=== PATIENT | male | born 1985 | race Caucasian/White ===

== ENCOUNTER 2016-12-09 17:14 | Inpatient (IN) | payer BC, OTHER ==
[~2016-12-09] VITALS: Ht 182.9 cm; Wt 81.6 kg
[2016-12-10 02:45] VITALS: BP 116/65
[2016-12-10] MEDS ORDERED: HYDROXYZINE PAMOATE 25 MG CAPSULE PO PRN (02:45)
[2016-12-10] MEDS ORDERED: LORAZEPAM 1 MG TABLET PO PRN (02:45)
[2016-12-10] MEDS ORDERED: MAGNESIUM HYDROXIDE 30 ML LIQUID UDC PO PRN (02:45)
[2016-12-10] MEDS ORDERED: BUPRENORPHINE HCL 2 MG TAB.SUBL SL PRN (02:45)
[2016-12-10] MEDS ORDERED: ONDANSETRON ODT 4 MG TAB.RAPDIS SL PRN (02:45)
[2016-12-10] MEDS ORDERED: CLONIDINE HCL 0.1 MG TABLET PO PRN (02:45)
[2016-12-10] MEDS ORDERED: MIRALAX 17 GM POWD.PACK PO PRN (02:45)
[2016-12-10] MEDS ORDERED: ONDANSETRON 4 MG/2 ML VIAL IM PRN (02:45)
[2016-12-10] MEDS ORDERED: MAG HYDROX/AL HYDROX/SIMETH 30 ML LIQUID UDC PO PRN (02:45)
[2016-12-10] MEDS ORDERED: LOPERAMIDE HCL 2 MG CAPSULE PO PRN ×2 (02:45)
[2016-12-10] MEDS ORDERED: METHOCARBAMOL 750 MG TABLET PO PRN (02:45)
[2016-12-10] MEDS ORDERED: IBUPROFEN 400 MG TABLET PO PRN (02:45)
[2016-12-10] MEDS ORDERED: DICYCLOMINE HCL 20 MG TABLET PO PRN (02:45)
--- NOTE | 2016-12-10 02:45 | NUR ---
INTAKE ASSESSMENT VS BP-116/65 T- 98.2 P-83 R-18 PA- 0/10. SpO2 AT 95 % IN RA. PATIENT ABLE TO ANSWERS QUESTIONS. SPEECH IS CLEAR AND GAIT IS STEADY. PATIENT STATES HES TIRED. DENIES ANY PAIN. HE STATES HES NOT ALLERGIC TO ANY FOOD OR MEDICATIONS. HE HAS SEIZURE HISTORY, LAST ONE WAS 2015 D/T BENZO W/D. HES HERE FOR THESE SUBSTANCES: XANAX , HEROIN IV AND COCAINE IV. WILL CONTINUE ADMISSION ON 3RD FLOOR.
[2016-12-10] MEDS ORDERED: LORAZEPAM 2 MG/1 ML VIAL IM PRN (03:00)
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
[2016-12-10] MEDS ORDERED: ESCI10TA55 PO (03:56)
[2016-12-10] MEDS ORDERED: METH-406 PO (03:56)
[2016-12-10] MEDS ORDERED: MULT-1169 PO (03:56)
[2016-12-10] MEDS ORDERED: BUSP10TA3 PO (03:56)
[2016-12-10] MEDS ORDERED: CLON0.1T PO (03:56)
[2016-12-10] MEDS ORDERED: GABA600T2 PO (03:56)
--- NOTE | 2016-12-10 07:15 | NUR ---
END OF SHIFT NOTE PATIENT IS A 31 YEAR OLD MALE, NEWLY ADMITTED FOR BENZO/HEROIN AND COCAINE DEPENDENCE. PATIENT DID NOT SLEEP. FLUID INTAKE OF 680 ML. VOIDED X 1. NO BM. LAST COWS 3 AND CIWA 2. ON FALL/SEIZURE PRECAUTION. SAFETY MEASURES IN PLACE. CALL LIGHT IN REACH. WILL CONTINUE TO MONITOR.
--- NOTE | 2016-12-10 07:22 | NUR ---
START OF SHIFT NOTE Patient is laying in bed asleep. Respirations are even and unlabored. patient just feel asleep, did not sleep last night. Last COWS 3 CIWA 2 per night nurse. No PRNs given last night. All safety measures in place. WIll continue to monitor patient.
[2016-12-10 08:18] LABS: *AMPHETAMINE, URINE NEGATIVE (NEGATIVE); *BARBITURATE, URINE NEGATIVE (NEGATIVE); *CANNABINOID, URINE POSITIVE (NEGATIVE); *COCCAINE, URINE POSITIVE (NEGATIVE); *OPIATE, URINE POSITIVE (NEGATIVE); *PHENCYCLIDINE SCREEN,URINE NEGATIVE (NEGATIVE)
[2016-12-10 08:49] VITALS: BP 90/58
[2016-12-10] MEDS ORDERED: TUBERCULIN,PURIF.PROT.DERIV. 5 TU/0.1 ML TEST ID ONE (09:00)
[2016-12-10] MEDS: MULTIVITAMINS,THERAPEUTIC TABLET PO SCH (09:18)
[2016-12-10] MEDS ORDERED: GABAPENTIN 300 MG CAPSULE PO SCH (11:15)
[2016-12-10] MEDS: busPIRone 10 MG TABLET PO SCH ×2 (11:29→17:07)
[2016-12-10] MEDS: ESCITALOPRAM OXALATE 10 MG TABLET PO SCH (11:29)
[2016-12-10] MEDS: LORAZEPAM 1 MG TABLET PO SCH ×3 (12:20→21:03)
[2016-12-10 12:30] VITALS: BP 105/67
[2016-12-10] MEDS: GABAPENTIN 300 MG CAPSULE PO SCH ×2 (15:18→21:03)
[2016-12-10 17:20] VITALS: BP 123/75
--- NOTE | 2016-12-10 18:40 | NUR ---
END OF SHIFT NOTE Patient is a 31 year old male admitted last night for Xanax, heroin, and cocaine. He is alert and orientated X4. Vital signs remained within normal limits throughout the day. Last COWS 6 CIWA 5. Patient has a history of seizures from withdrawal. He refused blood drawls. Patient slept most of the day today. No PRNS given. Patient was seen by Dr. Nicole, 4 day Subutex taper is scheduled to begin tomorrow. All needs have been met. All safety measures in place. Will continue to monitor patient until endorsed to oncoming night nurse.
--- NOTE | 2016-12-10 19:55 | NUR ---
START OF SHIFT Received report from day shift nurse. Pt is in his room watching TV. He is a 31 yo male admitted to [facility] on 12/10 for BZD and Opiate dependence. He is A&O x4 and ambulatory. NKA, full code status, and on a regular diet. He has a PMH of seizure, appendectomy, broken jaw, broken right large toe, bowel obstruction w/surgery, anxiety, and depression. On admission he reported using xanax 10mg per day for two weeks, heroin 1 gram per day for two weeks, and cocaine IV 0.5 grams per day for two weeks. 5 Day Ativan taper started today. 4 day Subutex taper scheduled to start tomorrow based on withdrawal symptoms. Pt reports anxiety. He is noted with flushed face and larger than normal size pupils. Fall and seizure precautions in place. Bed is down with call light in reach.
[2016-12-10 20:00] VITALS: BP 137/80
[2016-12-10] MEDS: diphenhydrAMINE 50 MG CAPSULE PO PRN (21:10)
[2016-12-10] MEDS: ACETAMINOPHEN 325 MG TABLET PO PRN (21:10)
--- NOTE | 2016-12-10 21:11 | NUR ---
PRN Tylenol and Benadryl Pt c/o headache and inability to sleep. PRN Tylenol and Benadryl administered.
--- NOTE | 2016-12-10 22:11 | NUR ---
PRN Tylenol and Benadryl reassessment PRN Tylenol and Benadryl effective. Pt is lying in bed resting with eyes closed. Respirations even and unlabored. Safety measures in place.
[2016-12-11] VITALS: BP 111/71
--- NOTE | 2016-12-11 | NUR ---
0000 COWS and CIWA deferred COWS and CIWA ordered Q4HWA. Pt is lying in bed resting with eyes closed. Vital signs obtained. Safety measures in place.
[2016-12-11 04:00] VITALS: BP 118/72
--- NOTE | 2016-12-11 04:00 | NUR ---
0400 COWS and CIWA deferred COWS and CIWA ordered Q4HWA. Pt is lying in bed resting with eyes closed. Vital signs obtained. Safety measures in place.
--- NOTE | 2016-12-11 07:23 | NUR ---
END OF SHIFT Report provided to day shift nurse. Pt is lying in bed resting. He is a 31 yo male admitted to [facility] on 12/10 for BZD and Opiate dependence. He is A&O x4 and ambulatory. NKA, full code status, and on a regular diet. He has a PMH of seizure, appendectomy, broken jaw, broken right large toe, bowel obstruction w/surgery, anxiety, and depression. On admission he reported using xanax 10mg per day for two weeks, heroin 1 gram per day for two weeks, and cocaine IV 0.5 grams per day for two weeks. 5 Day Ativan taper started 12/10. 4 day Subutex taper scheduled to start today pending withdrawal symptoms. PRN Tylenol and Benadryl administered. Last COWS 6 and CIWA 5 before night medications. He drank 840mL and slept for 8 hours. Fall and seizure precautions in place. Bed is down with call light in reach.
--- NOTE | 2016-12-11 07:33 | NUR ---
START OF SHIFT NOTE Patient is alert and orientated X4 laying in bed resting. Respirations are even and unlabored. Patient slep 8 hours last night per night nurse. Last CIWA 5 COWS 6. He was given Tylenol and Benadryl last night per night nurse with effectiveness. Patient is on a 5 day Ativan taper and starts a 4 day subutex taper today. All safety measures in place. Will continue to monitor patient.
[2016-12-11 08:10] VITALS: BP 113/68
[2016-12-11] MEDS: GABAPENTIN 300 MG CAPSULE PO SCH ×3 (08:37→20:23)
[2016-12-11] MEDS: ESCITALOPRAM OXALATE 10 MG TABLET PO SCH (08:37)
[2016-12-11] MEDS: busPIRone 10 MG TABLET PO SCH ×2 (08:37→16:21)
[2016-12-11] MEDS: LORAZEPAM 1 MG TABLET PO SCH ×3 (08:37→20:23)
[2016-12-11] MEDS: MULTIVITAMINS,THERAPEUTIC TABLET PO SCH (08:37)
[2016-12-11] MEDS ORDERED: 4 DAY TAPER BUPRENORPHINE -SERENITY PROTOCOL SL PRN (09:00)
[2016-12-11] MEDS: BUPRENORPHINE HCL 2 MG TAB.SUBL SL SCH ×3 (09:17→20:24)
[2016-12-11 12:57] VITALS: BP 139/84
[2016-12-11 17:51] VITALS: BP 102/62
--- NOTE | 2016-12-11 18:47 | NUR ---
END OF SHIFT NOTE Patient is a 31 year old male admitted on 12/10/16 for Heroin , Xanax, and cocaine. Patient is a full code regular diet with NKA. Patient is a on a 4 day Subutex taper started 12/11/16 and 5 day Ativan taper started 12/10/16 both tolerating well. No prns given today. Last COWS 7 CIWA5 vitals remained within normal limits throughout the day. Patient participated in group and activities today. He has been compliant with MDs orders except refused blood drawl and is aware. All safety measures are in place per hospital policy. All needs have been met. Will continue to monitor patient until endorsed to night nurse.
--- NOTE | 2016-12-11 19:50 | NUR ---
START OF SHIFT Received report from day shift nurse. Pt attended a group meeting and returned to his room after. He is a 31 yo male admitted to [facility] on 12/10 for BZD and Opiate dependence. He is A&O x4 and ambulatory. NKA, full code status, and on a regular diet. He has a PMH of seizure, appendectomy, broken jaw, broken right large toe, bowel obstruction w/surgery, anxiety, and depression. On admission he reported using xanax 10mg per day for two weeks, heroin 1 gram per day for two weeks, and cocaine IV 0.5 grams per day for two weeks. 5 Day Ativan taper started 12/10 and 4 day Subutex taper started today. Pt reports anxiety, body aches, and chills. He is noted with facial flushing. Tapers due tonight. Fall and seizure precautions in place. Bed is down with call light in reach.
[2016-12-11 20:00] VITALS: BP 150/89
[2016-12-11] MEDS: diphenhydrAMINE 50 MG CAPSULE PO PRN (23:14)
--- NOTE | 2016-12-11 23:15 | NUR ---
PRN Benadryl Pt reports inability to fall asleep. PRN Benadryl administered.
[2016-12-12] VITALS: BP 126/86
--- NOTE | 2016-12-12 00:15 | NUR ---
PRN Benadryl reassessment PRN Benadryl effective. Pt is lying in bed resting with eyes closed. Respirations even and unlabored. Safety measures in place.
[2016-12-12 04:00] VITALS: BP 120/75
--- NOTE | 2016-12-12 04:00 | NUR ---
0400 COWS and CIWA deferred COWS and CIWA ordered Q4HWA. Pt is lying in bed resting with eyes closed. Vital signs obtained. Safety measures in place.
--- NOTE | 2016-12-12 07:11 | NUR ---
END OF SHIFT Report provided to day shift nurse. Pt is lying in bed resting. He is a 31 yo male admitted to [facility] on 12/10 for BZD and Opiate dependence. He is A&O x4 and ambulatory. NKA, full code status, and on a regular diet. He has a PMH of seizure, appendectomy, broken jaw, broken right large toe, bowel obstruction w/surgery, anxiety, and depression. On admission he reported using xanax 10mg per day for two weeks, heroin 1 gram per day for two weeks, and cocaine IV 0.5 grams per day for two weeks. 5 Day Ativan taper started 12/10 and 4 day Subutex taper started 12/11. PRN Benadryl administered. Last COWS 5 and CIWA 3. He drank 3574mL and slept for 7 hours. Fall and seizure precautions in place. Bed is down with call light in reach.
--- NOTE | 2016-12-12 07:32 | NUR ---
START OF SHIFT: RECEIVED PT A/O X 4. HE PRESENTS WITH ANXIOUS MOOD AND CONGRUENT AFFECT. HE REPORTS SOME MILD ANXIETY,NIGHT SWEATS AND BODY ACHES. HE ATIVAN/SUBUTEX TAPER IN PROGRESS. WILL MEDICATE ORDERED. REEMA 3 COWS 5. ENCOURAGED INCREASED FLUIDS TO ASSIST IN FACILITATING DETOX PROCESS. ENCOURAGED GROUP ATTENDANCE TO IMPROVE COPING SKILLS. WILL CONTINUE TO MONITOR AND OFFER SUPPORT. Addendum: 12/12/16 at 0903 by JAI JAUREGUI RN correction cows 8
[2016-12-12 08:00] VITALS: BP 138/91
[2016-12-12] MEDS: GABAPENTIN 300 MG CAPSULE PO SCH ×3 (08:51→21:07)
[2016-12-12] MEDS: busPIRone 10 MG TABLET PO SCH ×2 (08:51→16:47)
[2016-12-12] MEDS: MULTIVITAMINS,THERAPEUTIC TABLET PO SCH (08:52)
[2016-12-12] MEDS: LORAZEPAM 1 MG TABLET PO SCH ×4 (08:52→21:07)
[2016-12-12] MEDS: ESCITALOPRAM OXALATE 10 MG TABLET PO SCH (08:52)
[2016-12-12] MEDS ORDERED: BUPRENORPHINE HCL 2 MG TAB.SUBL SL SCH (09:00)
[2016-12-12] MEDS ORDERED: HYDROXYZINE PAMOATE 25 MG CAPSULE PO PRN (10:15)
[2016-12-12 12:00] VITALS: BP 132/82
--- NOTE | 2016-12-12 13:14 | NUR ---
Therapist prompted client about group times. Client stated he would attend all groups today.
[2016-12-12] MEDS: BUPRENORPHINE HCL 2 MG TAB.SUBL SL SCH ×2 (15:08→21:08)
[2016-12-12 16:00] VITALS: BP 118/84
--- NOTE | 2016-12-12 18:43 | NUR ---
END OF SHIFT: PT CONTINUES ON ATIVAN/SUBUTEX TAPER. LAST CIWA 2 COWS 5. HE STATES HE REPORTED RESTLESSNESS,ANXIETY,CHILLS AND SWEATS TODAY. HE STATES DETOX MEDS ARE EFFECTIVE. NO PRNS GIVEN ON THIS SHIFT. HE ATTENDED ONE OF THE TWO GROUPS AND RESTED IN HIS ROOM PART OF SHIFT. HE WAS COMPLIANT WITH INCREASED FLUIDS. WILL PASS SHIFT REPORT TO ONCOMING NIGHT NURSE.
[2016-12-12 20:10] VITALS: BP 127/78
--- NOTE | 2016-12-12 20:15 | NUR ---
Start of shift report: Rec'd patient resting in room. A/A Ox4. Afebrile and vital signs are stable. Patient is on Subutrex 4 days/Ativan 5 days taper. Patient report mild anxiety. Patient 's COWS score is 5/CIWA is 2. Patient encouraged to increase fluids intake to assist in facilitating Detox process. Encouraged group attendance to improved coping skills. No other concerns at this time. Safety precaution in progress. Bed is in the lowest position, side rails are up and call light within reach.
[2016-12-12] MEDS: diphenhydrAMINE 50 MG CAPSULE PO PRN (21:22)
--- NOTE | 2016-12-12 21:22 | NUR ---
PRN Medication: Patient requested Benadryl for sleep. Benadryl given per request. Will continue to monitor closely.
--- NOTE | 2016-12-12 22:22 | NUR ---
Benadryl Reassessment: Sleeping soundly in bed. No signs of distress. Will continue to monitor closely.
--- NOTE | 2016-12-13 01:37 | NUR ---
0035: 0000 Vital signs refused. CIWA & COWS deferred. Resting quietly in bed. Resp even and unlabored. RR 16. Will continue to monitor closely.
--- NOTE | 2016-12-13 06:44 | NUR ---
EOS report: No interval changes during the night. Ativan and Subutex taper in progress and patient tolerating well. Vital signs remained stable. Rec'd 1 prn medication during the night. Patient slept 6 hrs. No other concerns at this time. All needs were met. Safety and fall precaution maintained. Will endorse to oncoming shiftn to follow up care.
--- NOTE | 2016-12-13 07:10 | NUR ---
Start of shift note SBAR report rcv'd. Pt was admitted for benzo and opiate dependence and cocaine abuse. Pt has a PMHx of anxiety, depression, and withdrawal induced seizures. Pt is on a 4 day subutex and 5 day ativan taper. Pt reports NKA, is a full code and on a regular diet. Pt is currently resting in bed, pt is on fall and seizure precautions. Bed is locked in a low position, call light within reach, side rails up x 2. Will continue to monitor pt, all needs addressed at this time.
[2016-12-13 08:00] VITALS: BP 119/73
[2016-12-13] MEDS: MULTIVITAMINS,THERAPEUTIC TABLET PO SCH (09:43)
[2016-12-13] MEDS: ESCITALOPRAM OXALATE 10 MG TABLET PO SCH (09:43)
[2016-12-13] MEDS: GABAPENTIN 300 MG CAPSULE PO SCH ×3 (09:44→20:20)
[2016-12-13] MEDS: busPIRone 10 MG TABLET PO SCH ×2 (09:44→17:28)
[2016-12-13] MEDS: BUPRENORPHINE HCL 2 MG TAB.SUBL SL SCH ×3 (09:44→20:20)
[2016-12-13] MEDS: LORAZEPAM 1 MG TABLET PO SCH ×3 (09:44→20:20)
[2016-12-13 12:00] VITALS: BP 119/83
[2016-12-13 16:00] VITALS: BP 131/85
--- NOTE | 2016-12-13 18:54 | NUR ---
End of shift note Pt was admitted for benzo and opiate dependence and cocaine abuse. Pt has a PMHx of anxiety, depression, and withdrawal induced seizures. Pt is on a 4 day subutex and 5 day ativan taper and tolerating well without any ASE. Pt reports NKA, is a full code and on a regular diet. Pt did not require any PRN medication during the shift. Pt has a recent COWS of 4 and CIWA of 3 at 1600. Pt is attending groups and activities and participating in plan of care. Pt ate 75% of breakfast, 25% of lunch, 100% of dinner, drank 2992ml of fluids and had 4 voids. Pt has no complaints at this time. Will endorse SBAR to oncoming shift. All needs addressed at this time.
--- NOTE | 2016-12-13 19:55 | NUR ---
Start of shift report: Rec'd patient resting in room. A/A Ox4. Afebrile and vital signs are stable. Patient is on Subutrex 4 days/Ativan 5 days taper. Patient report mild anxiety. Patient 's COWS score is 4/CIWA is 3. Reviewed current plan of care. Patient voiced understanding. Patient requested no vital signs @ midnight and 0400. Patient encouraged to increase fluids intake to assist in facilitating Detox process. Encouraged group attendance to improved coping skills. No other concerns at this time. Safety precaution in progress. Bed is in the lowest position, side rails are up and call light within reach.
[2016-12-13 20:10] VITALS: BP 137/83
[2016-12-13] MEDS: diphenhydrAMINE 50 MG CAPSULE PO PRN (22:13)
--- NOTE | 2016-12-13 22:14 | NUR ---
PRN Medication: Medicated with Benadryl per patient request. Will continue to monitor closely.
--- NOTE | 2016-12-13 23:14 | NUR ---
Benadryl reassessment: Patient resting quietly in bed. No signs of ditress. Will continue to monitor closely.
--- NOTE | 2016-12-14 06:43 | NUR ---
EOS report: No interval changes during the night. Ativan and Subutex taper in progress and patient tolerating well. Vital signs remained stable. Rec'd 1 prn medication during the night. Patient slept a total of 5 hrs. No other concerns at this time. All needs were met. Safety and fall precaution maintained. Bed kept in the lowest position, side rails are up, and call light within reach. Will endorse to oncoming shift to follow up care.
--- NOTE | 2016-12-14 07:45 | NUR ---
BEGINNING OF SHIFT Patient endorsement report received from childcare director nurse, all pertinent information discussed. Patient with admitting Dx: BZO/opiate dependence. Patient also with substance use of: cocaine. Patient currently with ongoing 4 day Ativan taper and 4 day Subutex taper as ordered, as per childcare director. Patient with last cow score of: 4, and last ciwa score of: 3. Patient Received PRN: Benadryl. slept for 5 hours. Fall and seizure precautions observed and in place. safety measures in place. will continue to monitor closely. Patient received in room, alert and oriented x4, educated regarding plan of care for the day and medication regimen with good verbal understanding. Will continue to monitor.
[2016-12-14 08:27] VITALS: BP 118/63
[2016-12-14] MEDS: ESCITALOPRAM OXALATE 10 MG TABLET PO SCH (08:30)
[2016-12-14] MEDS: MULTIVITAMINS,THERAPEUTIC TABLET PO SCH (08:31)
[2016-12-14] MEDS: GABAPENTIN 300 MG CAPSULE PO SCH ×3 (08:31→21:00)
[2016-12-14] MEDS: LORAZEPAM 1 MG TABLET PO SCH ×2 (08:31→21:00)
[2016-12-14] MEDS: busPIRone 10 MG TABLET PO SCH ×2 (08:31→16:00)
[2016-12-14] MEDS ORDERED: BUPRENORPHINE HCL 2 MG TAB.SUBL SL SCH (09:00)
--- NOTE | 2016-12-14 13:04 | NUR ---
explained risk and benefits x 3 to patient regarding refusal of lab draw
[2016-12-14 13:46] VITALS: BP 112/69
[2016-12-14] MEDS: ACETAMINOPHEN 325 MG TABLET PO PRN ×2 (15:59→22:56)
[2016-12-14 17:50] VITALS: BP 137/86
[2016-12-14] MEDS ORDERED: DIPH50CA37 PO (18:01)
[2016-12-14] MEDS ORDERED: ESCI10TA PO (18:01)
[2016-12-14] MEDS ORDERED: HYDR-3895 PO (18:01)
[2016-12-14] MEDS ORDERED: GABA-534 PO (18:01)
[2016-12-14] MEDS ORDERED: METH-406 PO (18:01)
[2016-12-14] MEDS ORDERED: IBUP-1953 PO (18:01)
[2016-12-14] MEDS ORDERED: DICY20TA28 PO (18:01)
--- NOTE | 2016-12-14 19:15 | NUR ---
START OF SHIFT Endorsement from AM nurse received. Patient alert and oriented x4 resting in bed. Patient continues with 5 day Ativan taper and 4 day Subutex taper as ordered for Benzo and opiate detox. Patient last COWS 4 CIWA 3. patient reported joint aches, moist eyes, tremors that can be felt but not seen, and anxiety. Patient denies SI or HI, has history of anxiety and depression. Denies current depression. reports continued anxiety. vital signs stable. Tolerating diet and fluids. no noted nausea or vomiting. Denies current pain. Patient is on a full code and on a regular diet. Safety measures in place. Will continue to monitor.
--- NOTE | 2016-12-14 19:26 | NUR ---
END OF SHIFT Patient alert and oriented x4, vital signs were stable during shift. Patient compliant with therapeutic plan of care. Patient continues with ongoing with ongoing 5 day Ativan taper and 4 day Subutex taper as ordered, well tolerated, no ASE noted. 0900 assessment patient presented with: mild bone and joint aches, moist eyes, tremors that can be felt but not seen, mild anxiety, and barely sweating with cow score of: 4 and ciwa score of: 3; 1300 assessment patient presented with: mild bone and joint aches, moist eyes, tremors that can be felt but not seen, mild anxiety, and barely sweating with cow score of: 4 and ciwa score of: 3. 1700 assessment patient presented with: mild bone and joint aches, moist eyes, tremors that can be felt but not seen, mild anxiety, and barely sweating with cow score of: 4 and ciwa score of: 3 During shift patient received PRN: Tylenol , medication was effective. Patient denies any SI/HI. Encouraged patient to attend group therapies/sessions to learn new coping skills to prevent relapse/ Vital signs were stable during shift. Safety measures in place. Will continue to monitor.
[2016-12-14 20:00] VITALS: BP 139/86
--- NOTE | 2016-12-14 21:16 | NUR ---
PRN MEDICATION Patient with complaints of constipation. Reports no BM x 2 days. Abdomen soft. Bowel sounds active in all quadrants. Milk of Magnesia 30 ML PO administered at 2115. Will continue to monitor.
--- NOTE | 2016-12-14 22:20 | NUR ---
reassessment of PRN Reassessment of patient one hour after Milk of magnesia given. No relief/BM as of late. Patient Bowel sounds active, no noted abdominal pain. Will continue to monitor.
[2016-12-14] MEDS: diphenhydrAMINE 50 MG CAPSULE PO PRN (22:56)
--- NOTE | 2016-12-14 23:00 | NUR ---
PRN MEDICATION Benadryl 50 mg PO given at 2300 for c/o insomnia Effect pending. Tylenol 650 mg PO given at 2300 for C/O tooth pain of a 4 out of 10 upper right side. no edema or abnormality noted. . Effect pending
[2016-12-15] VITALS: BP 121/57
--- NOTE | 2016-12-15 | NUR ---
COWS/CIWA DEFERRED/ VITAL SIGNS REFUSED COWS AND CIWA DEFERRED DUE TO SLEEP. PATIENT REFUSED VITAL SIGNS, REQUESTING TO SLEEP. RESTING COMFORTABLY IN BED. RESPIRATIONS 16 BREATHING UNLABORED AND EVEN.
--- NOTE | 2016-12-15 | NUR ---
REASSESSMENT OF PATIENT PATIENT RESTING COMFORTABLY ONE HOUR AFTER TAKING BENADRYL 50 MG PO FOR INSOMNIA. PATIENT WITH NO FURTHER C/O TOOTH PAIN ONE HOUR AFTER ADMINISTRATION OF TYLENOL 650 MG PO FOR TOOTH PAIN. WILL CONTINUE TO MONITOR.
--- NOTE | 2016-12-15 04:00 | NUR ---
COWS/CIWA DEFERRED VITAL SIGNS REFUSED COWS AND CIWA DEFERRED DUE TO SLEEP. PATIENT REFUSED VITAL SIGNS, RESTING IN BED STATED "I JUST WANT TO SLEEP". RESPIRATIONS 16 BREATHING EVEN AND UNLABORED
--- NOTE | 2016-12-15 07:03 | NUR ---
END OF SHIFT Patient is a 31 year old male admitted on 12-10-16 for opiate and benzodiazepine detox. He was placed on a 4 day subutex and 5 day Ativan taper. He is tolerating tapers without complications noted. Patient with history of seizures related to benzo withdrawal, with last known seizure in 2015. Patient placed on fall and seizure precaution. He has no known allergies, is a full code and on a regular diet. Patients VS at 1999 BP 139/86, P 88, R 16, SPO2 96% on RA, T 97.7. Patient WITH COWS of 2, CIWA of 2. Patient given PRN Milk of Magnesia at 2116 for constipation. Patient did not have BM on PM shift. Patient with no abdominal pain, Abdomen soft and non tender, active Bowel sounds noted in all quadrants. Patient reported last BM x 2-3 days ago. Patient received PRN Benadryl 50 mg PO at 2300 for insomnia as well as Tylenol 650mg PO for C/O tooth pain. Effectiveness noted. Patient was asleep one hour later and refused VS at both 0000 and 0400. COWS and CIWA deferred for sleeping. Patient slept a total of 6 hours Intake 1090 ml. Output: void X 3. No BM on PM shift. Patient currently resting in bed, 2 side rails up, call light within reach, safety measures in place, with endorsement to AM shift.
--- NOTE | 2016-12-15 07:50 | NUR ---
BEGINNING OF SHIFT Patient endorsement report received from shift lab technician nurse, all pertinent information discussed. Patient with admitting Dx: BZO/opiate dependence. Patient also with substance use of: cocaine. Patient currently with ongoing 4 day Ativan taper and 4 day Subutex taper as ordered, as per shift lab technician. Patient with last cow score of: 2, and last ciwa score of: 2. Patient Received PRN: Benadryl, Milk of Magensium, and tylenol, medications were effective as per shift lab technician. slept for 6 hours. Fall and seizure precautions observed and in place. safety measures in place. will continue to monitor closely. Patient received in room, alert and oriented x4, educated regarding plan of care for the day and medication regimen with good verbal understanding. Will continue to monitor.
[2016-12-15 08:13] VITALS: BP 121/77
[2016-12-15] MEDS: GABAPENTIN 300 MG CAPSULE PO SCH ×3 (08:47→21:09)
[2016-12-15] MEDS: MULTIVITAMINS,THERAPEUTIC TABLET PO SCH (08:47)
[2016-12-15] MEDS: busPIRone 10 MG TABLET PO SCH ×2 (08:47→16:09)
[2016-12-15] MEDS: ESCITALOPRAM OXALATE 10 MG TABLET PO SCH (08:48)
[2016-12-15] MEDS ORDERED: CLONIDINE HCL 0.1 MG TABLET PO ONE (12:00)
[2016-12-15] MEDS ORDERED: MIRALAX 17 GM POWD.PACK PO ONE (12:00)
[2016-12-15] MEDS ORDERED: MAGNESIUM CITRATE 296 ML BOTTLE PO PRN (12:00)
[2016-12-15 12:18] VITALS: BP 132/79
[2016-12-15] MEDS: DOCUSATE SODIUM 250 MG CAPSULE PO SCH (12:19)
[2016-12-15] MEDS: CLONIDINE HCL 0.1 MG TABLET PO SCH ×2 (16:09→21:09)
[2016-12-15 16:52] LABS: *AMPHETAMINE, URINE NEGATIVE (NEGATIVE); *BARBITURATE, URINE NEGATIVE (NEGATIVE); *CANNABINOID, URINE NEGATIVE (NEGATIVE); *COCCAINE, URINE NEGATIVE (NEGATIVE); *OPIATE, URINE NEGATIVE (NEGATIVE); *PHENCYCLIDINE SCREEN,URINE NEGATIVE (NEGATIVE)
[2016-12-15 17:11] VITALS: BP 122/76
--- NOTE | 2016-12-15 18:55 | NUR ---
END OF SHIFT Patient alert and oriented x4, vital signs were stable during shift. Patient compliant with therapeutic plan of care. Patient completed 5 day Ativan taper and 4 day Subutex taper, well tolerated, no ASE noted. Patient is scheduled to be discharge tomorrow morning, noted self motivated towards sobriety. 0900 assessment patient presented with: mild bone and joint aches, and mild anxiety with cow score of: 2 and ciwa score of: 1; 1300 assessment patient presented with: mild bone and joint aches, and mild anxiety with cow score of: 2, and ciwa score of: 1; 1700 assessment patient presented with: mild anxiety with cow score of: 1 and ciwa score of: 1. During shift patient received no PRN medications. Patient was seen by Dr. Nicole, patient reports has not had a bowel movement, MD aware with new orders for Miralax and DSS m medications were administered as ordered, patient reported medications were effective, patient had one bowel movement. Patient denies any SI/HI. Encouraged patient to attend group therapies/sessions to learn new coping skills to prevent relapse/ Vital signs were stable during shift. Safety measures in place. Will continue to monitor.
--- NOTE | 2016-12-15 19:15 | NUR ---
START OF SHIFT Endorsement from AM nurse received. Patient alert and oriented x4 ambulating ad keeley on unit.. Patient completed 5 day Ativan taper and 4 day Subutex taper. Patient last COWS 1 CIWA 1. Patient denies SI or HI, has history of anxiety and depression. Denies current depression. reports continued mild anxiety. vital signs stable. Tolerating diet and fluids. no noted nausea or vomiting. Denies current pain. Patient is on a full code and on a regular diet. Safety measures in place. Will continue to monitor.
[2016-12-15 20:00] VITALS: BP 121/79
[2016-12-15] MEDS: diphenhydrAMINE 50 MG CAPSULE PO PRN (22:03)
--- NOTE | 2016-12-15 22:03 | NUR ---
PRN medication Benadryl 50 mg PO given at 2203 for c/o insomnia. Effect pending.
--- NOTE | 2016-12-15 23:05 | NUR ---
REASSESSMENT OF PATIENT PATIENT REASSESSED ONE HOUR AFTER BENADRYL 50 MG PO PRN ADMINISTERED FOR INSOMNIA. PATIENT RESTING COMFORTABLY IN BED WITH EYES CLOSED. RESPIRATIONS 16. BREATHING EVEN AND UNLABORED.
--- NOTE | 2016-12-16 | NUR ---
COWS/CIWA DEFERRED/ VITAL SIGNS REFUSED COWS AND CIWA DEFERRED DUE TO SLEEP. PATIENT REFUSED VITAL SIGNS, REQUESTING TO SLEEP. RESTING COMFORTABLY IN BED. RESPIRATIONS 16.
--- NOTE | 2016-12-16 04:00 | NUR ---
COWS/CIWA DEFERRED/ VITAL SIGNS REFUSED PATIENT REFUSED VITAL SIGNS, REQUESTING TO SLEEP. RESTING COMFORTABLY IN BED. BREATHING EVEN AND UNLABORED WITH RESPIRATIONS 16. COWS AND CIWA DEFERRED DUE TO SLEEP.
--- NOTE | 2016-12-16 06:49 | NUR ---
END OF SHIFT Patient is a 31 year old male admitted on 12-10-16 for opiate and benzodiazepine detox. He was placed on a 4 day subutex and 5 day Ativan taper. He has completed both tapers without complications noted. Patient with history of seizures related to benzodiazepine withdrawal, with last known seizure in 2015. Patient on both fall and seizure precaution. He has no known allergies, is a full code and on a regular diet. Patients VS at 1999 BP 121/79, P 84, R 18, SPO2 98% on RA, T 97.0 Patient WITH COWS of 1, CIWA of 1. Patient received PRN Benadryl 50 mg PO at 2203 for insomnia. Effectiveness noted. Patient was asleep one hour later and refused VS at both 0000 and 0400. COWS and CIWA deferred for sleeping. Patient slept a total of 6 hours Intake: 1055 ml. Output: void X 3 .BM x 1.. Patient currently resting in bed, 2 side rails up, call light within reach, safety measures in place, with endorsement to AM shift.
[2016-12-16 08:00] VITALS: BP 100/67
--- NOTE | 2016-12-16 08:05 | NUR ---
START OF SHIFT: RECEIVED PT A/O X 4. HE STATES HE SLEPT WELL AND IS FEELING BETTER. HE STATES SOME MILD ANXIETY TODAY HE DISCHARGES TO SOBER LIVING.DETOX TAPERS COMPLETED. VSS. DISCHARGE PLANNING IN PROGRESS. WILL CONTINUE TO MONITOR AND PROVIDE SUPPORT.
[2016-12-16] MEDS: MULTIVITAMINS,THERAPEUTIC TABLET PO SCH (08:34)
[2016-12-16 08:35] VITALS: BP 110/67
[2016-12-16] MEDS: DOCUSATE SODIUM 250 MG CAPSULE PO SCH (08:35)
[2016-12-16] MEDS: CLONIDINE HCL 0.1 MG TABLET PO SCH (08:35)
[2016-12-16] MEDS: ESCITALOPRAM OXALATE 10 MG TABLET PO SCH (08:35)
[2016-12-16] MEDS: busPIRone 10 MG TABLET PO SCH (08:35)
[2016-12-16] MEDS: GABAPENTIN 300 MG CAPSULE PO SCH (08:35)
--- NOTE | 2016-12-16 09:30 | NUR ---
DISCHARGE: PT IS A/O X4. HE DENIES S/I AND H/I. HE STATES HE IS MOTIVATED TO STAY CLEAN AND FEELS ENTHUSIASTIC. BELONGINGS RETURNED. EDUCATED PT ON DISCHARGE INSTRUCTIONS AND MEDICATIONS. VENDING ATTENDANT ESCORTED PT TO [facility] WHERE HE WAS TRANSPORTED BY [facility] TO [facility].
== END 2016-12-16 09:18 | disposition home or self-care (01) | DRG 895 ==
LOC: SRC 12-10 02:16
PROVIDERS: ADMIT Internal Medicine; ATTEND Internal Medicine
PROC: HZ2ZZZZ Detoxification Services for Substance Abuse Treatment (ICD-10-PCS; principal; 2016-12-10)
PROC: HZ31ZZZ Individual Counseling for Substance Abuse Treatment, Behavioral (ICD-10-PCS; 2016-12-12)
PROC: HZ41ZZZ Group Counseling for Substance Abuse Treatment, Behavioral (ICD-10-PCS; 2016-12-12)
DX: F11.23 Opioid dependence with withdrawal (principal); F33.1 Major depressive disorder, recurrent, moderate; F14.20 Cocaine dependence, uncomplicated; F12.10 Cannabis abuse, uncomplicated; Z87.81 Personal history of (healed) traumatic fracture; Z59.0 Homelessness; Z90.49 Acquired absence of other specified parts of digestive tract; F41.9 Anxiety disorder, unspecified; K59.03 Drug induced constipation; F17.210 Nicotine dependence, cigarettes, uncomplicated
CPT/HCPCS: 70030-TC; 73130; 80307; 80346; 80349; 80353; 80361; Q0163

== ENCOUNTER 2017-02-07 11:03 | Inpatient (IN) | payer BC, OTHER ==
[~2017-02-07] VITALS: Ht 182.9 cm; Wt 82.1 kg
[~2017-02-07 11:03] MED LIST: BUSP10TA3 PO; CLON0.1T PO; DICY20TA28 PO; DIPH50CA37 PO; ESCI10TA PO; ESCI10TA55 PO; GABA-534 PO; HYDR-3895 PO; IBUP-1953 PO; METH-406 PO
[2017-02-07 12:45] VITALS: BP 130/78
[2017-02-07] MEDS ORDERED: GABA600T2 PO (13:06)
[2017-02-07] MEDS ORDERED: ESCI10TA PO (13:07)
[2017-02-07] MEDS ORDERED: BUPR-51 PO (13:08)
[2017-02-07] MEDS ORDERED: BUPRENORPHINE HCL 2 MG TAB.SUBL SL PRN (13:15)
[2017-02-07] MEDS ORDERED: LOPERAMIDE HCL 2 MG CAPSULE PO PRN ×2 (13:15)
[2017-02-07] MEDS ORDERED: MAGNESIUM HYDROXIDE 30 ML LIQUID UDC PO PRN (13:15)
[2017-02-07] MEDS ORDERED: MAG HYDROX/AL HYDROX/SIMETH 30 ML LIQUID UDC PO PRN (13:15)
[2017-02-07] MEDS ORDERED: ONDANSETRON ODT 4 MG TAB.RAPDIS SL PRN (13:15)
[2017-02-07] MEDS ORDERED: ONDANSETRON 4 MG/2 ML VIAL IM PRN (13:15)
--- NOTE | 2017-02-07 15:07 | NUR ---
PREADMISSION NOTE 31 year old male, admitted to [facility] for heroin substance use detox. RN assessed pt in Intake. Pt reports using heroin for 11 years. Has been using 1.5 to 2 gm IV x 2 weeks. Last use today at 0200. History of inpatient detox at [facility] 12/10/16. Pt then was in sober living beginning 01/16/17. Stayed sober 45 days, and then began using heroin 2 weeks ago. Also is a daily smoker. Home medications of gabapentin, Lexapro and Wellbutrin brought from home and Pt states he took a dose today at 1100. History of anxiety and depression, appendectomy, jaw surgery, open reduction and internal fixation of large toe fracture. Vital signs at 1245 are BP 130/78, pulse 75, temperature 98.1, RR 16, oxygen saturation 97 percent, pain 0/10. Height 6 feet, 0 inches. NKA. Pt to be admitted to room 308. Home medications given to RN. Addendum: 02/07/17 at 1509 by MEI SANDOVAL RN Pt assessed in Intake at 1245.
--- NOTE | 2017-02-07 15:09 | NUR ---
ADMISSION NOTE 31 year old male, admitted to [facility] to detoxify from heroin substance use. Arrived in intake approximately 1230pm. RN met Pt in intake approximately 1245. Pt is primary source of information. Pt has been using heroin for 11 years. Has been using 1.5 to 2 gm IV for last 2 weeks. Last use today at 0200. History of previous inpatient detox at [facility] 12/10/16. Pt then was in sober living. Stayed sober 45 days, and then began using heroin 2 weeks ago. Prior history of benzo substance abuse for Xanax with last admission to [facility], however denies use of Xanax prior to this admission. Pt is a daily smoker. Home medications of Gabapentin, Lexapro and Wellbutrin. Pt brought medications from home. Pt states he took a dose of each home medication today at 1100. NKA. History of anxiety and depression, appendectomy, jaw surgery, open reduction and internal fixation of large toe. History of one seizure due to withdrawal from benzo in 2005. Denies any family history of medical/psychiatric/substance abuse for parents or siblings, with exception of mother having had depression. Vital signs at 1245 are BP 130/78, pulse 75, temperature 98.1, RR 16, oxygen saturation 97 percent, pain 0/10. Height 6 feet, 0 inches. Substance use history: 1. Heroin. First used 11 years ago. Currently uses daily, 1.5-2 grams IV. Last use today at 0200. Has been using at this rate x 2 weeks. Last admission to detox 12/10/16. Admitted to sober living 01/16/17. Admitted to room 308 at 1300. Skin check done and skin is intact. COWS score 2. Pt states he no longer has fun using heroin, only uses it so he is not sick. He feels this is his last chance to have a normal, drug free life. He would like to be able to buy a house and not spend all his money on drugs. He lives with his girl friend and identifies his mother and his girl friend as his support system. He states after this admission he will either go again to sober living or home. He identifies that this time he will need more support when he goes home. Pt oriented to unit. Fall precautions in place. Bed in low position and locked, side rails up x 2, call ng within reach. Education material for Hep C, smoking cessation, substance abuse and medication side effects given to and P. Pt signed for receipt for educational material. Pt provided UDS. Receipt of home medications signed for by Pt and RN.
[2017-02-07 15:23] LABS: *AMPHETAMINE, URINE NEGATIVE (NEGATIVE); *BARBITURATE, URINE NEGATIVE (NEGATIVE); *CANNABINOID, URINE NEGATIVE (NEGATIVE); *COCCAINE, URINE NEGATIVE (NEGATIVE); *OPIATE, URINE POSITIVE (NEGATIVE); *PHENCYCLIDINE SCREEN,URINE NEGATIVE (NEGATIVE)
[2017-02-07 17:00] VITALS: BP 98/54
[2017-02-07] MEDS ORDERED: PATIENT MAY USE OWN MED- MD OK PO SCH (17:00)
[2017-02-07] MEDS: HYDROXYZINE PAMOATE 25 MG CAPSULE PO PRN (17:45)
[2017-02-07] MEDS: DICYCLOMINE HCL 20 MG TABLET PO PRN (17:45)
[2017-02-07] MEDS: METHOCARBAMOL 750 MG TABLET PO PRN (17:45)
[2017-02-07] MEDS: IBUPROFEN 600 MG TABLET PO PRN (17:45)
--- NOTE | 2017-02-07 17:45 | NUR ---
PRN MEDICATION ADMINISTRATION Pt reporting stomach cramps, anxiety, body aches. Given Bentyl, Vistaril, Motrin, Robaxin PRN. Will reassess.
[2017-02-07] MEDS: GABAPENTIN 600 MG PO SCH (18:02)
--- NOTE | 2017-02-07 18:45 | NUR ---
PRN MEDICATION REASSESSMENT Pt reports decrease in pain and stomach cramps. Anxiety remains moderate.
--- NOTE | 2017-02-07 18:53 | NUR ---
END OF SHIFT NOTE 31 year old male, admitted to [facility] for heroin substance use detox. RN assessed pt in Intake. Pt reports using heroin for 11 years. Has been using 1.5 to 2 gm IV x 2 weeks. Last use today at 0200. History of inpatient detox at [facility] 12/10/16. Pt then was in sober living beginning 01/16/17. Stayed sober 45 days, and then began using heroin 2 weeks ago. Also is a daily smoker. Home medications of gabapentin, Lexapro and Wellbutrin brought from home and Pt states he took a dose today at 1100. History of anxiety and depression, appendectomy, jaw surgery, open reduction and internal fixation of large toe fracture. COWS 8 at 1730, PRN Subutex not given as COWS <12. At 1745 given Bentyl, Vistaril, Motrin, Robaxin for stomach cramps, body aches, anxiety. 1845, pt reports improvement in stomach cramps and body pain, but anxiety remains moderate. Report given to night RN. Bed in low position and locked, side rails up x 2, call ng within reach.
--- NOTE | 2017-02-07 19:15 | NUR ---
Start of Shift Note: Patient is a 31 y/o male admitted today 02/07/17 for Opiate dependence. Patient reported using Heroin intravenously 1.5 to 2 grams daily for 2 weeks. Patient has PMHx of Anxiety & Depression, surgical history of Appendectomy, Jaw surgery & big toe Sx. Patient has history of seizure in 2005 d/t benzo withdrawal. Patient is on a regular diet with no known food and drug allergies. Full Code status. Skin noted to be intact. Patient is to be started on a Subutex taper tomorrow. PRN medications available for signs and symptoms of withdrawal. Last COWS is 8. Patient was given PRN Bentyl, Vistaril, Motrin & Robaxin during day shift and were effective. Patient is alert & oriented x4. No shortness of breath noted. Respiration even & unlabored. Abdomen soft & non-distended. No nausea noted. Patient presented with complains of sweating, chills, 6/10 generalized body aches, runny nose, stomach cramps, anxiety & restless legs. Patients pupils were dilated. Hand tremors felt but not seen. Safety measures in place. Bed locked in lowest position. Both side rails up. Call light within pts reach. Will continue to monitor patient.
--- NOTE | 2017-02-07 19:45 | NUR ---
Pt refused blood draw. Explained to patient risk and benefits x3 but still refused. Pt stated he had a blood draw last month and does not want to have his blood drawn this time. Per pt, he is a hard stick. Asked pt if we can do blood draw tomorrow. Per pt, he will see tomorrow if he feels much better. Charge nurse made aware.
[2017-02-07 20:00] VITALS: BP 142/86
[2017-02-07] MEDS: CLONIDINE HCL 0.1 MG TABLET PO PRN (20:10)
[2017-02-07] MEDS: ACETAMINOPHEN 325 MG TABLET PO PRN (20:10)
--- NOTE | 2017-02-07 20:10 | NUR ---
PRN Administration Patient presented with s/sx of sweating, chills, 6/10 generalized body aches, runny nose, stomach cramps, restless legs, anxiety, dilated pupils & tremors felt. COWS 12 noted at this time. PRN Clonidine, Tylenol & Subutex administered as ordered. Safety measures in place. Will continue to monitor patient.
--- NOTE | 2017-02-07 21:10 | NUR ---
PRN Reassessment PRN medication effective. Patient denies sweating, chills, body aches & stomach cramps at this time. Pt still noted with a stuffy nose and anxiety. COWS 4 at this time. Will continue to monitor patient.
[2017-02-07] MEDS: diphenhydrAMINE 50 MG CAPSULE PO PRN (23:28)
[2017-02-08] VITALS: BP 128/76
[2017-02-08 04:00] VITALS: BP 100/55
--- NOTE | 2017-02-08 07:11 | NUR ---
End of Shift Note: Pt is a 31 y/o male admitted yesterday for Opiate dependence. Patient has PMHx of Anxiety & Depression, surgical history of Appendectomy, Jaw surgery & big toe Sx. Patient has history of seizure in 2006 d/t benzo withdrawal. Patient is on a regular diet with no known food and drug allergies. Full Code status. Skin noted to be intact. Patient is to be started on a Subutex taper today. Last COWS is 4 @ 0000. Patient was given PRN Subutex, Clonidine and Tylenol during my shift and were effective. Patient reported that medications were effective in controlling his s/sx of withdrawal. Pt refused blood drawn and was explained to him the risk and benefits but still refused. Per pt, he will see today if he feels much better. Encourage pt to increase fluid intake. Patient remains stable and vitals remains WNL. Pt slept for a total of 5 hours. Pt consumed 1100ml of fluids. Voided 3x with no bowel movements. All needs attended & met. Safety measures in place. Will endorse pt to AM nurse.
[2017-02-08 08:00] VITALS: BP 95/65
--- NOTE | 2017-02-08 08:00 | NUR ---
START OF SHIFT NOTE 31 year old male, admitted to [facility] for heroin substance use detox. History of inpatient detox at [facility] 12/10/16. History of anxiety and depression, appendectomy, jaw surgery, open reduction and internal fixation of large toe fracture. Received report from night RN. COWS 12, give Subutex, next COWS 5. Slept 5 hrs. PRN Clonidine and Tylenol given. On 0800 patient rounds, patient sleeping but awakened to verbal, oriented. Bed in low position and locked, side rails x 2, call ng within reach. Will continue to monitor.
[2017-02-08] MEDS ORDERED: TUBERCULIN,PURIF.PROT.DERIV. 5 TU/0.1 ML TEST ID ONE (09:00)
[2017-02-08] MEDS: GABAPENTIN 600 MG PO SCH ×4 (09:31→20:39)
[2017-02-08] MEDS: BUPRENORPHINE HCL 2 MG TAB.SUBL SL SCH ×3 (09:31→20:39)
[2017-02-08] MEDS: ESCITALOPRAM OXALATE 10 MG TABLET PO SCH (11:15)
[2017-02-08] MEDS: buPROPion XL 150 MG TAB.SR.24H PO SCH (11:15)
[2017-02-08] MEDS: busPIRone 10 MG TABLET PO SCH ×2 (11:15→17:01)
[2017-02-08] MEDS ORDERED: LORAZEPAM 1 MG TABLET PO PRN (11:30)
[2017-02-08] MEDS ORDERED: LORAZEPAM 2 MG/1 ML VIAL IM PRN (11:30)
[2017-02-08] MEDS ORDERED: LORAZEPAM 1 MG TABLET PO ONE ×2 (12:00→21:00)
[2017-02-08 12:30] VITALS: BP 122/74
--- NOTE | 2017-02-08 15:06 | NUR ---
Client was prompted to attend daily group sessions, and client stated that he would not be attending at this time due to not feeling well.
[2017-02-08 17:00] VITALS: BP 119/71
[2017-02-08] MEDS: LORAZEPAM 1 MG TABLET PO PRN ×2 (17:39→20:39)
--- NOTE | 2017-02-08 17:39 | NUR ---
PRN ATIVAN CIWA 9, given Ativan 1 mg po per order. Will Reassess.
[2017-02-08 17:48] LABS: BASOPHILS % (AUTO) 0.5 % (0.0-2.0); EOSINOPHILS # (AUTO) 0.2 K/uL (0.0-0.7); EOSINOPHILS % (AUTO) 2.4 % (0.0-7.0); HEMATOCRIT 48.2 % (40-50); HEMOGLOBIN 16.1 G/DL (14.0-18.0); LYMPHOCYTES # (AUTO) 3.1 K/UL (0.8-4.8); LYMPHOCYTES % (AUTO) 34.1 % (20.5-51.5); MEAN CORPUSCULAR HEMOGLOBIN 30.2 UUG (27.0-31.0); MEAN CORPUSCULAR HGB CONC 33 g/dL (32.0-37.0); MEAN CORPUSCULAR VOLUME 90.4 FL (82.0-92.0); MONOCYTES # (AUTO) 0.6 K/UL (0.1-1.30); MONOCYTES % (AUTO) 6.4 % (0.0-11.0); NEUTROPHILS # (AUTO) 5.2 K/UL (1.8-8.9); NEUTROPHILS % (AUTO) 56.6 % (38.5-71.5); PLATELET COUNT (AUTO) 233 K/UL (150-450); RED BLOOD CELL COUNT(AUTO) 5.33 MIL/UL (4.7-6.1); WHITE BLOOD COUNT (AUTO) 9.1 K/UL (4.0-11.2)
[2017-02-08 17:50] LABS: ALANINE AMINOTRANSFERASE 21 U/L (16-63); ALKALINE PHOSPHATASE 59 U/L (50-136); ASPARTATE AMINOTRANSFERASE 18 U/L (15-37); BILIRUBIN,TOTAL 0.4 mg/dL (0.2-1.0); CARBON DIOXIDE 31 mmol/L (21-32); CHLORIDE 103 mmol/L (98-107); CREATININE 1.1 mg/dL (0.6-1.3); GLUCOSE 131 mg/dL (74-106); MAGNESIUM 1.7 mg/dL (1.8-2.4); TOTAL PROTEIN, SERUM 7.1 g/dL (6.4-8.2); UREA NITROGEN, BLOOD 9 mg/dL (7-18)
[2017-02-08 17:51] LABS: ETHANOL < 3 MG/DL (0-0)
--- NOTE | 2017-02-08 18:39 | NUR ---
PRN ATIVAN REASSESSMENT CIWA decreased to 7 after Ativan 1 mg po one hour prior.
--- NOTE | 2017-02-08 18:54 | NUR ---
END OF SHIFT NOTE 31 year old male, admitted to [facility] for heroin substance use detox. History of inpatient detox at [facility] 12/10/16. History of anxiety and depression, appendectomy, jaw surgery, open reduction and internal fixation of large toe fracture. Received report from night RN. COWS 12, give Subutex, next COWS 5. Slept 5 hrs. PRN Clonidine and Tylenol given. One time Ativan dose given per MD order at 1200. CIWAs q 4 hour ordered. CIWA 4 at 1200. CIWA 9 at 1700. Given Ativan 1 mg PRN at 1739. Tolerating Subutex taper with COWS 5 at 0800; 4 at 1200; and 6 at 1600. Oral intake of 2238 ml, eating 25 percent of breakfast and then 100 to 75 percent of lunch and dinner. At 1800, Mg 1.7, Dr. Nicole notified. Report given to night RN. Bed in low position and locked, side rails x 2, call ng within reach.
--- NOTE | 2017-02-08 19:15 | NUR ---
Start of Shift Note: Patient is a 31 y/o male admitted today 02/07/17 for Opiate & Benzo dependence. Patient has PMHx of Anxiety & Depression, surgical history of Appendectomy, Jaw surgery & big toe Sx. Patient has history of seizure in 2005 d/t benzo withdrawal. Patient reported using Heroin intravenously 1.5 to 2 grams daily for 2 weeks. Patient just reported to MD that he drinks 5-6 glasses of beer daily for 2 weeks. Patient has started on a Subutex taper and tolerating well. PRN Ativan is available for s/sx ETOH of withdrawal. Patient is on a regular diet with no known food and drug allergies. Full Code status. Skin noted to be intact. Last COWS is 6 & CIWA 7. Patient was given PRN Ativan 1mg during day shift and was effective. Patient is alert & oriented x4. No shortness of breath noted. Respiration even & unlabored. Abdomen soft & non-distended. No nausea noted. Patient presented with complains of sweating, chills, 4/10 generalized body aches, mild headache, stuffy nose, stomach cramps, anxiety & restless legs. Patients pupils are dilated. Bilateral hand tremors noted. Patient denies any hallucinations. Safety measures in place. Bed locked in lowest position. Both side rails up. Call light within pts reach. Will continue to monitor patient.
[2017-02-08 20:00] VITALS: BP 132/75
[2017-02-08] MEDS: IBUPROFEN 600 MG TABLET PO PRN (20:39)
[2017-02-08] MEDS: HYDROXYZINE PAMOATE 25 MG CAPSULE PO PRN (20:39)
--- NOTE | 2017-02-08 20:39 | NUR ---
PRN Administration Patient presented with s/s of moderate anxiety, mild agitation, sweating, 4/10 headache and noted with bilateral hand tremors. PRN Ativan, Motrin & Vistaril administered as ordered. Will monitor for effectiveness of medication.
[2017-02-08] MEDS ORDERED: MAGNESIUM OXIDE 400 MG TABLET PO ONE (21:00)
--- NOTE | 2017-02-08 21:00 | NUR ---
Pt was seen by Dr. Nicole with new orders noted. Administered a one time order for Ativan 2mg PO for s/s of withdrawal and for a CIWA 14 noted at this time. Pt also given a Mag-Ox 800 mg PO for a Mg level of 1.7. Orders noted and carried out. Will monitor for effectiveness of medication. Addendum: 02/09/17 at 0101 by PEYTON AMIN RN notified that pt already received a PRN Ativan 1mg for s/s of withdrawal @ 2038. Pt noted with new orders.
[2017-02-08] MEDS ORDERED: LORAZEPAM 1 MG TABLET ONE (21:36)
[2017-02-08] MEDS ORDERED: MAGNESIUM OXIDE 400 MG TABLET ONE (21:37)
[2017-02-09] VITALS: BP 131/84
[2017-02-09] MEDS: diphenhydrAMINE 50 MG CAPSULE PO PRN (00:27)
[2017-02-09] MEDS: CLONIDINE HCL 0.1 MG TABLET PO PRN (00:33)
--- NOTE | 2017-02-09 00:33 | NUR ---
PRN Clonidine and Benadryl Patient could not sleep d/t complaints of anxiety and slight sweating. PRN Clonidine & Benadryl administered as ordered. Will continue to monitor patient.
--- NOTE | 2017-02-09 01:33 | NUR ---
PRN Reassessment Patient asleep in bed and appears comfortable. No s/s of distress noted. Respiration even & unlabored. Safety measures in place. Will continue to monitor patient.
[2017-02-09 04:00] VITALS: BP 119/74
--- NOTE | 2017-02-09 07:09 | NUR ---
End of Shift Note: Pt is a 31 y/o male admitted yesterday for Opiate dependence. Patient has PMHx of Anxiety & Depression, surgical history of Appendectomy, Jaw surgery & big toe Sx. Patient has history of seizure in 2005 d/t benzo withdrawal. Patient is on a regular diet with no known food and drug allergies. Full Code status. Skin noted to be intact. Patient is on a Subutex taper and tolerating well. Pt is to be started on a Ativan taper today at 0900 for ETOH withdrawals. Last COWS is 8 CIWA 6 @ 0000. Patient received PRN Ativan 1mg, Motrin, Vistaril, Clonidine & Benadryl. Patient also received a one time dose of Ativan 2mg and Mag Ox 800mg during my shift and were effective. Patient reported that medications were effective in controlling his s/sx of withdrawal. Patient remains stable and vitals remains WNL. Pt slept for a total of 5 hours. Pt consumed 3000 ml of fluids. Voided 3x with no bowel movements. All needs attended & met. Safety measures in place. Will endorse pt to AM nurse.
[2017-02-09 08:01] VITALS: BP 115/61
--- NOTE | 2017-02-09 08:01 | NUR ---
START OF SHIFT: RECEIVED PT A/O X 4. HE PRESENTS WITH BLUNTED AFFECT AND DEPRESSED MOOD.HE REPORTS SWEATS,CHILLS, BODY ACHES, ANXIETY,STUFFY NOSE AND RESTLESSNESS. COWS 10 CIWA 4. HE STARTED ATIVAN TAPER TODAY AND REMAINS ON SUBUTEX TAPER. HE STATES HE SLEPT RESTLESS AND FEELS FATIGUED.ENCOURAGED INCREASED FLUIDS AND REST. WILL CONTINUE TO MONITOR AND OFFER SUPPORT.
[2017-02-09] MEDS ORDERED: BUPRENORPHINE HCL 2 MG TAB.SUBL SL SCH (09:00)
[2017-02-09] MEDS: ESCITALOPRAM OXALATE 10 MG TABLET PO SCH (09:20)
[2017-02-09] MEDS: GABAPENTIN 600 MG PO SCH ×4 (09:21→20:03)
[2017-02-09] MEDS: buPROPion XL 150 MG TAB.SR.24H PO SCH (09:22)
[2017-02-09] MEDS: busPIRone 10 MG TABLET PO SCH ×2 (09:22→16:49)
[2017-02-09] MEDS: LORAZEPAM 1 MG TABLET PO SCH ×3 (09:23→20:03)
[2017-02-09 12:00] VITALS: BP_SYST 123; BP_SYST 130; BP_DIAS 76; BP_DIAS 79
--- NOTE | 2017-02-09 12:23 | NUR ---
Therapist prompted client to attend group today and meet other people. Client agreed to attend
[2017-02-09] MEDS: BUPRENORPHINE HCL 2 MG TAB.SUBL SL SCH ×2 (13:57→20:03)
[2017-02-09] MEDS: BACLOFEN 10 MG TABLET PO SCH ×2 (13:57→20:02)
[2017-02-09 16:00] VITALS: BP 124/89
--- NOTE | 2017-02-09 18:42 | NUR ---
END OF SHIFT: ATIVAN SUBUTEX TAPER IN PROGRESS TO MANAGE S/S OF W/D. LAST COWS 8 CIWA 5. HE ISOLATED IN HIS ROOM MOST OF SHIFT BUT DID ATTEND GROUPS. HE IS WITHDRAWN AND GUARDED. HE DENIES S/I AND H/I. OFFERED SUPPORT. HE IS COMPLIANT WITH INCREASED FLUIDS. NO PRNS GIVEN THIS SHIFT PT STATES THE DETOX MEDS ARE EFFECTIVE. WILL PASS SHIFT REPORT TO ONCOMING NIGHT NURSE.
--- NOTE | 2017-02-09 19:15 | NUR ---
Start of Shift Note: Patient is a 31 y/o male admitted today 02/07/17 for Opiate & Benzo dependence. Patient has PMHx of Anxiety & Depression, surgical history of Appendectomy, Jaw surgery & big toe Sx. Patient has history of seizure in 2005 d/t benzo withdrawal. Patient reported using Heroin intravenously 1.5 to 2 grams daily for 2 weeks. Patient just reported to MD that he drinks 5-6 glasses of beer daily for 2 weeks. Patient is on a Subutex and Ativan taper and tolerating well. Last COWS is 8 & CIWA 5. Pt did not receive any PRN medication during day shift. Patient is on a regular diet with no known food and drug allergies. Full Code status. Skin noted to be intact. Patient is alert & oriented x4. No shortness of breath noted. Respiration even & unlabored. Abdomen soft & non-distended. No nausea noted. Patient presented with complains of sweating, chills, 5/10 generalized body aches, mild headache, stuffy nose, severe stomach cramps, anxiety & restless legs. Bilateral hand tremors noted. Patient denies any hallucinations. Safety measures in place. Bed locked in lowest position. Both side rails up. Call light within pts reach. Will continue to monitor patient.
[2017-02-09] MEDS: IBUPROFEN 600 MG TABLET PO PRN (19:23)
[2017-02-09] MEDS: DICYCLOMINE HCL 20 MG TABLET PO PRN (19:24)
--- NOTE | 2017-02-09 19:24 | NUR ---
PRN Bentyl & Motrin Patient observed crying and moaning in bed d/t severe abdominal cramping. Patient is very restless in bed. PRN Bentyl and Motrin PO administered as ordered. Will monitor after an hour for effectiveness of medication.
[2017-02-09 20:00] VITALS: BP 111/74
[2017-02-09] MEDS: CLONIDINE HCL 0.1 MG TABLET PO SCH (20:03)
--- NOTE | 2017-02-09 20:24 | NUR ---
PRN Reassessment Patient still complaining of abdominal pain. Patient appears restless and observed with frequent shifting and moving in bed. Pt stated "It did not help at all and i'm still in pain". Subutex given along with scheduled medication at 2003pm. Will continue to monitor patient.
[2017-02-09] MEDS: MIRALAX 17 GM POWD.PACK PO PRN (21:07)
[2017-02-09] MEDS ORDERED: PROMETHAZINE HCL 25 MG/1 ML VIAL IM ONE (22:00)
[2017-02-09] MEDS ORDERED: BUPRENORPHINE HCL 2 MG TAB.SUBL SL ONE (22:00)
[2017-02-09] MEDS ORDERED: DICYCLOMINE HCL 20 MG/2 ML AMPUL IM ONE (22:00)
--- NOTE | 2017-02-09 22:00 | NUR ---
Pt still complaining of 8.5/10 abdominal pain. MD notified. Pt was seen by MD with new orders noted. KUB done as ordered. Awaiting for result.
--- NOTE | 2017-02-09 22:10 | NUR ---
IV insertion Inserted 22 gauge periperal IV line on his left hand with good blood return. Insertion succesful after one attempt. Flushes easily with no complaints of discomfort. Tegaderm applied. Will start 0.9 % NS at 125 cc/hr as ordered. Addendum: 02/10/17 at 0116 by PEYTON AMIN RN Patient is placed on NPO as ordered. Pt was notified and verbalized understanding.
[2017-02-09] MEDS: IV NS 1000 ML 1,000 ML IV PRN (22:19)
[2017-02-09] MEDS ORDERED: PROMETHAZINE HCL 25 MG/1 ML VIAL ONE (23:11)
[2017-02-09] MEDS: ACETAMINOPHEN 325 MG TABLET PO PRN (23:19)
--- NOTE | 2017-02-09 23:19 | NUR ---
One time dose of Phenergan 25mg IM & Subutex 2mg SL administered at this time for complaints of 8/10 abdominal pain. Patient still noted to be restless in bed and noted with facial grimacing d/t pain. Safety measures in place. Will continue to monitor patient.
[2017-02-09] MEDS ORDERED: PANTOPRAZOLE SODIUM 40 MG VIAL IV ONE (23:30)
--- NOTE | 2017-02-09 23:33 | NUR ---
MD aware of pt's condition and ordered Protonix 40mg IV for abdominal pain. Orders noted and carried out. Will continue to monitor patient.
[2017-02-09] MEDS ORDERED: PANTOPRAZOLE SODIUM 40 MG VIAL ONE (23:43)
[2017-02-10] VITALS: BP 119/79
[2017-02-10] MEDS ORDERED: LORAZEPAM 2 MG/1 ML VIAL IV ONE (00:30)
[2017-02-10] MEDS ORDERED: DICYCLOMINE HCL 20 MG TABLET PO ONE (00:30)
--- NOTE | 2017-02-10 00:33 | NUR ---
Pt still complaining of 8/10 abdominal pain. Patient is getting agitated and anxious d/t the pain. Patient stated "I would walk out and leave and go to the emergency room to get Morphine if the pain would not go away". MD was notified and ordered a one time dose of Ativan 2mg IV and Bentyl 20mg PO. Administered medication as ordered. Pt receiving continuous IV fluids @ 125cc/hr. Will continue to monitor patient.
[2017-02-10] MEDS ORDERED: DICYCLOMINE HCL 20 MG TABLET ONE (00:39)
[2017-02-10] MEDS ORDERED: LORAZEPAM 2 MG/1 ML VIAL ONE (00:40)
[2017-02-10] MEDS: diphenhydrAMINE 50 MG CAPSULE PO PRN ×2 (01:27→21:07)
--- NOTE | 2017-02-10 01:27 | NUR ---
Pt presented with complaints of restlessness, anxiety, sweating, chills, 5/10 stomach cramps, generalized body aches & stuffy nose. COWS 9 noted. MD placed new order for a one time Subutex 2mg. Administered Subutex 2mg SL as ordered. Will continue to monitor patient.
[2017-02-10] MEDS ORDERED: BUPRENORPHINE HCL 2 MG TAB.SUBL SL ONE ×2 (01:30→01:36)
--- NOTE | 2017-02-10 02:30 | NUR ---
Pt verbalized slight relief from stomach cramps. Patient still anxious and noted with agitation. Patient noted with episode of confusion. Patient is alert to name, place and orientation. Pt unable to recall date. Reorient patient as needed. Addendum: 02/10/17 at 0553 by PEYTON AMIN RN ERROR: Disgregard the word orientation.
--- NOTE | 2017-02-10 03:00 | NUR ---
Pt accidentally pulled out IV line on left hand. Pressure dressing applied to site. Attempted to reinsert IV but was unsuccessful. Pt refused for IV to be reinserted d/t multiple attempts. Will attempt to reinsert in AM. Will endorse to AM shift nurse.
[2017-02-10 04:00] VITALS: BP 128/74
[2017-02-10] MEDS: PANTOPRAZOLE SODIUM 40 MG TABLET.DR PO SCH (07:12)
--- NOTE | 2017-02-10 07:19 | NUR ---
End of Shift Note: Patient continues on his Subutex and Ativan taper and tolerating well. New orders were placed last night d/t pt's complaints of severe abdominal pain. A KUB procedure was done @ 2200 last night. Pt was placed on NPO and IV fluids were initiated. Pt had a 22gauge peripheral IV on left hand but was pulled out accidentally by patient. Patient received one time orders of Bentyl 20mg PO, Ativan 2mg IV, Protonix 40mg IV, Phenergan 25mg IM & Subutex 2mg 2x during my shift. Pt's vitals remains WNL. Last COWS 8 CIWA 10 @ 0400. KUB result still pending and lab works still need to be drawn d/t pt's refusal for a lab draw. Pt still asleep at this time with no s/s of distress. Patient appears comfortable with no facial grimacing noted. Pt was able to sleep for a total of 2 hours. Pt had 3 voids with no bowel movement noted. All needs attended & met. Safety measures in place. Will endorse pt to day shift nurse.
--- NOTE | 2017-02-10 07:30 | NUR ---
Start of Shift Report from the night nurse: Pt is a 31 y/o male here for Opiates dependence r/t Heroin 1.5-2 grams daily and Etoh r/t 6 beers daily; 4 day Ativan and 5 day Subutex ordered. Pt is a full code, NKA, regular diet, fall and seizure precautions ordered. HHx: relapsed, seizures r/t benzo w/ds, appendectomy, anxiety, depression and bowel obstruction. V/S stalbe and skin is intact. PRN Protonix, Bentyl, Ativan and Phenergan given last night. Pt pulled out IV access and refused labs last night. Pt is asleep in bed. Will cont. to monitor the pt. Addendum: 02/10/17 at 1845 by FLORENTIN MAGDALENO RN [facility] Attila BENAVIDEZ
[2017-02-10 08:00] VITALS: BP 95/57
--- NOTE | 2017-02-10 10:30 | NUR ---
Labs Refused, PRN Medication Administration Pt is in room asleep at 0730am and pharmacovigilance specialist attempted to draw the blood once and the pt refused to wake up for it. Conveyor Man attempted to draw blood again at 1030am for it again and the pt refused it again and was very agitated angry. I notified Dr. Nicole. Pt c/o of no BM for 2 days, stomach cramps 4/10 discomfort and a STERN; PRN Miralax, Bentyl 20mg and Tylenol 650mg given as ordered. Will reassess in 1H.
[2017-02-10] MEDS: DICYCLOMINE HCL 20 MG TABLET PO PRN (10:51)
[2017-02-10] MEDS: MIRALAX 17 GM POWD.PACK PO PRN (10:51)
[2017-02-10] MEDS: ESCITALOPRAM OXALATE 10 MG TABLET PO SCH (10:51)
[2017-02-10] MEDS: buPROPion XL 150 MG TAB.SR.24H PO SCH (10:51)
[2017-02-10] MEDS: ACETAMINOPHEN 325 MG TABLET PO PRN ×2 (10:51→16:44)
[2017-02-10] MEDS: busPIRone 10 MG TABLET PO SCH ×2 (10:52→16:43)
[2017-02-10] MEDS: BACLOFEN 10 MG TABLET PO SCH (10:52)
[2017-02-10] MEDS: BUPRENORPHINE HCL 2 MG TAB.SUBL SL SCH ×3 (10:52→20:57)
[2017-02-10] MEDS: GABAPENTIN 600 MG PO SCH ×4 (10:53→21:05)
[2017-02-10] MEDS: LORAZEPAM 1 MG TABLET PO SCH ×3 (10:54→20:56)
[2017-02-10] MEDS: CLONIDINE HCL 0.1 MG TABLET PO SCH ×2 (11:01→20:56)
[2017-02-10 11:06] LABS: HEPATITIS B SURFACE AG Negative (Negative)
[2017-02-10 12:00] VITALS: BP 100/57
--- NOTE | 2017-02-10 12:00 | NUR ---
Reassessment Pt is in room asleep; no non-verbal s/sx of STERN, or ab cramps noted; Bentyl and Tylenol are effective. Will cont. to monitor the pt.
--- NOTE | 2017-02-10 14:00 | NUR ---
Medication Non-Administration Pt is asleep in room since 12:45pm and missed gabapentin due at 1300pm. Will cont. to monitor the pt.
--- NOTE | 2017-02-10 14:45 | NUR ---
PRN Medication Administration Pt c/o STERN; PRN Tylenol 650mg given as ordered. Will reassess in 1H.
--- NOTE | 2017-02-10 15:45 | NUR ---
Reassessment Pt is in room eating dinner and denies STERN; Tylenol is effective. Will cont. to monitor the pt.
[2017-02-10 16:00] VITALS: BP 117/78
[2017-02-10] MEDS: DICYCLOMINE HCL 20 MG TABLET PO SCH ×2 (16:43→20:57)
[2017-02-10] MEDS: BACLOFEN 20 MG TABLET PO SCH ×2 (16:43→20:56)
--- NOTE | 2017-02-10 18:25 | NUR ---
Reassessment Pt denies STERN and states the stomach cramps are still present; PRN Tylenol is effective but the Bentyl is ineffective. Will cont. to monitor the pt. Addendum: 02/10/17 at 1829 by FLORENTIN MAGDALENO RN Duplicate and Wrong Time for reassessment
--- NOTE | 2017-02-10 19:14 | NUR ---
End of Shift Report from the night nurse: Pt is a 31 y/o male here for Opiates dependence r/t Heroin 1.5-2 grams daily and Etoh r/t 6 beers daily; 4 day Ativan and 5 day Subutex ordered. Pt is a full code, NKA, regular diet, fall and seizure precautions ordered. HHx: relapsed, seizures r/t benzo w/d's, appendectomy, anxiety, depression and bowel obstruction. V/S stable and skin is intact. Missed dose of gabapentin since he slept through it. pt refused to have blood drawn and IV accesses restarted and Dr. Nicole aware. PRN Miralax, Bentyl, Tylenol. Last COWS 7 CIWA 7
--- NOTE | 2017-02-10 19:14 | NUR ---
START OF SHIFT NOTE: Patient is a 31 year old male admitted to [facility] on 02/09/2017 for Alcohol and Opioid dependency. Patient continue 4 day Ativan and 5 day Subutex Taper. Patient tolerated well without ASE. Patient remains compliant with treatment plan, medications, and diet regime. Patient reports NKA, is on Regular Diet, is on Full Code, is on Fall and Seizures precautions. Patient reports PMH: Anxiety, Depression, History of Heroin and Xanax Abuse, History of Bowel Obstruction, History of seizure" r/benzodiazepines withdrawal in 2005". Patient report past surgical history: Appendectomy, Jaw surgery, Big Toe Fracture "with fixation with screw". Upon endorsement, patient is in his room alert and oriented x4 with stable gait, speech is soft and clear. COWS 6, CIWA 5. Patient presented anxious agitated, nervousness, stomach cramps, restlessness, and sweating. VSWNL. Respirations is even and unlabored. Patient denies SOB and chest pain. Lung Sounds clear bilaterally. Abdomen is soft, non-tender. Skin is warm and dry. Patient has healed closed scabs on chest. Encouraged fluids intake as tolerated. Encouraged to attend groups activities. All needs met. Safety measures on place: Call light within reach, bed is locked, and lowest position, padded rails up bilaterally. Patient endorsed by outgoing day shift nurse. Report received. Will continue to monitor closely.
[2017-02-10 20:00] VITALS: BP 117/78
--- NOTE | 2017-02-10 21:07 | NUR ---
PRN BENADRYL 50 MG 1 CAP PO ADMINISTRATION Patient c/o insomnia. PRN Benadryl 50 mg 1 capsule PO administrated with full glass of water as ordered. Patient tolerated well. All needs met. Safety measures on place. Call light within reach, bed in lowest position and locked, padded rails up bilaterally rails up bilaterally. Will continue to monitor closely.
--- NOTE | 2017-02-10 22:07 | NUR ---
RE-ASSESSMENT Patient is sleeping. Respirations even and unlabored. RR 16. PRN Benadryl 50 mg 1 cap PO administrated @2106 for insomnia was effective. All needs met. Safety measures on place. Call light within reach, bed in lowest position and locked, padded rails up bilaterally rails up bilaterally. Will continue to monitor closely.
[2017-02-11] VITALS: BP 125/80
--- NOTE | 2017-02-11 04:00 | NUR ---
VS REFUSED AND COWS/CIWA DEFERRED Patient refused to be woken up for 0400 VS. COWS/CIWA deferred d/t patient sleeping to assess while patient is awake. Safety measures on place by hospital policy: Call light within reach; Bed in lowest position and locked; side rails up x2. Will continue to monitor.
[2017-02-11] MEDS: PANTOPRAZOLE SODIUM 40 MG TABLET.DR PO SCH (06:05)
--- NOTE | 2017-02-11 07:06 | NUR ---
END OF SHIFT NOTE: Patient is a 31 year old male admitted to [facility] on 02/09/2017 for Alcohol and Opioid dependency. Patient continue 4 day Ativan and 5 day Subutex Taper. Patient tolerated well without ASE. Patient remains compliant with treatment plan, medications, and diet regime. Patient reports NKA, is on Regular Diet, is on Full Code, is on Fall and Seizures precautions. Patient reports PMH: Anxiety, Depression, History of Heroin and Xanax Abuse, History of Bowel Obstruction, History of seizure" r/benzodiazepines withdrawal in 2005". Past Surgical History: Appendectomy, Jaw surgery, Big Toe Fracture "with fixation with screw". Last COWS 6, CIWA 4 @0000. COWS/CIWA taken when patient's alert during the night. Last VS @0000: T: 97.9; BP: 125/80; HR:83; RR:17; RA O2 SAT: 96%. Pain level: "0/10". Patient denies SI/HI. Respirations unlabored and even. Abdomen is soft and non-tender. Skin is intact, warm and dry to touch. PRN Benadryl 50 mg 1 tab PO administrated for insomnia @2107 was effective. Patient slept 8 hours, intake 1,728 ml, voided x3. Encouraged fluids as tolerated. Encouraged to attend groups activities. All needs met. Safety measures on place. Call light within reach, bed in lowest position and locked, padded rails up bilaterally. Patient endorsed to day shift nurse.
--- NOTE | 2017-02-11 07:30 | NUR ---
Start of Shift Report from the night nurse with update: Pt is a 31 y/o male here for Opiates dependence r/t Heroin 1.5-2 grams daily and Etoh r/t 6 beers daily; 4 day Ativan and 5 day Subutex ordered. Pt is a full code, NKA, regular diet, fall and seizure precautions ordered. HHx: relapsed, seizures r/t benzo w/d's, appendectomy, anxiety, depression and bowel obstruction. V/S stable and skin is intact. No PRN's given last night. Pt is in room asleep. Last COWS 6 CIWA 4 Will cont. to monitor the pt.
[2017-02-11 08:00] VITALS: BP 105/62
--- NOTE | 2017-02-11 08:00 | NUR ---
MD Communication Pt refused Lab blood draw; notified Dr. Nicole, ZELDA and DON. Will cont. to monitor the pt.
[2017-02-11] MEDS ORDERED: BUPRENORPHINE HCL 2 MG TAB.SUBL SL SCH (09:00)
[2017-02-11] MEDS ORDERED: LORAZEPAM 1 MG TABLET PO SCH (09:00)
[2017-02-11] MEDS: BUPRENORPHINE HCL 2 MG TAB.SUBL SL SCH ×2 (09:23→20:16)
[2017-02-11] MEDS: BACLOFEN 20 MG TABLET PO SCH ×3 (09:24→20:18)
[2017-02-11] MEDS: busPIRone 10 MG TABLET PO SCH ×2 (09:24→15:26)
[2017-02-11] MEDS: DICYCLOMINE HCL 20 MG TABLET PO SCH ×3 (09:24→20:15)
[2017-02-11] MEDS: ESCITALOPRAM OXALATE 10 MG TABLET PO SCH (09:24)
[2017-02-11] MEDS: DOCUSATE SODIUM 250 MG CAPSULE PO SCH (09:24)
[2017-02-11] MEDS: CLONIDINE HCL 0.1 MG TABLET PO SCH ×3 (09:24→20:17)
[2017-02-11] MEDS: buPROPion XL 150 MG TAB.SR.24H PO SCH (09:25)
[2017-02-11] MEDS: GABAPENTIN 600 MG PO SCH ×4 (09:25→20:18)
[2017-02-11 12:00] VITALS: BP 102/69
[2017-02-11] MEDS: MIRALAX 17 GM POWD.PACK PO PRN (13:36)
[2017-02-11] MEDS: CLONIDINE HCL 0.1 MG TABLET PO PRN (13:38)
--- NOTE | 2017-02-11 13:40 | NUR ---
PRN Medication Administration Pt is in room and c/o no BM for more than 4 days and c/o a stye on the left posterior eye lid; PRN Miralax and encouraged high fiber diet and to increase fluid intake to 3-4 bottles daily. I notified Dr. Nicole re: the left eye and constipation and I was directed to apply a warm compress to the left eye no new orders at this time. Will cont. to monitor the pt. Addendum: 02/11/17 at 1559 by FLORENTIN MAGDALENO RN Pt is anxious in his room with hand tremors observed, V/S stable, PRN Clonidine given as ordered.
--- NOTE | 2017-02-11 13:42 | NUR ---
Start of Shift Report from the night nurse with update: Pt is a 31 y/o male here for Opiates dependence r/t Heroin 1.5-2 grams daily and Etoh r/t 6 beers daily; 4 day Ativan and 5 day Subutex ordered. Pt is a full code, NKA, regular diet, fall and seizure precautions ordered. HHx: relapsed, seizures r/t benzo w/d's, appendectomy, anxiety, depression and bowel obstruction. V/S stable and skin is intact. No PRN's given last night. Pt is in room asleep. Last COWS 6 CIWA 4 Will cont. to monitor the pt. Addendum: 02/11/17 at 1355 by FLORENTIN MAGDALENO RN Error
--- NOTE | 2017-02-11 14:38 | NUR ---
therapist prompted client to attend group today. Client agreed to attend today's group.
--- NOTE | 2017-02-11 14:45 | NUR ---
Reassessment Pt is getting ready to go smoke before group therapy and is less anxious; Clonidine is effective and no BM at this time. Will cont. to monitor the pt.
[2017-02-11] MEDS: LORAZEPAM 1 MG TABLET PO SCH ×2 (15:25→20:15)
[2017-02-11 16:00] VITALS: BP 114/68
[2017-02-11] MEDS: IBUPROFEN 600 MG TABLET PO PRN (18:43)
--- NOTE | 2017-02-11 18:43 | NUR ---
PRN Medication Administration Pt c/o ab pain 12/06; PRN Motrin 600mg given as ordered. Will endorse to night nurse to reassess the condition in 1 Hour.
--- NOTE | 2017-02-11 19:18 | NUR ---
START OF SHIFT NOTE: Patient is a 31 year old male admitted to [facility] on 02/09/2017 for Alcohol and Opioid dependency. Patient continue 4 day Ativan and 5 day Subutex Taper. Patient tolerated well without ASE. Patient remains compliant with treatment plan, medications, and diet regime. Patient reports NKA, Regular Diet, is on Full Code, is on Fall and Seizures precautions. Patient reports PMH: Anxiety, Depression, History of Heroin and Xanax Abuse, History of Bowel Obstruction, History of seizure" r/benzodiazepines withdrawal in 2005". Patient report past surgical history: Appendectomy, Jaw surgery, Big Toe Fracture "with fixation with screw". Upon endorsement, patient is in his room alert and oriented x4 with stable gait, speech is soft and clear. COWS 6, CIWA 5. Patient presented anxious agitated, nervousness, stomach cramps, restlessness, and sweating. VSWNL. Respirations is even and unlabored. Patient denies SOB and chest pain. Lung Sounds clear bilaterally. Skin is intact, warm and moist. Abdomen is NOT soft, tender, painful in all quadrants by palpation. Bowel Sounds presenting only in LLQ. Patient c/o constipation. Patient reports last BM on "02/06/2017. Abdominal pain level "9/10". Charge nurse aware for patient condition. Encouraged fluids intake as tolerated. Encouraged to attend groups activities. All needs met. Safety measures on place: Call light within reach, bed is locked, and lowest position, padded rails up bilaterally. Patient endorsed by outgoing day shift nurse. Report received. Will continue to monitor closely.
--- NOTE | 2017-02-11 19:18 | NUR ---
End of Shift Report from the night nurse: Pt is a 31 y/o male here for Opiates dependence r/t Heroin 1.5-2 grams daily and Etoh r/t 6 beers daily; 4 day Ativan and 5 day Subutex ordered. Pt is a full code, NKA, regular diet, fall and seizure precautions ordered. HHx: relapsed, seizures r/t benzo w/d's, appendectomy, anxiety, depression and bowel obstruction. V/S stable. Skin is intact except left eye has cyst with swelling and discomfort so notified Dr. Nicole with directions to apply a warm compress and NNO's noted. Pt refused to have blood drawn again, Dr. Nicole aware I spoke with his mother today and notified her of his non-compliance with blood draw. PRN Miralax, Clonidine and Motrin for ab pain. Last COWS 5 CIWA 3
--- NOTE | 2017-02-11 19:43 | NUR ---
RE-ASSESSMENT Patient lying down on his left side and c/o constipation and abdominal pain "8/10". Patient VS WNL. Patient Motrin was non-effective. PRN Milk of Magnesium discussed with patient. Patient was educated for action, side effects, and adverse reactions for ordered PRN Milk of Magnesium. Patient returned back his knowledge by verbalized understanding. Encouraged fluids intake as tolerated. All needs met. Safety measures on place: Call light within reach, bed is locked, and lowest position, padded rails up bilaterally. Patient endorsed by outgoing day shift nurse. Report received. Will continue to monitor closely.
--- NOTE | 2017-02-11 19:48 | NUR ---
PRN MILK OF MAGNESIUM 30 ML PO ADMINISTRATED ORDERED WITH FULL GLASS OF WATER. CHARGE NURSE AWARE.
[2017-02-11 20:00] VITALS: BP 102/63
--- NOTE | 2017-02-11 20:22 | NUR ---
PRN ZOFRAN ODT 4 MG 1 TAB.RAPDIS SL ADMINISTRATION Patient c/o nausea. PRN Zofran Odt 4mg 1 tab. RAPDIS SL for nausea administrated as ordered. All needs met. Safety measures on place: Call light within reach, bed is locked, and lowest position, padded rails up bilaterally. Will continue to monitor closely.
[2017-02-11] MEDS ORDERED: MIRALAX 17 GM POWD.PACK PO ONE (20:45)
[2017-02-11] MEDS ORDERED: PROMETHAZINE HCL 25 MG/1 ML VIAL IM ONE (20:45)
[2017-02-11] MEDS ORDERED: HYDROXYZINE PAMOATE 25 MG CAPSULE PO ONE (20:45)
[2017-02-11] MEDS ORDERED: DICYCLOMINE HCL 20 MG TABLET PO ONE (20:45)
--- NOTE | 2017-02-11 20:48 | NUR ---
RE-ASSESSMENT No Boel Movement. Patient c/o abdominal pain:"01/06". PRN Milk of Magnesium was non-effective. All needs met. Safety measures on place: Call light within reach, bed is locked, and lowest position, padded rails up bilaterally. Will continue to monitor closely. Addendum: 02/12/17 at 0411 by SHANIA NAVAS RN Bowel Movement
--- NOTE | 2017-02-11 20:51 | NUR ---
PRN MAALOX SUSPENSION 30 ML PO ADMINISTRATION Patient c/o heartburn and abdominal pain. PRN Maalox Suspension 30 ml PO for heartburn administrated as ordered Patient tolerated well. All needs met. Safety measures on place: Call light within reach, bed is locked, and lowest position, padded rails up bilaterally. Will continue to monitor closely.
--- NOTE | 2017-02-11 21:22 | NUR ---
RN notes one-time medications Pt c/o abdominal pain=9/10, with sweats observed. Vital signs stable. Abdomen c/o pain upon palpation and with hypo bowel sounds. Dr. Nicole notified and he ordered one-time order of the following: Bentyl 20 mg PO, Miralax 17 gm powder, Phenergan 25 mg IM and Vistaril 50 mg PO. Administered by primary nurse.
--- NOTE | 2017-02-11 21:22 | NUR ---
RE-ASSESSMENT Patient denies nausea and vomiting at this time. PRN Zofran Odt 4mg 1 tab. RAPDIS SL for nausea was effective. All needs met. Safety measures on place: Call light within reach, bed is locked, and lowest position, padded rails up bilaterally. Will continue to monitor closely
--- NOTE | 2017-02-11 21:30 | NUR ---
RN note Labs ordered Labs were ordered by Dr. Nicole: BMP, CBC, Lactic Acid, Liver Function Test and Magnesium. Lactic Acid is 2.[address] Nicole. IV Bolus ordered. Addendum: 02/12/17 at 0103 by LORNA GRAVES RN IV Bolus of NS 1000 ml administered.
[2017-02-11 21:31] LABS: BASOPHILS % (AUTO) 0.5 % (0.0-2.0); EOSINOPHILS # (AUTO) 0.3 K/uL (0.0-0.7); EOSINOPHILS % (AUTO) 3.4 % (0.0-7.0); HEMATOCRIT 45.1 % (40-50); HEMOGLOBIN 15.4 G/DL (14.0-18.0); LYMPHOCYTES # (AUTO) 2.5 K/UL (0.8-4.8); MEAN CORPUSCULAR HEMOGLOBIN 30.4 UUG (27.0-31.0); MEAN CORPUSCULAR HGB CONC 34 g/dL (32.0-37.0); MEAN CORPUSCULAR VOLUME 88.8 FL (82.0-92.0); MONOCYTES # (AUTO) 0.7 K/UL (0.1-1.30); MONOCYTES % (AUTO) 8.4 % (0.0-11.0); NEUTROPHILS # (AUTO) 5.3 K/UL (1.8-8.9); NEUTROPHILS % (AUTO) 58.7 % (38.5-71.5); PLATELET COUNT (AUTO) 203 K/UL (150-450); RED BLOOD CELL COUNT(AUTO) 5.08 MIL/UL (4.7-6.1); WHITE BLOOD COUNT (AUTO) 8.8 K/UL (4.0-11.2)
--- NOTE | 2017-02-11 21:35 | NUR ---
RN note KUB KUB ordered and done. Result relayed to Dr. Nicole.
[2017-02-11 21:48] LABS: POTASSIUM 4.2 mmol/L (3.5-5.1)
--- NOTE | 2017-02-11 21:51 | NUR ---
RE-ASSESSMENT Patient reports "No heartburn". PRN Maalox Suspension was effective. All needs met. Safety measures on place: Call light within reach, bed is locked, and lowest position, padded rails up bilaterally. Will continue to monitor closely.
[2017-02-11 21:54] LABS: BILIRUBIN,DIRECT 0.1 mg/dL (0.0-0.2); BILIRUBIN,TOTAL 0.3 mg/dL (0.2-1.0); TOTAL PROTEIN, SERUM 6.8 g/dL (6.4-8.2)
[2017-02-11] MEDS ORDERED: IV NS 1000 ML 1,000 ML IV ONE (22:15)
--- NOTE | 2017-02-11 22:22 | NUR ---
RE-ASSESSMENT Patient c/o abdominal pain:"01/06". One-time ordered Bentyl 20 mg PO, Miralax 17 gm powder, Phenergan 25 mg IM and Vistaril 50 mg PO administrated @2121 was non-effective.
[2017-02-11] MEDS ORDERED: DIATR MEGLU/DIATRIZOATE SODIUM 30 ML SOLUTION ONE (23:10)
--- NOTE | 2017-02-11 23:10 | NUR ---
RN note CT Scan Dr. Nicole ordered CT Scan of the Abdomen and Pelvis with both oral and IV contrast. Consent signed and new account opened for [facility]. Patient given Gastrograffin. IV inserted on the right upper arm #20, patent and intact.
--- NOTE | 2017-02-11 23:15 | NUR ---
IV START IV started by ER Nurse with 20 G on upper right arm. IV site intact, patent, no swollen. Patient tolerated well. All needs met. Safety measures on place: Call light within reach, bed is locked, and lowest position, padded rails up bilaterally. Will continue to monitor closely.
[2017-02-12] VITALS: BP 117/72
[2017-02-12] MEDS: IV NS 1000 ML 1,000 ML IV PRN ×2 (00:23→07:43)
--- NOTE | 2017-02-12 01:06 | NUR ---
RN note Lactic Acid Lactic Acid=2.3. Result relayed to Dr. Nicole, with no new orders. Pt brought to Radiology at this time for CT Scan of the abdomen and pelvis with oral and IV contrast. Consent signed.
--- NOTE | 2017-02-12 01:38 | NUR ---
RN note CT Scan Patient brought to Radiology via wheelchair for CT of the abdomen and pelvis with oral and IV contrast.
[2017-02-12] MEDS ORDERED: KETOROLAC TROMETHAMINE 30 MG INJ IM ONE (02:00)
--- NOTE | 2017-02-12 02:00 | NUR ---
MARQUITA TORADOL INJ 30 MG 1 ML ADMINISTRATED FOR ABDOMINAL PAIN "02/05". Addendum: 02/12/17 at 0353 by SHANIA NAVAS RN PRN TORADOL 30 MG/1 ML IM ADMINISTRATION
--- NOTE | 2017-02-12 02:15 | NUR ---
RN note back from CT Scan Pt back to the unit from Radiology for CT Scan of Abdomen and Pelvis with oral and IV contrast. Pt is stable. No SOB noted.
--- NOTE | 2017-02-12 03:00 | NUR ---
RE-ASSESSMENT Patient is sleeping. Respirations even and unlabored. RR:16. PRN Toradol was effective. All needs met. Safety measures on place. Call light within reach, bed in lowest position and locked, padded rails up bilaterally rails up bilaterally. Will continue to monitor closely.
[2017-02-12 04:00] VITALS: BP 88/56
--- NOTE | 2017-02-12 04:00 | NUR ---
COWS/CIWA DEFERRED COWS/CIWA deferred d/t patient sleeping to assess while patient is awake. Safety measures on place: Call light within reach; Bed in lowest position and locked; padded side rails up x2. Will continue to monitor.
[2017-02-12] MEDS: PANTOPRAZOLE SODIUM 40 MG TABLET.DR PO SCH (06:43)
--- NOTE | 2017-02-12 07:12 | NUR ---
END OF SHIFT NOTE: Patient is a 31 year old male admitted to [facility] on 02/09/2017 for Alcohol and Opioid dependency. Patient continue 4 day Ativan and 5 day Subutex Taper. Patient tolerated well without ASE. Patient remains compliant with treatment plan, medications, and diet regime. Patient reports NKA, is on Regular Diet, is on Full Code, is on Fall and Seizures precautions. Last COWS 9, CIWA 8 @0000. COWS/CIWA taken when patient's alert during the night. Last VS @0400: T: 97.6; BP: 88/56; HR:68; RR:12; RA O2 SAT: 94%. Pain level: "0/10". Patient denies SI/HI. Respirations unlabored and even. Abdomen is painful, bloated and tender by palpation.. No Bowel Sounds noted by auscultation. X-Ray and CT Scan done for r/o bowel obstruction. Results received with large stool retained in the colon. Doctor MD Bonnie aware. Ordered enema for 0800 and surgical consult for this morning. Skin is intact, warm and moist to touch. PRN Milk of Magnesium 30 ml PO administrated for constipation @1947 was non-effective. PRN Maalox Suspension administrated for heartburn @ 2050 was effective. PRN Zofran Odt 4mg 1 tab. RAPDIS SL administrated for nausea @2121 was effective. One-time ordered Bentyl 20 mg PO, Miralax 17 gm powder, Phenergan 25 mg IM and Vistaril 50 mg PO administrated @2121 was non-effective. PRN Toradol Inj. 30 mg 1 ml IM administrated for abdominal pain "10" @0200 was effective. Patient slept 8 hours, intake 1,810 ml, voided x2. Encouraged fluids as tolerated. Encouraged to attend groups activities. All needs met. Safety measures on place. Call light within reach, bed in lowest position and locked, padded rails up bilaterally. Patient endorsed to day shift nurse. Report given.
[2017-02-12 07:42] LABS: BILIRUBIN,DIRECT 0.1 mg/dL (0.0-0.2); BILIRUBIN,TOTAL 0.3 mg/dL (0.2-1.0); CREATININE 0.9 mg/dL (0.6-1.3); MAGNESIUM 2.2 mg/dL (1.8-2.4); PHOSPHOROUS 4.9 mg/dL (2.5-4.9); POTASSIUM 4.5 mmol/L (3.5-5.1); TOTAL PROTEIN, SERUM 5.8 g/dL (6.4-8.2)
--- NOTE | 2017-02-12 07:45 | NUR ---
START OF SHIFT Rcvd endorsement from ongoing nurse, client is in bed, he is a/o x 3, he presents with depressed mood, flat affect, Client with small stye on left lower eyelid, no drainage, noted, sclera clear, he reports no discomfort, and does not want any treatment for it, he stated, It will go away in a few days. Encourage client not to touch or rub eyes to prevent cross contamination and to wash hands frequently, he verbalized understanding. Client reports chills, anxiety and stomach cramps. Client with severe constipation, KUB impression. CT abdomen and pelvis with contrast: Findings, there is no bowel obstruction. Client is NPO except for medications. Client is not compliant with NPO order, he was eating candies, which were removed from his room. Verbal education regarding adherence to NPO, risk and benefits discuss with client, reinforcement needed. Charge nurse notified. Lactic acid 2.3, per charge nurse NS 1000ml IV bolus administered, blood drwan this am, will continue to monitor for lactic acid levels. Peripheral line on R arm, 20G, NS 0.9 % running at prescribed rate, client tolerating well. PRN Motrin 600mg PO, Toradol 30mg IM, Zofran 4mg SL for nausea, MOM 30mL for constipation, Maalox 30mL PO for hearburn, One time dose Bentyl 20 mg PO abdominal cramps, Miralax 17 gm powder PO for constipation, Phenergan 25 mg IM for nausea and Vistaril 50 mg PO for anxiety. Client is a 31 y/o male, admitted to [facility] for withdrawal from Alcohol and heroin. Client is on last of 5 day Ativan, and 6 day Subutex taper, tolerating well. Last CIWA 8/COWS 9 @2400. He denies any hx of of withdrawal-induced seizures, he is on universal precautions. He reports of allergy to cat dander, he is full code.. Side rails x 2 up/padded. Call light within reach.
[2017-02-12 07:59] LABS: BASOPHILS % (AUTO) 0.3 % (0.0-2.0); EOSINOPHILS # (AUTO) 0.2 K/uL (0.0-0.7); EOSINOPHILS % (AUTO) 3.6 % (0.0-7.0); HEMATOCRIT 41.5 % (36.7-47.1); HEMOGLOBIN 14.4 g/dL (12.5-16.3); LYMPHOCYTES # (AUTO) 2.5 K/uL (20.0-40.0); LYMPHOCYTES % (AUTO) 36.4 % (20.5-51.5); MEAN CORPUSCULAR HEMOGLOBIN 30.8 uug (23.8-33.4); MEAN CORPUSCULAR HGB CONC 35 g/dL (32.5-36.3); MEAN CORPUSCULAR VOLUME 89.2 fL (73.0-96.2); MONOCYTES # (AUTO) 0.7 K/uL (2.0-10.0); MONOCYTES % (AUTO) 9.6 % (0.0-11.0); NEUTROPHILS # (AUTO) 3.5 K/uL (1.8-8.9); NEUTROPHILS % (AUTO) 50.1 % (38.5-71.5); PLATELET COUNT (AUTO) 174 K/uL (152-348); RED BLOOD CELL COUNT(AUTO) 4.66 MIL/uL (4.06-5.63); WHITE BLOOD COUNT (AUTO) 6.9 K/uL (3.6-10.2)
[2017-02-12 08:00] VITALS: BP 105/55
[2017-02-12] MEDS ORDERED: FLEET ENEMA 133 ML BOTTLE RC ONE (08:00)
[2017-02-12] MEDS: ESCITALOPRAM OXALATE 10 MG TABLET PO SCH (08:51)
[2017-02-12] MEDS: BACLOFEN 20 MG TABLET PO SCH ×3 (08:52→20:45)
[2017-02-12] MEDS: DOCUSATE SODIUM 250 MG CAPSULE PO SCH (08:52)
[2017-02-12] MEDS: buPROPion XL 150 MG TAB.SR.24H PO SCH (08:53)
[2017-02-12] MEDS: CLONIDINE HCL 0.1 MG TABLET PO SCH ×3 (08:53→20:51)
[2017-02-12] MEDS: DICYCLOMINE HCL 20 MG TABLET PO SCH ×3 (08:54→20:45)
[2017-02-12] MEDS: busPIRone 10 MG TABLET PO SCH ×2 (08:54→16:54)
[2017-02-12] MEDS ORDERED: BUPRENORPHINE HCL 2 MG TAB.SUBL SL SCH (09:00)
[2017-02-12] MEDS ORDERED: LORAZEPAM 1 MG TABLET PO SCH (09:00)
--- NOTE | 2017-02-12 09:00 | NUR ---
Nursing noted Client is on NPO, due to severe constipation. Client is non-adherent to medical care plan, he continue to go into the kitchen and grab candy bars, primary nurse removed from his room. Charge nurse and MD notified.
[2017-02-12] MEDS: GABAPENTIN 600 MG PO SCH ×4 (09:05→20:45)
--- NOTE | 2017-02-12 09:46 | NUR ---
One time Fleets enema 133mL RC, client tolerated well. Call light within reach. Will continue to monitor.
--- NOTE | 2017-02-12 10:00 | NUR ---
Nursing noted Client in non-adherent to NPO order, he has in his room several chocolate candy bars and other candies, Primary nurse encourage him to comply with NPO order and educate on the risk and benefits of complying with plan of care. Reinforcement needed, client lacks motivation.
--- NOTE | 2017-02-12 10:40 | NUR ---
Nursing noted Client is on 1:1 sitter d/t non-adherence to NPO order. Client made aware and verbalized understanding.
--- NOTE | 2017-02-12 10:46 | NUR ---
Reassessment One time Fleets enema 133mL RC, client reports a small, hard stool. Call light within reach. Will continue to monitor.
[2017-02-12 12:00] VITALS: BP 110/71
[2017-02-12] MEDS ORDERED: BISACODYL 10 MG SUPP.RECT RC ONE (12:00)
[2017-02-12] MEDS ORDERED: MAGNESIUM CITRATE 296 ML BOTTLE PO ONE (12:00)
--- NOTE | 2017-02-12 12:51 | NUR ---
One time Dulcolax 10mg RC, One time Citrate of Magnesium 296mL PO for constipation, client tolerated well. Sitter at bedside. Call light within reach.
[2017-02-12] MEDS ORDERED: DOCU250C14 PO (13:47)
[2017-02-12] MEDS ORDERED: DIPH50CA37 PO (13:47)
[2017-02-12] MEDS ORDERED: DICY20TA28 PO (13:47)
[2017-02-12] MEDS ORDERED: CLON0.1T14 PO (13:47)
[2017-02-12] MEDS ORDERED: HYDR-3895 PO (13:47)
[2017-02-12] MEDS ORDERED: PANT40TA2 PO (13:47)
[2017-02-12] MEDS ORDERED: BACL20TA PO (13:47)
[2017-02-12] MEDS ORDERED: ESCI10TA PO (13:47)
[2017-02-12] MEDS ORDERED: GABA600T2 PO (13:47)
[2017-02-12] MEDS ORDERED: IBUP-1955 PO (13:47)
--- NOTE | 2017-02-12 13:51 | NUR ---
Reassessment One time Dulcolax 10mg RC, One time Citrate of Magnesium 296mL PO client reports no BM yet.
[2017-02-12] MEDS ORDERED: PSYL3.4P6 PO (13:56)
[2017-02-12] MEDS ORDERED: MINERAL OIL FLEET ENEMA 133 ML BOTTLE RC PRN (14:30)
[2017-02-12] MEDS: PSYLLIUM SEED PACKET PO SCH (15:01)
--- NOTE | 2017-02-12 15:01 | NUR ---
Metamucil 1 pkt PO administered pre DrShaggy's order. for constipation, client's abdomen soft, non-distended, quadrants x 4 hypoactive. 1:1 sitter at bedside. Call light within reach.
--- NOTE | 2017-02-12 16:01 | NUR ---
Reassessment Metamucil 1 pkt PO effective, MB X-large BM soft/brown.
--- NOTE | 2017-02-12 16:05 | NUR ---
MD Notification Dr. Nicole discontinued 1:1 sitter for non-adherence to NPO diet. Client is on regular diet, NPO order discontinued. Charge nurse notified.
[2017-02-12 16:55] VITALS: BP 105/69
--- NOTE | 2017-02-12 19:30 | NUR ---
START OF SHIFT Pt is a 31 y/o male admitted on 02/07/17 for ETOH and opiate dependence. Pt was dependent on 1.5-2 grams of heroin IV daily and 5-6 glasses of beer daily for the past two weeks at this rate. Pt is full code, NKA, regular diet, and seizure/fall precautions. Pt has seizure hx from benzo w/d in 2005. Pt reports PMH of anxiety, depression, and bowel obstruction. Pt was on a 6 day Subutex and 5 day Ativan taper, tolerated well. Pt is scheduled to be discharged tomorrow. Upon assessment pt is sleeping. Upon awakening, pt presents with anxiety and aches 3/10 in bilateral legs r/t withdrawal. Pt had hx of constipation today with bowel obstruction ruled out from CT scan of abdomen/pelvis as of 02/12/17. Pt was administered fleet enema, dulcolax, citrate of magnesium and metamucil with stool x 2 during day shift. Pt denies any abdominal pain upon assessment. Abdomen soft, nontender. Denies N/V/D. Respirations 16, even and unlabored. Denies chest pain or SOB. Medications due. Safety measures in place. Call light within reach. Will continue to monitor.
--- NOTE | 2017-02-12 19:35 | NUR ---
END OF SHIFT Endorsed client to incoming nurse, client is a 31 y/o male, admitted to [facility] for withdrawal from Alcohol and heroin. Client completed 5 day Ativan, and 6 day Subutex taper, tolerated well. Last CIWA 3 /COWS 3 @ 1600. Warm compress to left lower eyelid stye three times a day for 10 minutes. One time Fleets enema 133mL RC. One time Dulcolax 10mg RC, One time Citrate of Magnesium 296mL PO for constipation. Metamucil 1 pkt PO administered for constipation, noted effective, stool X-large soft/brown. Peripheral IV removed per Dr. De Leon order. He denies any hx of of withdrawal-induced seizures, he is on universal precautions. He reports NKA, is regular diet, he is full code.. Side rails x 2 up/padded. Call light within reach.
[2017-02-12 20:00] VITALS: BP 109/56
[2017-02-12] MEDS: METHOCARBAMOL 750 MG TABLET PO PRN (20:45)
--- NOTE | 2017-02-12 20:45 | NUR ---
PRN ROBAXIN ADMINISTRATION Pt reports pain/aches in bilateral legs 07/06. Safety measures in place. Call light within reach.
--- NOTE | 2017-02-12 21:00 | NUR ---
SCHEDULED CLONIDINE HELD BP 109/56, orders to hold if BP < 100/[address] Call light within reach. Will continue to monitor.
--- NOTE | 2017-02-12 21:45 | NUR ---
MARQUITA HIGGINS REASSESSMENT Pt reports 0/10 aches in legs. Safety measures in place. Call light within reach. Will continue to monitor.
[2017-02-12] MEDS: ACETAMINOPHEN 325 MG TABLET PO PRN (23:13)
--- NOTE | 2017-02-12 23:13 | NUR ---
PRN TYLENOL ADMINISTRATION Pt reports feeling febrile with mild body aches (not r/t withdrawal per pt) 4/10 on pain scale. Temperature 98.1. Safety measures in place. Call light within reach. Will continue to monitor.
--- NOTE | 2017-02-13 | NUR ---
PRN TYLENOL REASSESSMENT, PRN BENADRYL ADMINISTRATION, VITALS REFUSED Pt reports pain 0/10. Pt requests sleep aid. Vitals refused. Respirations 16, even and unlabored. Safety measures in place. Call light within reach. Will continue to monitor.
[2017-02-13] MEDS: diphenhydrAMINE 50 MG CAPSULE PO PRN (00:06)
--- NOTE | 2017-02-13 01:06 | NUR ---
PRN BENADRYL REASSESSMENT Pt is laying in bed with eyes closed. Respirations 18 even and unlabored. Safety measures in place. Call light within reach. Will continue to monitor.
--- NOTE | 2017-02-13 04:00 | NUR ---
VITALS REFUSED AND COW/CIWA DEFERRED Pt is laying in bed with eyes closed. Pt refused vitals. COW/CIWA deferred, to be assessed when pt is fully awake per order. Respirations 18, even and unlabored. Safety measures in place. Call light within reach. Will continue to monitor.
[2017-02-13] MEDS: PANTOPRAZOLE SODIUM 40 MG TABLET.DR PO SCH (06:53)
--- NOTE | 2017-02-13 07:17 | NUR ---
END OF SHIFT Pt is a 31 y/o male admitted on 02/07/17 for ETOH and opiate dependence. Pt was dependent on 1.5-2 grams of heroin IV daily and 5-6 glasses of beer daily for the past two weeks at this rate. Pt is full code, NKA, regular diet, and seizure/fall precautions. Pt has seizure hx from benzo w/d in 2005. Pt reports PMH of anxiety, depression, and bowel obstruction. Pt was on a 6 day Subutex and 5 day Ativan taper, tolerated well. Pt is scheduled to be discharged today. Pt presented with anxiety and aches 07/06 in bilateral legs r/t withdrawal. Pt had hx of constipation, bowel obstruction ruled out from CT scan of abdomen/pelvis as of 02/12/17. Pt denies any abdominal pain upon assessment. Abdomen soft, nontender. Pt has a stye on lower left lid, warm compresses ordered for 3-4 times daily. Denies pain at site. Scheduled medications and PRN Robaxin, Tylenol, and Benadryl administered, effective in S/S of withdrawal AEB COW 2 CIWA 1 lowered to COW 1 CIWA 1. Scheduled Clonidine held d/t BP 109/56. Pt slept 6 hours. Intake 1100 ml, voids x 3, stool x 2. Safety measures in place. Call light within reach. Pts needs have been met. Endorsed to day shift nurse.
[2017-02-13 08:00] VITALS: BP 100/60
--- NOTE | 2017-02-13 08:00 | NUR ---
START OF SHIFT: RECEIVED PT A/O X 4. HE PRESENTS WITH BLUNTED AFFECT AND DEPRESSED MOOD. HE DENIES S/I AND H/I. MEDICATED ORDERED. TAPERS COMPLETED. HE STATES HE HAS SOME MILD BODY ACHES AND SOME ANXIETY ABOUT SCHEDULED DISCHARGE THIS AM.PT STATES HE WILL BE DOING IPO AND LIVING IN [facility]. OFFERED SUPPORT. WILL CONTINUE WITH DISCHARGE PLANNING.
[2017-02-13] MEDS: GABAPENTIN 600 MG PO SCH (08:57)
[2017-02-13] MEDS: ESCITALOPRAM OXALATE 10 MG TABLET PO SCH (08:58)
[2017-02-13] MEDS: BACLOFEN 20 MG TABLET PO SCH (08:59)
[2017-02-13] MEDS: busPIRone 10 MG TABLET PO SCH (08:59)
[2017-02-13] MEDS: DICYCLOMINE HCL 20 MG TABLET PO SCH (08:59)
[2017-02-13] MEDS: buPROPion XL 150 MG TAB.SR.24H PO SCH (09:00)
[2017-02-13] MEDS: DOCUSATE SODIUM 250 MG CAPSULE PO SCH (09:00)
[2017-02-13] MEDS: CLONIDINE HCL 0.1 MG TABLET PO SCH (09:00)
[2017-02-13] MEDS: PSYLLIUM SEED PACKET PO SCH (09:01)
--- NOTE | 2017-02-13 09:30 | NUR ---
DISCHARGE: PT IS A/O X4. HE DENIES S/I AND H/I. HE STATES HE IS MOTIVATED TO STAY CLEAN AND FEELS ENTHUSIASTIC. BELONGINGS RETURNED. EDUCATED PT ON DISCHARGE INSTRUCTIONS AND MEDICATIONS. CIRCULAR SAW OPERATOR ESCORTED PT TO [facility] WHERE HE WAS TRANSPORTED BY [facility] TO [facility].
== END 2017-02-13 09:22 | disposition home or self-care (01) | DRG 895 ==
LOC: SRC 12:25
PROVIDERS: ADMIT Internal Medicine; ATTEND Internal Medicine
PROC: HZ2ZZZZ Detoxification Services for Substance Abuse Treatment (ICD-10-PCS; principal; 2017-02-07)
PROC: HZ41ZZZ Group Counseling for Substance Abuse Treatment, Behavioral (ICD-10-PCS; 2017-02-11)
DX: F11.23 Opioid dependence with withdrawal (principal); F33.2 Major depressive disorder, recurrent severe without psychotic features; E87.2 Acidosis; I15.9 Secondary hypertension, unspecified; E83.42 Hypomagnesemia; E83.51 Hypocalcemia; E88.09 Other disorders of plasma-protein metabolism, not elsewhere classified; Z79.899 Other long term (current) drug therapy; Z81.1 Family history of alcohol abuse and dependence; Z81.8 Family history of other mental and behavioral disorders; F41.9 Anxiety disorder, unspecified; R74.0 Nonspecific elevation of levels of transaminase and lactic acid dehydrogenase [LDH]; K56.41 Fecal impaction; F17.210 Nicotine dependence, cigarettes, uncomplicated; F10.230 Alcohol dependence with withdrawal, uncomplicated; Y90.0 Blood alcohol level of less than 20 mg/100 ml; F13.21 Sedative, hypnotic or anxiolytic dependence, in remission; Z90.49 Acquired absence of other specified parts of digestive tract; Z91.89 Other specified personal risk factors, not elsewhere classified
CPT/HCPCS: 36415; 70030-TC; 74000; 80307; 80361; 83605; 83735; 84100; 85025; 86580; 86592; 86705; 86803; 87340; 87806; A4663; C9113; G0480; J1885; J2060; J2550; J7030; Q0162; Q0163; Q9963

== ENCOUNTER 2017-02-11 22:34 | Outpatient (CLI) | payer BC ==
[~2017-02-11 22:34] MED LIST changes: +BUPR-51 PO; -ESCI10TA PO; +GABA600T2 PO
[2017-02-12] MEDS ORDERED: IOHEXOL 300MG/ML 100 ML INFUS..BTL ONE (01:24)
[2017-02-12] MEDS ORDERED: IV NORMAL SALINE 250 ML IV ONE (01:24)
[2017-02-12] MEDS ORDERED: HYDR-3895 PO (13:47)
[2017-02-12] MEDS ORDERED: CLON0.1T14 PO (13:47)
[2017-02-12] MEDS ORDERED: ESCI10TA PO (13:47)
[2017-02-12] MEDS ORDERED: GABA600T2 PO (13:47)
[2017-02-12] MEDS ORDERED: PANT40TA2 PO (13:47)
[2017-02-12] MEDS ORDERED: DICY20TA28 PO (13:47)
[2017-02-12] MEDS ORDERED: IBUP-1955 PO (13:47)
[2017-02-12] MEDS ORDERED: DOCU250C14 PO (13:47)
[2017-02-12] MEDS ORDERED: BACL20TA PO (13:47)
[2017-02-12] MEDS ORDERED: DIPH50CA37 PO (13:47)
[2017-02-12] MEDS ORDERED: PSYL3.4P6 PO (13:56)
== END 2017-02-11 23:59 | disposition home or self-care (01) ==
LOC: CT 22:34
PROVIDERS: ATTEND Internal Medicine
DX: R19.5 Other fecal abnormalities (principal); J98.11 Atelectasis
CPT/HCPCS: J7050; Q9967

== ENCOUNTER 2017-03-05 16:46 | Inpatient (IN) | payer BC, OTHER ==
[~2017-03-05] VITALS: Ht 182.9 cm; Wt 83.9 kg
[~2017-03-05 16:46] MED LIST changes: +BACL20TA PO; +CLON0.1T14 PO; +DOCU250C14 PO; +ESCI10TA PO; -GABA-534 PO; -IBUP-1953 PO; +IBUP-1955 PO; -METH-406 PO; +PANT40TA2 PO; +PSYL3.4P6 PO
[2017-03-05 17:00] VITALS: BP 126/81
--- NOTE | 2017-03-05 17:00 | NUR ---
Pre-admission Note: Client is seen in intake at this time. Appears anxious, mild sweats noted. Alert and verbally responsive. Oriented x 4. Speech coherent with good eye contact. Appears restless with shifting body movement. VS: 126/81, Pulse 106, RR 18, O2 sat 95% RA, Temp 98.6. PL 6/10. Patient reports that he is voluntariyl here to get off heroin, xanax and ETOH. Last use was 03/04/2017 at 1500. Educated patient on the admission process and was able to verbalize good understanding of all teachings. Denies any allergies. Follows a regular diet. Wishes to be FULL CODE. Denies seizure history. Verbalizes complains of chills, hot flashes, sweats, tremors, body aches. Patient states "I feel crappy." Reassurance provided and will continue with the admission process when patient arrives on the unit. COWS 12/CIWA 7.
--- NOTE | 2017-03-05 17:05 | NUR ---
Admission Note: Admitted a 31 year old male under the care of Dr. Kedar Nicole for BZO/opiate and ETOH dependence. He is alert and oriented x 4. No changes in LOC noted. Verbally responsive. Able to make needs known. Appears anxious with pressured speech. Respirations even and unlabored. No SOB noted. Skin warm and moist to touch with noted sweats to his hands and his face. Tremors noted with hands stretched. Body search done. No contraband was found. Skin check done. No skin breakdown noted. Noted with s/p laceration to patient's right middle finger. Area is intact at this time. Bowel sounds (+) in all 4 quadrants. No complains of N/V/D or constipation noted. Bladder soft and non-distended. Able to provide urine for UDS. No complains of dysuria. Voids independently. Ambulatory ad keeley with steady gait. He reports NKA. Wishes to be FULL CODE. Follows a regular diet at home. He denies having a PCP at this time. He denies any seizure history. Reports past medical hx of anxiety, depression, appendectomy, jaw surgery, and ORIF to left toe due to a fracture. He reports having family history of substance abuse however refuses to talk about it. Substance Use Hx: 1. Heroin - Inject 1 gram to 1.5 grams daily x 7 days. Last use was on 03/04/2017 at 1500 - 1 gram. 2. Xanax - Orally takes 10 mg PO daily x 7 days. Last use was on 03/04/2017 at 1500 - 14 mg. 3. ETOH (Vodka) - Drinks 750cc daily x 7 days. Last use was on 03/04/2017 at 1500 - 500cc. Treatment History: 1. [facility] x 7 days 12/10/2016 to 12/16/2016 2. [facility] - 12/16/16 x 45 days 3. [facility] x 7 days 02/07/2018 to 02/13/2017 4. [facility]. 5. [facility] x 30 days. Orientation to the unit provided to the patient. Instructed use of call light and unit's policy and protocol. Patient verbalized good understanding. Dr. Nicole made aware of patient's arrival in the unit and will enter in admission orders.
[2017-03-05] MEDS ORDERED: MIRALAX 17 GM POWD.PACK PO PRN (17:15)
[2017-03-05] MEDS ORDERED: BUPRENORPHINE HCL 2 MG TAB.SUBL SL PRN (17:15)
[2017-03-05] MEDS ORDERED: MAG HYDROX/AL HYDROX/SIMETH 30 ML LIQUID UDC PO PRN (17:15)
[2017-03-05] MEDS ORDERED: IBUPROFEN 600 MG TABLET PO PRN (17:15)
[2017-03-05] MEDS ORDERED: ONDANSETRON 4 MG/2 ML VIAL IM PRN (17:15)
[2017-03-05] MEDS ORDERED: LORAZEPAM 1 MG TABLET PO PRN ×2 (17:15)
[2017-03-05] MEDS ORDERED: diphenhydrAMINE 50 MG CAPSULE PO PRN (17:15)
[2017-03-05] MEDS ORDERED: LOPERAMIDE HCL 2 MG CAPSULE PO PRN ×2 (17:15)
[2017-03-05] MEDS ORDERED: LORAZEPAM 2 MG/1 ML VIAL IM PRN (17:15)
[2017-03-05] MEDS: METHOCARBAMOL 750 MG TABLET PO PRN (17:41)
--- NOTE | 2017-03-05 17:41 | NUR ---
Subutex 4 mg SL/Ativan 1 mg PO/Robaxin 750 mg PO given: COWS 12/CIWA 7, patient presented with chills, hot flashes, restlessness, myalgia, sweats. Medicated patient with Subutex 4 mg SL per COWS score, Ativan 1 mg PO per CIWA score and Robaxin 750 mg PO for generalized body aches /10. Will monitor for effectiveness.
[2017-03-05 18:01] LABS: *AMPHETAMINE, URINE NEGATIVE (NEGATIVE); *BARBITURATE, URINE NEGATIVE (NEGATIVE); *CANNABINOID, URINE NEGATIVE (NEGATIVE); *COCCAINE, URINE NEGATIVE (NEGATIVE); *OPIATE, URINE NEGATIVE (NEGATIVE); *PHENCYCLIDINE SCREEN,URINE NEGATIVE (NEGATIVE)
--- NOTE | 2017-03-05 18:37 | NUR ---
Labs: Patient refused blood draw at this time. Educated patient on the risk and benefits but patient still refused. Will continue to encourage patient and notify MD.
--- NOTE | 2017-03-05 18:41 | NUR ---
Re-assessment: Subutex 4 mg SL/Ativan 1 mg PO/Robaxin 750 mg PO Per patient, PL 07/06. PRN Robaxin was effective. COWS 7/CIWA 4. Less sweats, less anxiety, less tremors and less chills. hot flashes noted.
--- NOTE | 2017-03-05 18:57 | NUR ---
End of Shift Notes: Patient admitted today for opiate/BZO/ETOH dependence. Currently not on any taper at this time. Withdrawal symptoms monitored. Initial COWS 12 7- patient presented with anxiety, tremors, sweats, myalgia, chills and hot flashes. Medicated patient with Robaxin 750mg PO, Subutex 4 mg SL and Ativan 1 mg PO at 1741 with help after 1 hour. Participated in group and activities due to his withdrawal symptoms. On fall and seizure precautions. Patient refused lab draw at this time. All needs met and attended. Will continue to monitor closely.
--- NOTE | 2017-03-05 19:15 | NUR ---
START OF SHIFT NOTE : Patient is 31 years old male, admitted on 03/05/2017 for opiate/BZO/ETOH dependence. Currently on PRN medications. . Withdrawal symptoms monitored. On fall and seizure precautions. Patient agreed for lab draw at this time. Dr. Nicole is in the room, talking to the patient. Last CIWA=7, COWS=6 at 19:00. Safety measures in place : bed on lowest position with side rails x2 up for safety, call light within reach. Will continue to monitor closely and offer help.
[2017-03-05 20:00] VITALS: BP 146/72
[2017-03-05 20:00] LABS: BASOPHILS # (AUTO) 0.1 K/uL (0.0-8.0); BASOPHILS % (AUTO) 0.5 % (0.0-2.0); EOSINOPHILS # (AUTO) 0.1 K/uL (0.0-0.7); EOSINOPHILS % (AUTO) 1.4 % (0.0-7.0); HEMATOCRIT 47.7 % (40-50); HEMOGLOBIN 16.3 G/DL (14.0-18.0); LYMPHOCYTES # (AUTO) 2.8 K/UL (0.8-4.8); LYMPHOCYTES % (AUTO) 27.2 % (20.5-51.5); MEAN CORPUSCULAR HEMOGLOBIN 30.2 UUG (27.0-31.0); MEAN CORPUSCULAR HGB CONC 34 g/dL (32.0-37.0); MEAN CORPUSCULAR VOLUME 88.1 FL (82.0-92.0); MONOCYTES # (AUTO) 0.7 K/UL (0.1-1.30); MONOCYTES % (AUTO) 7.2 % (0.0-11.0); NEUTROPHILS # (AUTO) 6.5 K/UL (1.8-8.9); NEUTROPHILS % (AUTO) 63.7 % (38.5-71.5); PLATELET COUNT (AUTO) 305 K/UL (150-450); RED BLOOD CELL COUNT(AUTO) 5.41 MIL/UL (4.7-6.1); WHITE BLOOD COUNT (AUTO) 10.2 K/UL (4.0-11.2)
[2017-03-05 20:13] LABS: ALANINE AMINOTRANSFERASE 27 U/L (16-63); ALKALINE PHOSPHATASE 58 U/L (50-136); ASPARTATE AMINOTRANSFERASE 14 U/L (15-37); BILIRUBIN,TOTAL 0.5 mg/dL (0.2-1.0); CARBON DIOXIDE 29 mmol/L (21-32); CHLORIDE 105 mmol/L (98-107); CREATININE 1.2 mg/dL (0.6-1.3); GLUCOSE 121 mg/dL (74-106); POTASSIUM 3.9 mmol/L (3.5-5.1); TOTAL PROTEIN, SERUM 7.8 g/dL (6.4-8.2); UREA NITROGEN, BLOOD 8 mg/dL (7-18)
[2017-03-05 20:16] LABS: ETHANOL < 3 MG/DL (0-0)
[2017-03-05] MEDS: OXCARBAZEPINE 150 MG TABLET PO SCH (20:32)
[2017-03-05] MEDS: GABAPENTIN 300 MG CAPSULE PO SCH (20:36)
[2017-03-05] MEDS ORDERED: BUPRENORPHINE HCL 2 MG TAB.SUBL SL SCH (21:00)
[2017-03-05] MEDS ORDERED: LORAZEPAM 1 MG TABLET PO SCH (21:00)
[2017-03-05] MEDS ORDERED: GABAPENTIN 300 MG CAPSULE PO SCH (21:00)
[2017-03-06] VITALS: BP 115/71
--- NOTE | 2017-03-06 01:00 | NUR ---
PRN BENADRYL Pt. complains of sleeplessness. PRN BENADRYL GIVEN ORDERED FOR C/O INSOMNIA. Safety measures in place : bed on lowest position with side rails x2 up for safety, call light within reach. Will continue to monitor closely and offer help.
--- NOTE | 2017-03-06 02:00 | NUR ---
RE-ASSESSMENT A[place]A Pt. is sleeping, RR=16, unlabored and even. Safety measures in place : bed on lowest position with side rails x2 up for safety, call light within reach. Will continue to monitor closely and offer help.
[2017-03-06 04:00] VITALS: BP 114/67
--- NOTE | 2017-03-06 06:34 | NUR ---
END OF SHIFT NOTE : Patient is 31 years old male, admitted on 03/05/2017 for opiate/BZO/ETOH dependence. Currently on PRN medications. . Withdrawal symptoms monitored. On fall and seizure precautions. Pt remains compliant with the treatment plan.PRN BENADRYL given during my shift. V/S remain WNL. RR=16, even and unlabored, lungs clear upon auscultation, abdomen soft and non- distended. Pt denies nausea, vomiting and diarrhea. CIWA and COWS taken when pt. was alert during the night, LAST CIWA=4 ,COWS=4 at 0400 , KKPWKP=975 ml, voided x1 , slept 5 hours. Safety measures in place : bed on lowest position with side rails x2 up for safety, call light within reach. Will continue to monitor closely and offer help.
--- NOTE | 2017-03-06 07:45 | NUR ---
START OF SHIFT Rcvd endorsement from ongoing nurse, client is in room, he is a/o x 4, he presents with depressed mood, flat affect, and flushed face. He reports decreased in appetite, abdominal cramps, restless legs, irritability, and fatigue. He denies any N/V/D. He denies any SI/HI. Encourage client to attend to group therapy for skills to maintain sober. Encourage client to increase PO fluid intake as tolerated to facilitate detox. Client is a 31 y/o male, admitted to [facility] for withdrawal from alprazolam and heroin. He is schedule to start 5 day Ativan/ 5 day Subutex taper @ 0900. Last CIWA 4/COWS 4 @ 0400. Client rcvd one time dose Subutex 4mg SL, Ativan 2mg PO, Trileptal 150mg PO, Gabapentin 600mg PO, Benadryl 50mg PO for inability to sleep, he slept 8 hrs. He denies a hx of withdrawal-induced seizures, Client reports NKA , he is full code, regular diet. Side rails x 2 up/padded for seizure precautions. Call light within reach.
--- NOTE | 2017-03-06 07:45 | NUR ---
START OF SHIFT Rcvd endorsement from ongoing nurse, client is in room, he is a/o x 4, he presents with anxious mood, flat affect, and flushed face. He reports decreased in appetite, abdominal cramps, restless legs, irritability, and fatigue.. He denies any N/V/D. He denies any SI/HI. Encourage client to attend to group therapy for skill to maintain sober. Encourage client to increase PO fluid intake as tolerated to facilitate detox. Client is a 54 y/o male, admitted to [facility] for withdrawal from alcohol. He is on last of 5 day Ativan taper, tolerating well (day 3). Last CIWA 3 @ 1999. Client had an uneventful night, he slept 8 hrs. He denies a hx of withdrawal-induced seizures, Client reports allergy to Ibuprofen , he is full code, regular diet. Side rails x 2 up/padded for seizure precautions. Call light within reach. Addendum: 03/06/17 at 1045 by PREET LI RN WRONG CLIENT
[2017-03-06 08:55] VITALS: BP 109/60
[2017-03-06] MEDS ORDERED: TUBERCULIN,PURIF.PROT.DERIV. 5 TU/0.1 ML TEST ID ONE (09:00)
[2017-03-06] MEDS: GABAPENTIN 300 MG CAPSULE PO SCH ×4 (09:06→20:22)
[2017-03-06] MEDS: BUPRENORPHINE HCL 2 MG TAB.SUBL SL SCH ×4 (09:06→20:22)
[2017-03-06] MEDS: OXCARBAZEPINE 150 MG TABLET PO SCH ×2 (09:06→20:22)
[2017-03-06] MEDS: LORAZEPAM 1 MG TABLET PO SCH ×4 (09:06→20:22)
--- NOTE | 2017-03-06 09:10 | NUR ---
TB Test .01mL ID administered to Left forearm, client tolerated well.
--- NOTE | 2017-03-06 10:55 | NUR ---
PRN Ativan 5mg PO administered per CIWA 16, anxiety, irritability, nausea, mild visual disturbances, diaphoresis. Will continue to monitor. Call light within reach. Dr. Nicole notified.
--- NOTE | 2017-03-06 11:55 | NUR ---
Reassessment PRN Ativan 5mg PO per CIWA 9, client appears less anxious, and relief from nausea. Will continue to monitor. Call light within reach.
[2017-03-06 12:22] VITALS: BP 116/79
[2017-03-06 16:15] VITALS: BP 117/77
[2017-03-06] MEDS: buPROPion XL 150 MG TAB.SR.24H PO SCH (16:18)
[2017-03-06] MEDS: ESCITALOPRAM OXALATE 10 MG TABLET PO SCH (16:18)
[2017-03-06] MEDS: busPIRone 10 MG TABLET PO SCH (16:18)
--- NOTE | 2017-03-06 17:30 | NUR ---
Nursing notes Per COSMETOLOGY TEACHER Refurbish Technician, client is on room restrictions due to behavioral issues, client continues knocking at the door of a female client. Client verbalizes understanding of room restriction since he signed a behavioral contract earlier.
--- NOTE | 2017-03-06 19:12 | NUR ---
END OF SHIFT Client is a 31 y/o male, a/o x 4, [facility] withdrawal from alprazolam and heroin. He is on 5 day Ativan/ 5 day Subutex taper, tolerating well. Last CIWA 11 @ 1600. Client continues to present with depressed mood, flat affect, he reports chills, restless legs, decreased in appetite, abdominal cramps, and fatigue. Client did not attend group therapy d/t withdrawal symptoms. Client consumes 25-50% of meals, adequate PO fluid intake 2800mL, void x3. Client is on room restrictions due to behavioral issues per administration, client continues to knock on the door of a female client, he verbalizes understanding. He denies a hx of withdrawal-induced seizures, Client reports NKA, he is full code, regular diet. Side rails x 2 up/padded for seizure precautions. Call light within reach.
--- NOTE | 2017-03-06 19:30 | NUR ---
START OF SHIFT Pt is a 31 y/o male admitted on 03/05/17 for ETOH, Xanax and heroin dependence. Pt was dependent on 1-1.5 gram of heroin, 10 mg of Xanax and 750 ml of vodka daily for the past 7 days. Pt is full code, NKA, regular diet, fall/seizure precautions. Pt reports seizure hx, last in 2005 r/t withdrawal. Pt reports PMH of anxiety and depression. Pt is on a 5 day Ativan and 5 day Subutex taper started on 03/06/17, tolerating well. Pt is on room restriction r/t inappropriate actions with another pt. Upon assessment pt is laying in bed with eyes closed and upon awakening presents with flushed skin, sweats, body aches 5/10, runny nose, teary eyes, intermittent stomach cramps, yawning, malaise, fatigue, moderate anxiety, intermittent irritability, restless legs and photosensitivity. Pt also complains of alvarez and neck pain not related to withdrawal /. Respirations 16, even and unlabored. Denies N/V/D. Denies chest pain or SOB. Medications due. Safety measures in place. Call light within reach. Will continue to monitor.
[2017-03-06 20:00] VITALS: BP 128/73
[2017-03-06] MEDS: METHOCARBAMOL 750 MG TABLET PO PRN (20:22)
[2017-03-06] MEDS: TRAZODONE 100 MG TABLET PO SCH (20:22)
--- NOTE | 2017-03-06 20:22 | NUR ---
PRN ROBAXIN ADMINISTRATION Pt reports body aches 09/05. Safety measures in place. Call light within reach. Will continue to monitor.
--- NOTE | 2017-03-06 21:22 | NUR ---
PRN BILLAXIN REASSESSMENT Pt is laying in bed with eyes closed. Respirations 18, even and unlabored. Safety measures in place. Call light within reach. Will continue to monitor.
[2017-03-07] VITALS: BP 146/67
--- NOTE | 2017-03-07 | NUR ---
COW/CIWA DEFERRED Pt is laying in bed with eyes closed, COW/CIWA deferred, to be assessed when pt is awake per orders. Respirations 16, even and unlabored. Safety measures in place. Call light within reach. Will continue to monitor.
--- NOTE | 2017-03-07 00:38 | NUR ---
ONE TIME MAGNESIUM CITRATE ADMINISTRATION DR. OLVERA MADE AN ORDER FOR MAGNESIUM CITRATE. WILL MONITOR FOR EFFECTIVENESS Addendum: 03/08/17 at 0344 by JHOANA ELIZONDO LVN ERROR CHARTING
[2017-03-07 04:00] VITALS: BP 113/70
[2017-03-07] MEDS: CLONIDINE HCL 0.1 MG TABLET PO PRN (04:52)
--- NOTE | 2017-03-07 04:52 | NUR ---
PRN CLONIDINE ADMINISTRATION Pt presents with anxiety, agitation, chills, sweats, restlessness. BP 113/70 and HR 83. Safety measures in place. Call light within reach. Will continue to monitor.
--- NOTE | 2017-03-07 05:52 | NUR ---
PRN CLONIDINE REASSESSMENT Pt is laying in bed with eyes closed. Respirations 18, even and unlabored. Safety measures in place. Call light within reach. Will continue to monitor.
[2017-03-07 07:06] LABS: HEPATITIS B SURFACE AG Negative (Negative)
--- NOTE | 2017-03-07 07:28 | NUR ---
END OF SHIFT Pt is a 31 y/o male admitted on 03/05/17 for ETOH, Xanax and heroin dependence. Pt was dependent on 1-1.5 gram of heroin, 10 mg of Xanax and 750 ml of vodka daily for the past 7 days. Pt is full code, NKA, regular diet, fall/seizure precautions. Pt reports seizure hx, last in 2005 r/t withdrawal. Pt reports PMH of anxiety and depression. Pt is on a 5 day Ativan and 5 day Subutex taper started on 03/06/17, tolerating well. Pt is on room restriction r/t inappropriate actions with another pt. Pt presented with flushed skin, sweats, body aches 09/05, runny nose, teary eyes, intermittent stomach cramps, yawning, malaise, fatigue, moderate anxiety, intermittent irritability, restless legs and photosensitivity. Pt also complained of alvarez and neck pain not related to withdrawal 05/08. Scheduled medications and PRN Robaxin and Clonidine administered, effective in S/S of withdrawal AEB COW 9 CIWA 11 lowered to COW 8 CIWA 9. Pt slept 8 hours. Intake 1200 ml, void x 2, stool x 0. Safety measures in place. Call light within reach. Pts needs have been met. Endorsed to day shift nurse.
--- NOTE | 2017-03-07 07:45 | NUR ---
START OF SHIFT Rcvd endorsement from ongoing nurse, client is in room, he is a/o x 4, he presents with anxious mood, flat affect, moist, skin, Goosebump, and dilated pupils. He reports chills, cold, abdominal cramps, restless legs, and fatigue. He denies any N/V/D. He denies any SI/HI. Encourage client to attend to group therapy for skills to maintain sober. Encourage client to increase PO fluid intake as tolerated to facilitate detox. Client is a 31 y/o male, admitted to [facility] for withdrawal from alprazolam and heroin. He is on 5 day Ativan/ 5 day Subutex taper, tolerating well. Last CIWA9 /COWS 8 @ 0400. PRN Robaxin 750mg PO for muscle pain, Clonidine 0.1mg PO for anxiety, agitation, chills, sweats, restlessness, noted effective. Client slept 8 hrs. He denies a hx of withdrawal-induced seizures, Client reports NKA , he is full code, regular diet. Side rails x 2 up/padded for seizure precautions. Call light within reach.
[2017-03-07 08:06] VITALS: BP 110/64
[2017-03-07] MEDS: BUPRENORPHINE HCL 2 MG TAB.SUBL SL SCH ×3 (08:39→20:24)
[2017-03-07] MEDS: OXCARBAZEPINE 150 MG TABLET PO SCH (08:39)
[2017-03-07] MEDS: ESCITALOPRAM OXALATE 10 MG TABLET PO SCH (08:39)
[2017-03-07] MEDS: buPROPion XL 150 MG TAB.SR.24H PO SCH (08:39)
[2017-03-07] MEDS: busPIRone 10 MG TABLET PO SCH ×2 (08:39→17:28)
[2017-03-07] MEDS: LORAZEPAM 1 MG TABLET PO SCH ×3 (08:40→20:22)
[2017-03-07] MEDS: GABAPENTIN 300 MG CAPSULE PO SCH ×4 (08:40→20:23)
[2017-03-07] MEDS: DICYCLOMINE HCL 20 MG TABLET PO PRN ×2 (08:53→18:42)
--- NOTE | 2017-03-07 08:53 | NUR ---
PRN Bentyl 20mg PO administered for abdominal spasms. Will continue to monitor. Call light within reach.
--- NOTE | 2017-03-07 09:53 | NUR ---
Reassessment PRN Bentyl 20mg PO effective, client states relief from abdominal spasms.
[2017-03-07] MEDS ORDERED: NICOTINE 14 MG/24HR PATCH TD PRN (10:30)
[2017-03-07] MEDS ORDERED: LORAZEPAM 1 MG TABLET PO ONE (10:45)
[2017-03-07] MEDS: NICOTINE POLACRILEX 4 MG GUM-PK OF TEN BC PRN (11:07)
--- NOTE | 2017-03-07 11:07 | NUR ---
PRN Nicotine gum 4mg for cravings. Will continue to monitor
--- NOTE | 2017-03-07 12:07 | NUR ---
Reassessment PRN Nicotine gum 4mg effective.
[2017-03-07 12:30] VITALS: BP 117/72
[2017-03-07] MEDS ORDERED: OXCARBAZEPINE 150 MG TABLET PO ONE (15:00)
[2017-03-07] MEDS: BACLOFEN 10 MG TABLET PO SCH ×2 (15:14→20:23)
[2017-03-07 16:00] VITALS: BP 110/64
--- NOTE | 2017-03-07 18:42 | NUR ---
PRN Bentyl 20mg PO administered for abdominal spasms. Will continue to monitor. Call light within reach.
--- NOTE | 2017-03-07 19:26 | NUR ---
END OF SHIFT Client is a 31 y/o male, a/o x 4, admitted to [facility] for withdrawal from alprazolam and heroin. He is on 5 day Ativan/ 5 day Subutex taper, tolerating well. Last CIWA 8 / 7 @ 1600. Client continues to present with depressed mood, flat affect, he reports chills, restless legs, decreased in appetite, abdominal cramps, and fatigue. PRN Bentyl 20mg x 2, endorsed to incoming nurse to reassess. Client did not attend group therapy d/t withdrawal symptoms. Client consumes 25-50% of meals, adequate PO fluid intake 2000mL, void x2, stool x 1. He denies a hx of withdrawal-induced seizures, Client reports NKA, he is full code, regular diet. Side rails x 2 up/padded for seizure precautions. Call light within reach.
--- NOTE | 2017-03-07 19:42 | NUR ---
START OF SHIFT NOTE/BENTYL RE-ASSESSMENT RECEIVED REPORT FROM DAY SHIFT NURSE. PATIENT IS A 31 YEAR OLD MALE ADMITTED FOR OPIATE/BENZO DEPENDENCE. PATIENT IS ON 2ND DAY OF HIS 5 DAY ATIVAN AND 5 DAY SUBUTEX TAPER. PATIENT REPORTS PMH OF ANXIETY, DEPRESSION, APPENDECTOMY, JAW SURGERY AND ORIF TO LEFT TOE DUE TO FX AND SEIZURE HISTORY 2006 R/T WITHDRAWAL. PATIENT WAS GIVEN PRN BENTYL X 2. PATIENT WAS GIVEN ONE TIME ATIVAN. LAST COWS 8 AND CIWA 7. PATIENT IN HIS ROOM, RESTING. PATIENT ALERT AND ORIENTED X 4. RESPIRATION EVEN AND UNLABORED. PATIENT REPORTS ANXIETY, SWEATING, NAUSEA BUT NO EMESIS, ABDOMINAL PAIN, NO BOWEL MOVEMENT, LAST ONE WAS 4 DAYS AGO BEFORE ADMISSION, BOWEL SOUNDS ACTIVE ON ALL QUADRANT, ABDOMEN SOFT AND NON DISTENDED. PER PATIENT BENTYL IS INEFFECTIVE. WILL NOTIFY DR. OLVERA. ON FALL/SEIZURE PRECAUTION. SAFETY MEASURES IN PLACE. CALL LIGHT IN REACH. WILL CONTINUE TO MONITOR.
[2017-03-07 20:00] VITALS: BP 126/76
[2017-03-07] MEDS: CLONIDINE HCL 0.1 MG TABLET PO SCH (20:23)
[2017-03-07] MEDS: OXCARBAZEPINE 300 MG TABLET PO SCH (20:23)
--- NOTE | 2017-03-07 21:24 | NUR ---
PRN MIRALAX ADMINISTRATION PATIENT C/O ABDOMINAL PAIN, PER PATIENT HE DOES NOT HAVE BM SINCE ADMISSION, BOWEL SOUNDS ACTIVE ALL 4 QUADRANT. ABDOMEN SOFT AND NON-DISTENDED. PRN MIRALAX GIVEN, ENCOURAGE FLUIDS.
[2017-03-07] MEDS: TRAZODONE 100 MG TABLET PO SCH (22:02)
--- NOTE | 2017-03-07 23:12 | NUR ---
PRN MAALOX AND MOTRIN ADMINISTRATION PATIENT STILL C/O ABDOMINAL PAIN, PRN MAALOX AND MOTRIN GIVEN. CONTINUE TO ENCOURAGE FLUIDS. WILL CONTINUE TO MONITOR
--- NOTE | 2017-03-07 23:59 | NUR ---
MD Communication: Patient reports to primary nurse Gloria that he has abdominal pain not relieved by PRN Bentyl. Patient also reports to primary nurse no bowel movement in 4 days, despite reporting to previous shift nurse that he did have a bowel movement today. Bowel sounds are active in all quadrants, noted with flatulence, and no distention. Patient requests to speak with charge nurse, and reports that his abdominal pain is relived by IV fluids and IV Ativan. Dr Nicole contacted and one-time order received for Magnesium Citrate PO. Order entered on behalf of Dr Nicole, as he is currently without computer access.
[2017-03-08] VITALS: BP 119/76
[2017-03-08] MEDS ORDERED: MAGNESIUM CITRATE 296 ML BOTTLE PO ONE
--- NOTE | 2017-03-08 00:12 | NUR ---
PRN MIRALAX AND MOTRIN RE-ASSESSMENT PATIENT STATES MIRALAX AND MOTRIN INEFFECTIVE , HE STATES THAT HE STILL HAS ABDOMINAL PAIN. WILL NOTIFY DR. OLVERA.
[2017-03-08] MEDS ORDERED: MAGNESIUM CITRATE 296 ML BOTTLE ONE (00:25)
--- NOTE | 2017-03-08 00:38 | NUR ---
ONE TIME MAGNESIUM CITRATE ADMINISTRATION DR. OLVERA MADE AN ORDER FOR MAGNESIUM CITRATE. WILL MONITOR FOR EFFECTIVENESS
--- NOTE | 2017-03-08 04:00 | NUR ---
COWS/CIWA DEFERRED PATIENT ASLEEP. REFUSED VS. COWS AND CIWA DEFERRED. RESPIRATION EVEN AND UNLABORED. SAFETY MEASURES IN [place]. CALL LIGHT IN REACH. WILL CONTINUE TO MONITOR.
--- NOTE | 2017-03-08 06:00 | NUR ---
PRN MIRALAX AND MAGNESIUM CITRATE RE-ASSESSMENT PATIENT HAD LARGE BM, FORMED . CONTINUE TO ENCOURAGE FLUIDS. WILL CONTINUE TO MONITOR.
[2017-03-08] MEDS: ONDANSETRON ODT 4 MG TAB.RAPDIS SL PRN ×2 (06:05→21:04)
--- NOTE | 2017-03-08 06:05 | NUR ---
PRN ZOFRAN SL ADMINISTRATION PATIENT VOMITED X 1. PRN ZOFRAN GIVEN. WILL MONITOR FOR EFFECTIVENESS
--- NOTE | 2017-03-08 07:05 | NUR ---
PRN ZOFRAN RE-ASSESSMENT PATIENT STATES ZOFRAN IS HELPFUL AND EFFECTIVE. VOMITING CEASED. WILL CONTINUE TO MONITOR.
--- NOTE | 2017-03-08 07:22 | NUR ---
END OF SHIFT NOTE PATIENT IS A 31 YEAR OLD MALE ADMITTED FOR OPIATE/BENZO DEPENDENCE. PATIENT IS ATIVAN AND SUBUTEX TAPER, TOLERATED WELL, NO ADVERSE REACTION. PATIENT WAS C/O ABDOMINAL PAIN. HE STATED HE HAD NO BOWEL MOVEMENT, LAST ONE WAS 4 DAYS AGO BEFORE ADMISSION, BOWEL SOUNDS ACTIVE ON ALL QUADRANT, ABDOMEN SOFT AND NON DISTENDED. MIRALAX WAS GIVEN. AT DR. OLVERA WAS NOTIFIED AND MADE AN ORDER FOR MAGNESIUM CITRATE, AT 0605, PATIENT HAD X1 VOMITING AND HAD LARGE BOWEL MOVEMENT. PRN ZOFRAN WAS GIVEN. ON FALL/SEIZURE PRECAUTION. SAFETY MEASURES IN PLACE. CALL LIGHT IN REACH. WILL CONTINUE TO MONITOR. SLEPT 4 HOURS. FLUID INTAKE 1,450 ML. VOIDED X 1 . BM X 1 . LAST COWS 5 AND CIWA 4.
--- NOTE | 2017-03-08 07:45 | NUR ---
START OF SHIFT Rcvd endorsement from ongoing nurse, client is in room, he is a/o x 4, he presents with depressed mood, flat affect, enlarged pupils. He reports abdominal cramps, restless legs, and fatigue. He denies any N/V/D. He denies any SI/HI. Encourage client to attend to group therapy for skills to maintain sober. Encourage client to increase PO fluid intake as tolerated to facilitate detox. Client is a 31 y/o male, admitted to [facility] for withdrawal from alprazolam and heroin. He is on 5 day Ativan/ 5 day Subutex taper, tolerating well. Last CIWA 4 /COWS 5 @ 2400. PRN Miralax for constipation PO, Magnesium Citrate 296mL PO for constipation. Maalox for heartburn PO, Motrin 600mg PO for pain, noted effective. LBM 03/08/17. Client slept 4 hrs. He denies a hx of withdrawal-induced seizures, Client reports NKA , he is full code, regular diet. Side rails x 2 up/padded for seizure precautions. Call light within reach.
[2017-03-08 08:09] VITALS: BP 118/62
[2017-03-08] MEDS ORDERED: BUPRENORPHINE HCL 2 MG TAB.SUBL SL SCH ×2 (09:00→15:00)
[2017-03-08] MEDS ORDERED: LORAZEPAM 1 MG TABLET PO SCH ×3 (09:00→21:00)
[2017-03-08] MEDS: OXCARBAZEPINE 300 MG TABLET PO SCH ×2 (09:41→20:40)
[2017-03-08] MEDS: BACLOFEN 10 MG TABLET PO SCH (09:41)
[2017-03-08] MEDS: ESCITALOPRAM OXALATE 10 MG TABLET PO SCH (09:41)
[2017-03-08] MEDS: buPROPion XL 150 MG TAB.SR.24H PO SCH (09:41)
[2017-03-08] MEDS: GABAPENTIN 300 MG CAPSULE PO SCH ×4 (09:41→20:39)
[2017-03-08] MEDS: busPIRone 10 MG TABLET PO SCH ×2 (09:42→17:15)
[2017-03-08] MEDS: CLONIDINE HCL 0.1 MG TABLET PO SCH ×3 (09:42→20:40)
[2017-03-08] MEDS: IV NS 1000 ML 1,000 ML IV SCH ×3 (11:00→20:00)
[2017-03-08] MEDS: DICYCLOMINE HCL 20 MG TABLET PO PRN (11:59)
[2017-03-08] MEDS: METHOCARBAMOL 750 MG TABLET PO PRN (11:59)
[2017-03-08] MEDS: ACETAMINOPHEN 325 MG TABLET PO PRN (11:59)
[2017-03-08] MEDS: CLONIDINE HCL 0.1 MG TABLET PO PRN (12:01)
--- NOTE | 2017-03-08 12:01 | NUR ---
PRN Clonidine 0.1mg PO for anxiety, irritability, Robaxin 750 mg PO for muscle pain on lower extremities, Bentyl 20mg PO for abdominal spasms, and Tylenol for generalized body aches 5/10. Call light within reach.
--- NOTE | 2017-03-08 12:01 | NUR ---
PRN Clonidine 0.1mg PO, Robaxin 750mg PO, Bentyl 20mg PO, Tylenol 650mg PO administered for anxiety, HR 136, generalized muscle pain 7/10, abdominal spasms, and general body aches respectively. Call light within reach.
[2017-03-08] MEDS: NICOTINE POLACRILEX 4 MG GUM-PK OF TEN BC PRN (12:07)
--- NOTE | 2017-03-08 12:07 | NUR ---
PRN Nicotine patch 14mg TD, Nicotine gum 4mg BC administered for cravings.
--- NOTE | 2017-03-08 12:07 | NUR ---
PRN Nicotine 14mg patch ID, nicotine gum 4mg BC for cravings.
--- NOTE | 2017-03-08 12:10 | NUR ---
Rapid influenza specimen x 2 , strep throat collected, client tolerated well.
[2017-03-08 12:25] VITALS: BP 124/74
--- NOTE | 2017-03-08 12:28 | NUR ---
MD Notification Client with non-productive cough, denies chest pain, no nasal flaring, spO2 @ 90% on RA, fine crackles on RLL, expiratory wheezing on LLL. Dr will order a chest x-ray
--- NOTE | 2017-03-08 13:01 | NUR ---
Reassessment PRN Clonidine 0.1mg PO, Robaxin 750 mg PO, Bentyl 20mg PO, and Tylenol 650mg PO, client is in bed, sound asleep, easy to arouse. RR 18. . Call light within reach.
--- NOTE | 2017-03-08 13:07 | NUR ---
Reassessment PRN Nicotine 14mg patch ID, nicotine gum 4mg BC, client sounds asleep, easy to arouse.
[2017-03-08 13:47] LABS: BASOPHILS # (AUTO) 0.1 K/uL (0.0-8.0); BASOPHILS % (AUTO) 0.9 % (0.0-2.0); EOSINOPHILS # (AUTO) 0.1 K/uL (0.0-0.7); EOSINOPHILS % (AUTO) 0.9 % (0.0-7.0); HEMOGLOBIN 13.9 G/DL (14.0-18.0); LYMPHOCYTES % (AUTO) 6.4 % (20.5-51.5); MEAN CORPUSCULAR HGB CONC 34 g/dL (32.0-37.0); MEAN CORPUSCULAR VOLUME 87.5 FL (82.0-92.0); MONOCYTES # (AUTO) 0.8 K/UL (0.1-1.30); MONOCYTES % (AUTO) 5.1 % (0.0-11.0); NEUTROPHILS # (AUTO) 13.1 K/UL (1.8-8.9); NEUTROPHILS % (AUTO) 86.7 % (38.5-71.5)
[2017-03-08 13:54] LABS: HEMATOCRIT 40.5 % (40-50); PLATELET COUNT (AUTO) 205 K/UL (150-450); RED BLOOD CELL COUNT(AUTO) 4.63 MIL/UL (4.7-6.1); WHITE BLOOD COUNT (AUTO) 15.1 K/UL (4.0-11.2)
[2017-03-08 13:55] LABS: CREATININE 1.2 mg/dL (0.6-1.3)
[2017-03-08 14:01] LABS: BILIRUBIN,DIRECT 0.2 mg/dL (0.0-0.2); BILIRUBIN,TOTAL 0.7 mg/dL (0.2-1.0); MAGNESIUM 1.8 mg/dL (1.8-2.4); TOTAL PROTEIN, SERUM 6.3 g/dL (6.4-8.2)
--- NOTE | 2017-03-08 14:27 | NUR ---
LACTIC ACID patient care technician Shakira reported Lactic acid is 2.3. Dr. Nicole notified and aware.
[2017-03-08] MEDS ORDERED: IV NS 1000 ML 1,000 ML IV ONE ×2 (14:45→20:30)
[2017-03-08] MEDS: BACLOFEN 20 MG TABLET PO SCH ×2 (14:53→20:40)
[2017-03-08] MEDS: BUPRENORPHINE HCL 2 MG TAB.SUBL SL SCH ×3 (14:53→20:39)
--- NOTE | 2017-03-08 15:07 | NUR ---
CLINICAL PHARMACY NOTE: VANCOMYCIN DOSING Request for vancomycin on 31 y/o male 6' 185 lbs empiric Temp 99.9 BUN 11 Scr 1.2 WBC 15.1 lactic acid 2.3 also started on Zosyn Start vancomycin 1250mg ivpb q12h estimated trough 13. Trough level ordered prior to 4th dose. Will continue to monitor.
[2017-03-08 15:20] LABS: BAND % (MANUAL) 16 % (0-10); LYMPHOCYTES % (MANUAL) 4 % (20-40); MONOCYTES % (MANUAL) 7 % (2-10); NEUTROPHILS % (MANUAL) 73 % (42-75)
--- NOTE | 2017-03-08 15:33 | NUR ---
MD NOTIFICATION XR CHEST Patchy left lung consolidations consistent with pneumonia in the correct clinical context. Specific pathogen cannot be determined. Consider chest CT for further evaluation.
--- NOTE | 2017-03-08 16:30 | NUR ---
Dr. Nicole notified repeat lactic acid lab not performed, NS 1000ml IV not completed, unable to place a peripheral IV earlier NNO at this time
[2017-03-08] MEDS: PIPERACILLIN/TAZOBACTAM/D5W 3.375 G in PREMIXED 1 EACH IV SCH ×2 (16:43→22:53)
[2017-03-08 16:55] VITALS: BP 128/71
[2017-03-08] MEDS: VANCOMYCIN IV 1,250 MG in IV DEXTROSE 5% 500 ML IV SCH (17:33)
--- NOTE | 2017-03-08 17:53 | NUR ---
MD COMMUNICATION Notified Dr. Nicole that patient had a drop in O2, assigned nurse check SpO2 and it was 77% room air, pt had taken Nasal Canula off. Education provided. Pt states he breaths from mouth. MD ordered non-rebreather at 15L, SpO2 is now 97%. Pt continues on IVF and IV antibx. 1:1 at this time for safety. Dr. Jones from ID to consult with client, please follow up.
--- NOTE | 2017-03-08 18:55 | NUR ---
Dr. Jones assess client. NNO at this time.
--- NOTE | 2017-03-08 19:15 | NUR ---
END OF SHIFT Client is a 31 y/o male, a/o x 4, admitted to [facility] for withdrawal from alprazolam and heroin. He is on 5 day Ativan/ 5 day Subutex taper, tolerating well. Last CIWA 8 / 7 @ 1600. Client continues to present with depressed mood, flat affect. Client is on non-rebreather mask 02 15 lpm with spO2 @ 95%. peripheral IV on R forearm 22G vancomycin 500ml running at prescribed rate, client tolerating well. PRN's given and noted per protocol. Client consumes 25-50% of meals, adequate PO fluid intake 437mL, void x4, stool x 1. He denies a hx of withdrawal-induced seizures, Client reports NKA, he is full code, regular diet. Side rails x 2 up/padded for seizure precautions. Call light within reach.
--- NOTE | 2017-03-08 19:30 | NUR ---
START OF SHIFT Pt is a 31 y/o male admitted on 03/05/17 for ETOH, Xanax and heroin dependence. Pt was dependent on 1-1.5 gram of heroin, 10 mg of Xanax and 750 ml of vodka daily for the past 7 days. Pt is full code, NKA, regular diet, fall/seizure precautions. Pt reports seizure hx, last in 2005 r/t withdrawal. Pt reports PMH of anxiety and depression. Pt is on a 5 day Ativan and 5 day Subutex taper started on 03/06/17, tolerating well. CXR on 03/08/17 positive for PNA. MRSA, rapid influenza and strep cultures negative. Pt is on droplet precautions. IVF NS 0.9% running at 125/mL with 22 gauge in right forearm. Lactic acid 2.3 on 03/08/17, pt had NS IV bolus during day shift. Pt is on aspiration precautions. Pt placed on 02 therapy nonrebreather mask 15L with 02 at 99%. Upon assessment pt laying in bed with eyes closed. Upon awakening, pt presents with increased HR 95, body aches, abdominal discomfort 6/10, dilated pupils, nausea, anxiety, irritability, photosensitivity, low grade fever, pale skin, headache, chills, sweats, productive cough, painful cough, dysphoria, anhedonia, fatigue and myalgias. Crackles/expiratory wheezing present in lower lobes. Respirations 16, even and unlabored. Denies V/D. Last BM 2 days ago, reports his regular BM is every 1-2 days. Abdomen soft, non-tender. Denies chest pain or SOB. IV Levofloxacin, Vancomycin, Zosyn and PO scheduled medications due. Sputum culture due. EKG due tomorrow. Safety measures in place. Call light within reach. Will continue to monitor. Addendum: 03/09/17 at 0152 by BALBINA BOSE RN Pt has 1:1 sitter d/t noncompliance with 02 therapy.
--- NOTE | 2017-03-08 19:31 | NUR ---
MD COMMUNICATION Telephone orders to put in Lactic acid lab draw at this time. MD is also aware of CXR results.
[2017-03-08 20:00] VITALS: BP 117/74
[2017-03-08] MEDS ORDERED: LEVOFLOXACIN 750MG/D5W 750 MG in PREMIXED 1 EACH IV SCH (20:00)
[2017-03-08] MEDS: OSELTAMIVIR PHOSPHATE 75 MG CAPSULE PO SCH (20:39)
[2017-03-08] MEDS: TRAZODONE 100 MG TABLET PO SCH (20:40)
--- NOTE | 2017-03-08 21:04 | NUR ---
PRN ZOFRAN SL ADMINISTRATION Pt reports nausea, denies any recent episodes in vomiting. Safety measures in place. 1:1 sitter at bedside. Nonrebreather mask [address] at 15 L with 02 at 98%. Will continue to monitor.
--- NOTE | 2017-03-08 21:34 | NUR ---
PRN ZOFRAN REASSESSMENT Pt reports improvement in nausea. No episodes of vomiting. Safety measures in place. 1:1 sitter at bedside. Nonrebreather [address] 15L with 02 98%. Will continue to monitor.
[2017-03-08] MEDS ORDERED: PIPERACILLIN/TAZOBACTAM/D5W 3.375 G in PREMIXED 1 EACH IV SCH (22:00)
[2017-03-09] VITALS: BP 124/64
--- NOTE | 2017-03-09 | NUR ---
COW/CIWA DEFERRED Pt is laying in bed with eyes closed, COW/CIWA deferred, to be assessed when pt is awake per orders. Respirations 16, even and unlabored. Safety measures in place. Side rails up x 2 and padded. Semi-fowlers position in place for aspiration precautions. 02 99% with nonrebreather mask at 15 L. 1:1 sitter at bedside. IVF NS running at 125 ml/hour. Will continue to monitor.
[2017-03-09] MEDS: IV NS 1000 ML 1,000 ML IV SCH ×2 (02:15→11:03)
[2017-03-09 04:00] VITALS: BP 115/59
--- NOTE | 2017-03-09 04:00 | NUR ---
COW/CIWA DEFERRED Pt is laying in bed with eyes closed, COW/CIWA deferred, to be assessed when pt is awake per orders. Respirations 16, even and unlabored. Safety measures in place. Side rails up x 2 and padded. Semi-fowlers position in place for aspiration precautions. 02 98% with nonrebreather mask at 15 L. 1:1 sitter at bedside. IVF NS running at 125 ml/hour. Will continue to monitor.
[2017-03-09] MEDS: VANCOMYCIN IV 1,250 MG in IV DEXTROSE 5% 500 ML IV SCH ×2 (04:43→16:02)
[2017-03-09] MEDS: PIPERACILLIN/TAZOBACTAM/D5W 3.375 G in PREMIXED 1 EACH IV SCH ×2 (06:55→13:28)
--- NOTE | 2017-03-09 07:33 | NUR ---
END OF SHIFT Pt is a 31 y/o male admitted on 03/05/17 for ETOH, Xanax and heroin dependence. Pt was dependent on 1-1.5 gram of heroin, 10 mg of Xanax and 750 ml of vodka daily for the past 7 days. Pt is full code, NKA, regular diet, fall/seizure precautions. Pt reports seizure hx, last in 2005 r/t withdrawal. Pt reports PMH of anxiety and depression. Pt is on a 5 day Ativan and 5 day Subutex taper started on 03/06/17, tolerating well. CXR on 03/08/17 positive for PNA. MRSA, rapid influenza and strep cultures negative. Pt is on droplet precautions. IVF NS 0.9% running at 125/mL with 22 gauge in right forearm. Lactic acid 2.3 on 03/08/17, NS IV bolus administered per orders, lactic acid lowered to 1.2. Pt is on aspiration precautions. Pt placed on 02 therapy nonrebreather mask 15L with 02 at 99%. Pt has 1:1 sitter d/t noncompliance with 02 therapy. Pt presented with increased HR in the 90s, body aches, abdominal discomfort 6/10, dilated pupils, nausea, anxiety, irritability, photosensitivity, low grade fever, pale skin, headache, chills, sweats, productive cough, painful cough, dysphoria, anhedonia, fatigue and myalgias. Scheduled medications and PRN Zofran administered, effective in S/S of withdrawal as verbalized by pt. Last COW 4 CIWA 6. Crackles/expiratory wheezing present in lower lobes. Abdomen soft, non-tender. Last BM yesterday. Denies chest pain or SOB. Sputum culture collected and sent to lab, results pending. EKG scheduled today. Pt slept 8 hours. Intake 500 ml, void x 1, stool x 0. Safety measures in place. Call light within reach. Pts needs have been met. Endorsed to day shift nurse.
[2017-03-09 08:00] VITALS: BP 84/48
--- NOTE | 2017-03-09 08:15 | NUR ---
Blood Draw Refusal Pt is in room denying blood draw from the labs since he states that he wants it only drawn from the PIV in his Rt FA which is not tolerable. notified, NNO's at this time.
[2017-03-09] MEDS ORDERED: LORAZEPAM 1 MG TABLET PO SCH (09:00)
[2017-03-09] MEDS: CLONIDINE HCL 0.1 MG TABLET PO SCH (10:03)
[2017-03-09] MEDS: busPIRone 10 MG TABLET PO SCH ×2 (10:03→16:12)
[2017-03-09] MEDS: BUPRENORPHINE HCL 2 MG TAB.SUBL SL SCH (10:03)
[2017-03-09] MEDS: GABAPENTIN 300 MG CAPSULE PO SCH ×2 (10:03→16:12)
[2017-03-09] MEDS: BACLOFEN 20 MG TABLET PO SCH ×2 (10:03→10:05)
[2017-03-09] MEDS: ESCITALOPRAM OXALATE 10 MG TABLET PO SCH (10:03)
[2017-03-09] MEDS: OXCARBAZEPINE 300 MG TABLET PO SCH (10:04)
[2017-03-09] MEDS: OSELTAMIVIR PHOSPHATE 75 MG CAPSULE PO SCH (10:04)
[2017-03-09] MEDS: buPROPion XL 150 MG TAB.SR.24H PO SCH (10:47)
[2017-03-09 12:00] VITALS: BP 98/66
[2017-03-09] MEDS ORDERED: IV NS 1000 ML 1,000 ML IV ONE ×2 (12:30→18:00)
--- NOTE | 2017-03-09 14:38 | NUR ---
Clinical pharmacy note-Vancomycin dosing per pharmacy Subjective: To continue Vancomycin dosing on this patient for severe sepsis(likely CAP vs HCAP) Objective: BUN 11(03/08) Scr 1.2(03/08) WBC 15.1(03/08) Temp 99.1 Assessment/Plan: Will continue Vancomycin 1250mg IV every 12hrs(second dose given today at 0443) and draw trough by 4th dose(ordered for tomorrow at 0430). Nurse will be informed to hold dose if level is over 20. Will continue to monitor.
[2017-03-09 16:00] VITALS: BP 88/41
[2017-03-09] MEDS: ACETAMINOPHEN 325 MG TABLET PO PRN (16:12)
[2017-03-09] MEDS: ONDANSETRON ODT 4 MG TAB.RAPDIS SL PRN (16:22)
--- NOTE | 2017-03-09 16:25 | NUR ---
PRN Medication Administration Pt is resting in bed very lethargic, flushed, sweat visible on face, heat palpated on the forehead, c/o nausea, Oral Temp 99.3, RR 22-24 with NRM 15LPM and NC 4LPM to keep SpO2 at 92%, BP 88/41 & HR 107 with NS 0.9% Bolus wide open; PRN Tylenol 650mg given for elevated temp, PRN Zofran given fore nausea and notified Dr. Nicole or the pt's status and how he has refused blood draw and ABG's after 2 attempts.Will cont. to monitor the pt.
--- NOTE | 2017-03-09 16:45 | NUR ---
ABG's Blood Draw Refusal Pt is not cooperative with another attempt for blood draw for ABG's and refused the Arterial Blood draw from the RT, notified the CN and Dr. Nicole is aware. Will cont. to monitor the pt.
--- NOTE | 2017-03-09 17:30 | NUR ---
Reassessment Pt Temp decreased from 99.3 to 99.1; Tylenol is somewhat effective at this time. Vanco is running at this time and given as ordered with the Bolus to finish as primary s/p vanco completion and V/S will be reassessed at that time. Will cont. to monitor the pt.
[2017-03-09 18:10] LABS: ABG BASE EXCESS 0.4 mmol/L; ABG HCO3 27.5 mmol/L; ABG PCO2 55.1 mmHg (35.0-45.0); ABG PH 7.316 (7.350-7.450); ABG PO2 80.8 mmHg (75.0-100.0); ABG SITE RIGHT RADIAL; ABG TOTAL HEMOGLOBIN 13.1 G/dL (13.5-18.0); COHb 0.9 % (0.5-1.5); MetHb 0.3 % (0.0-1.5); O2Hb 95.3 % (94.0-97.0)
--- NOTE | 2017-03-09 18:45 | NUR ---
Transfer New order to Transfer to ED for Respiratory Sepsis Evaluation r/t PNA and Destat. Hand off to HOSPITAL CARRIER with report.
[2017-03-09] MEDS ORDERED: NICO1PAT27 TD (19:28)
[2017-03-09] MEDS ORDERED: BUSP10TA3 PO (19:28)
[2017-03-09] MEDS ORDERED: ESCI10TA PO (19:28)
[2017-03-09] MEDS ORDERED: DIPH50CA4 PO (19:28)
[2017-03-09] MEDS ORDERED: PANT40TA4 PO (19:28)
[2017-03-09] MEDS ORDERED: BUPR2TAB3 SL (19:28)
[2017-03-09] MEDS ORDERED: ACET325T53 PO (19:28)
[2017-03-09] MEDS ORDERED: ONDA4VIA30 IM (19:28)
[2017-03-09] MEDS ORDERED: OSEL75CA PO (19:28)
[2017-03-09] MEDS ORDERED: DICY20TA11 PO (19:28)
[2017-03-09] MEDS ORDERED: IBUP-1955 PO (19:28)
[2017-03-09] MEDS ORDERED: NORMAL SALINE IV (19:28)
[2017-03-09] MEDS ORDERED: LORA2DIS4 IM (19:28)
[2017-03-09] MEDS ORDERED: ONDA4TAB5 SL (19:28)
[2017-03-09] MEDS ORDERED: TRAZ-147 PO (19:28)
[2017-03-09] MEDS ORDERED: LOPE-83 PO (19:28)
[2017-03-09] MEDS ORDERED: OXCA300T PO (19:28)
[2017-03-09] MEDS ORDERED: METH-406 PO (19:28)
[2017-03-09] MEDS ORDERED: VANC1.257 IV (19:28)
[2017-03-09] MEDS ORDERED: LACT1CAP57 PO (19:28)
[2017-03-09] MEDS ORDERED: BUPR-51 PO (19:28)
[2017-03-09] MEDS ORDERED: LEVO750P3 IV (19:28)
[2017-03-09] MEDS ORDERED: POLY255P2 PO (19:28)
[2017-03-09] MEDS ORDERED: BACL20TA PO (19:28)
[2017-03-09] MEDS ORDERED: [UNRECOGNIZED DRUG - CODE] BC (19:28)
[2017-03-09] MEDS ORDERED: MAG355OR18 PO (19:28)
[2017-03-09] MEDS ORDERED: CLON0.1T PO ×2 (19:28)
[2017-03-09] MEDS ORDERED: LORA1TAB PO ×2 (19:28)
[2017-03-09] MEDS ORDERED: PIPE3.3711 IV (19:28)
[2017-03-09] MEDS ORDERED: OXCARBAZEPINE 150 MG TABLET PO SCH (21:00)
[2017-03-09] MEDS ORDERED: LACTOBACILLUS RHAMNOSUS GG 1 EACH CAPSULE PO SCH (21:00)
[2017-03-10] MEDS ORDERED: PANTOPRAZOLE SODIUM 40 MG TABLET.DR PO SCH (07:00)
[2017-03-10] MEDS ORDERED: BUPRENORPHINE HCL 2 MG TAB.SUBL SL SCH (09:00)
[2017-03-10] MEDS ORDERED: LORAZEPAM 1 MG TABLET PO SCH (09:00)
== END 2017-03-09 18:51 | disposition short-term general hospital (02) | DRG 895 ==
LOC: SRC 16:48
PROVIDERS: ADMIT Internal Medicine; ATTEND Internal Medicine
PROC: HZ2ZZZZ Detoxification Services for Substance Abuse Treatment (ICD-10-PCS; principal; 2017-03-05)
PROC: HZ41ZZZ Group Counseling for Substance Abuse Treatment, Behavioral (ICD-10-PCS; 2017-03-06)
PROC: HZ31ZZZ Individual Counseling for Substance Abuse Treatment, Behavioral (ICD-10-PCS; 2017-03-06)
PROC: 5A09357 Assistance with Respiratory Ventilation, Less than 24 Consecutive Hours, Continuous Positive Airway Pressure (ICD-10-PCS; 2017-03-09)
DX: F10.232 Alcohol dependence with withdrawal with perceptual disturbance (principal); R65.20 Severe sepsis without septic shock; J96.02 Acute respiratory failure with hypercapnia; A41.9 Sepsis, unspecified organism; J18.9 Pneumonia, unspecified organism; F33.2 Major depressive disorder, recurrent severe without psychotic features; I15.9 Secondary hypertension, unspecified; F13.232 Sedative, hypnotic or anxiolytic dependence with withdrawal with perceptual disturbance; Y90.9 Presence of alcohol in blood, level not specified; F17.210 Nicotine dependence, cigarettes, uncomplicated; Z81.8 Family history of other mental and behavioral disorders; Z81.1 Family history of alcohol abuse and dependence; F41.9 Anxiety disorder, unspecified; Z79.899 Other long term (current) drug therapy; Z59.1 Inadequate housing; Z91.89 Other specified personal risk factors, not elsewhere classified; R73.9 Hyperglycemia, unspecified
CPT/HCPCS: 36415; 36600; 70030-TC; 71010; 80307; 80346; 83605; 83735; 85025; 86403; 86580; 86592; 86705; 86803; 87040; 87070; 87077; 87340; 87400; 87806; 93005; G0480; J1956; J2543; J3370; J7030; J7060; Q0162; Q0163

== ENCOUNTER 2017-03-09 18:46 | Inpatient (IN) | payer BC, OTHER ==
[~2017-03-09] VITALS: Ht 182.9 cm; Wt 105.0 kg
[~2017-03-09 18:46] MED LIST changes: -ESCI10TA55 PO; +VANCOMYCIN IV 1,500 MG in IV DEXTROSE 5% 500 ML IV SCH
[2017-03-09] MEDS ORDERED: CEFTRIAXONE 1 G in IV DEXTROSE 5% 50 ML IV ONE (19:00)
[2017-03-09] MEDS ORDERED: ALBUTEROL SULFATE 2.5 MG/ 0.5 ML NEBU NEB ONE (19:00)
[2017-03-09] MEDS ORDERED: ALBUTEROL SULFATE 2.5 MG/3 ML NEBU ONE (19:12)
[2017-03-09] MEDS ORDERED: DICY20TA11 PO (19:28)
[2017-03-09] MEDS ORDERED: [UNRECOGNIZED DRUG - CODE] BC (19:28)
[2017-03-09] MEDS ORDERED: CLON0.1T PO ×2 (19:28)
[2017-03-09] MEDS ORDERED: POLY255P2 PO (19:28)
[2017-03-09] MEDS ORDERED: BUPR2TAB3 SL (19:28)
[2017-03-09] MEDS ORDERED: OXCA300T PO (19:28)
[2017-03-09] MEDS ORDERED: MAG355OR18 PO (19:28)
[2017-03-09] MEDS ORDERED: BUSP10TA3 PO (19:28)
[2017-03-09] MEDS ORDERED: ONDA4VIA30 IM (19:28)
[2017-03-09] MEDS ORDERED: METH-406 PO (19:28)
[2017-03-09] MEDS ORDERED: LOPE-83 PO (19:28)
[2017-03-09] MEDS ORDERED: LEVO750P3 IV (19:28)
[2017-03-09] MEDS ORDERED: LORA1TAB PO ×2 (19:28)
[2017-03-09] MEDS ORDERED: NORMAL SALINE IV (19:28)
[2017-03-09] MEDS ORDERED: VANC1.257 IV (19:28)
[2017-03-09] MEDS ORDERED: LORA2DIS4 IM (19:28)
[2017-03-09] MEDS ORDERED: LACT1CAP57 PO (19:28)
[2017-03-09] MEDS ORDERED: BACL20TA PO (19:28)
[2017-03-09] MEDS ORDERED: TRAZ-147 PO (19:28)
[2017-03-09] MEDS ORDERED: PANT40TA4 PO (19:28)
[2017-03-09] MEDS ORDERED: OSEL75CA PO (19:28)
[2017-03-09] MEDS ORDERED: DIPH50CA4 PO (19:28)
[2017-03-09] MEDS ORDERED: PIPE3.3711 IV (19:28)
[2017-03-09] MEDS ORDERED: ONDA4TAB5 SL (19:28)
[2017-03-09] MEDS ORDERED: BUPR-51 PO (19:28)
[2017-03-09] MEDS ORDERED: ESCI10TA PO (19:28)
[2017-03-09] MEDS ORDERED: ACET325T53 PO (19:28)
[2017-03-09] MEDS ORDERED: NICO1PAT27 TD (19:28)
[2017-03-09] MEDS ORDERED: IBUP-1955 PO (19:28)
[2017-03-09 19:58] LABS: BASOPHILS # (AUTO) 0.1 K/uL (0.0-8.0); BASOPHILS % (AUTO) 0.4 % (0.0-2.0); EOSINOPHILS % (AUTO) 0.2 % (0.0-7.0); HEMATOCRIT 38.9 % (40-50); LYMPHOCYTES # (AUTO) 0.6 K/UL (0.8-4.8); LYMPHOCYTES % (AUTO) 3.1 % (20.5-51.5); MEAN CORPUSCULAR HEMOGLOBIN 29.9 UUG (27.0-31.0); MEAN CORPUSCULAR HGB CONC 33 g/dL (32.0-37.0); MEAN CORPUSCULAR VOLUME 89.8 FL (82.0-92.0); NEUTROPHILS # (AUTO) 18.4 K/UL (1.8-8.9); NEUTROPHILS % (AUTO) 91.3 % (38.5-71.5); PLATELET COUNT (AUTO) 178 K/UL (150-450); RED BLOOD CELL COUNT(AUTO) 4.34 MIL/UL (4.7-6.1); WHITE BLOOD COUNT (AUTO) 20.1 K/UL (4.0-11.2)
[2017-03-09 20:14] LABS: ABG BASE EXCESS 0.9 mmol/L; ABG HCO3 28.1 mmol/L; ABG PCO2 56.4 mmHg (35.0-45.0); ABG PH 7.315 (7.350-7.450); ABG PO2 211.9 mmHg (75.0-100.0); ABG SITE RIGHT RADIAL; ABG TOTAL HEMOGLOBIN 12.9 G/dL (13.5-18.0); COHb 0.8 % (0.5-1.5); MetHb 0.3 % (0.0-1.5); O2Hb 98.6 % (94.0-97.0); VENT MODE BIPAP
--- NOTE | 2017-03-09 20:15 | NUR ---
Per ABG results FIO2 lowered from 100% to 50% at this time.
[2017-03-09 20:22] LABS: *BILIRUBIN,URIN NEGATIVE (NEGATIVE); *BLOOD, URINE NEGATIVE (NEGATIVE); *CLARITY,URINE SLIGHTLY CLOUDY (CLEAR); *COLOR,URINE YELLOW (YELLOW); *KETONES,URINE NEGATIVE (NEGATIVE); *PROTEIN,URINE NEGATIVE (NEGATIVE); *UROBILINOGEN,URINE 0.2 E.U./dl (NORMAL); LEUKOCYTE ESTERASE ,URINE NEGATIVE (NEGATIVE); NITRITE, URINE NEGATIVE (NEGATIVE); PH,URINE 5.5 (5.0-8.0); UGLUCOSE NEGATIVE (NEGATIVE)
[2017-03-09 20:23] LABS: BILIRUBIN,DIRECT 0.2 mg/dL (0.0-0.2); BILIRUBIN,TOTAL 0.7 mg/dL (0.2-1.0); TOTAL PROTEIN, SERUM 6.4 g/dL (6.4-8.2)
[2017-03-09 20:31] LABS: BACTERIA,URINE NONE SEEN /HPF (NONE SEEN); RBC,URINE 0-3 /HPF (0-3); SQUAMOUS EPITHELIAL CELL,UR NONE SEEN /HPF (NONE SEEN); WBC,URINE 0-3 /HPF (0-3)
[2017-03-09] MEDS ORDERED: CEFTRIAXONE 1 G VIAL ONE (20:52)
[2017-03-09] MEDS ORDERED: IV NS 1000 ML 1,000 ML IV PRN (21:10)
[2017-03-09] MEDS ORDERED: ENOXAPARIN SODIUM 40 MG/0.4 ML DISP.SYRIN SQ SCH (21:15)
[2017-03-09] MEDS ORDERED: MAGNESIUM HYDROXIDE 30 ML LIQUID UDC PO PRN (21:15)
[2017-03-09] MEDS ORDERED: ZOLPIDEM 5 MG TABLET PO PRN (21:15)
[2017-03-09] MEDS ORDERED: Z GUARD REMEDY PASTE 57 GM TUBE TOP PRN (21:15)
[2017-03-09] MEDS ORDERED: ONDANSETRON 4 MG/2 ML VIAL IV PRN (21:15)
[2017-03-09] MEDS: IMIPENEM/CILASTATIN SODIUM 1,000 MG in IV NORMAL SALINE 250 ML IV SCH ×2 (21:15→22:55)
[2017-03-09] MEDS: NICOTINE 21 MG/24HR PATCH TD SCH (21:15)
--- NOTE | 2017-03-09 21:29 | NUR ---
Pt. admitted to CCU , under care of Dr. KLEIN Belongs List completed ENDORSED TO TANYA WOLF
[2017-03-09 21:30] VITALS: BP 116/65
--- NOTE | 2017-03-09 21:30 | NUR ---
received patient from ER .patient on bipap 15 over 5 ps 10 rr 16 fio2 50%.patient tolerating bipap ,breathing even and unlabored .patient aaox4/maex4.when asked patient denies pain. Oriented to icu equipment and set ups .continue to monitor vital signs and breathing pattern . Addendum: 03/10/17 at 0214 by TANYA HARTMAN RN Amended: Links added.
[2017-03-09 22:00] VITALS: BP 109/65
--- NOTE | 2017-03-09 22:00 | NUR ---
patient able to turned and reposition self .patient keeps removing bipap and very anxious and claimed his hungry . girlfrienboaz menon at bedside came to see patient .advised patient that he needs the bipap and to keep it on . Addendum: 03/10/17 at 0218 by TANYA HARTMAN RN Amended: Links added. Addendum: 03/10/17 at 2 by TANYA HARTMAN RN Amended: Links added. Addendum: 03/10/17 at 0232 by TANYA HARTMAN RN Amended: Links added.
[2017-03-09 22:30] VITALS: BP 116/76
--- NOTE | 2017-03-09 22:30 | NUR ---
patient ate had sandwich and apple juice . aspiration precaution observed and hob up, this time patient place patient on non breather mask 100% at 15 liter oxygen . Addendum: 03/10/17 at 0232 by TANYA HARTMAN RN Amended: Links added.
[2017-03-09 23:00] VITALS: BP 101/61
--- NOTE | 2017-03-09 23:00 | NUR ---
nicotine patch not available ,paper coating supervisor aware .
--- NOTE | 2017-03-09 23:00 | NUR ---
Pt removed from BIPAP and placed on 15LPM NRB at this time. RN SonyaT notified and aware.
[2017-03-09] MEDS: methylPREDNISolone SOD SUCC 40 MG/ML VIAL IV SCH (23:20)
[2017-03-09] MEDS: PANTOPRAZOLE SODIUM 40 MG VIAL IV SCH (23:22)
[2017-03-09] MEDS ORDERED: PANTOPRAZOLE SODIUM 40 MG VIAL ONE (23:29)
[2017-03-09 23:30] VITALS: BP 120/76
[2017-03-09] MEDS ORDERED: methylPREDNISolone SOD SUCC 40 MG/ML VIAL ONE (23:30)
[2017-03-09] MEDS ORDERED: ENOXAPARIN SODIUM 40 MG/0.4 ML DISP.SYRIN SQ ONE (23:30)
[2017-03-10] VITALS (32 sets, daily range): BP systolic 93–139; BP diastolic 37–74
--- NOTE | 2017-03-10 | NUR ---
due antibiotic given,no Primaxin md perez aware and change to meropenem. Addendum: 03/10/17 at 221 by TANYA HARTMAN RN Amended: Links added. Addendum: 03/10/17 at 231 by TANYA HARTMAN RN Amended: Links added.
[2017-03-10] MEDS: MEROPENEM 0.5 G in IV NORMAL SALINE 50 ML IV SCH ×2 (00:09→05:11)
[2017-03-10] MEDS ORDERED: MEROPENEM 500 MG VIAL IV ONE (00:17)
--- NOTE | 2017-03-10 00:17 | NUR ---
angelo came and updated with patient status and condition .see orders .
[2017-03-10] MEDS: IMIPENEM/CILASTATIN SODIUM 1,000 MG in IV NORMAL SALINE 250 ML IV SCH (00:35)
[2017-03-10] MEDS: LEVOFLOXACIN 750MG/D5W 750 MG in PREMIXED 1 EACH IV SCH (03:30)
--- NOTE | 2017-03-10 03:30 | NUR ---
patient refused ABG ,as per respiratory therapist patient was upset and was cursing him saying the F words .educated patient the importance of checking abg ,patient continue to refused .
--- NOTE | 2017-03-10 03:30 | NUR ---
Sonya MITCHELL saw patient , updated with patient status condition and treatments ,see new orders .
[2017-03-10] MEDS ORDERED: VANCOMYCIN 1000 MG VIAL ONE ×2 (04:13→20:41)
[2017-03-10] MEDS ORDERED: VANCOMYCIN HCL 500 MG VIAL ONE (04:13)
[2017-03-10] MEDS ORDERED: LEVOFLOXACIN 750MG/D5W 150 ML IV ONE (04:13)
[2017-03-10] MEDS ORDERED: ACETAMINOPHEN 325 MG TABLET ONE (04:16)
[2017-03-10] MEDS ORDERED: methylPREDNISolone SOD SUCC 40 MG/ML VIAL ONE (04:17)
--- NOTE | 2017-03-10 04:50 | NUR ---
no respiratory distress noted RR 19,saturation 94 % on nonbreather mask 15 liters .
[2017-03-10] MEDS ORDERED: VANCOMYCIN IV 1,250 MG in IV DEXTROSE 5% 500 ML IV SCH (05:00)
[2017-03-10] MEDS: methylPREDNISolone SOD SUCC 40 MG/ML VIAL IV SCH ×4 (05:12→21:16)
[2017-03-10 05:33] LABS: BASOPHILS % (AUTO) 0.1 % (0.0-2.0); EOSINOPHILS % (AUTO) 0.2 % (0.0-7.0); HEMATOCRIT 37.8 % (40-50); HEMOGLOBIN 12.7 G/DL (14.0-18.0); LYMPHOCYTES # (AUTO) 0.5 K/UL (0.8-4.8); LYMPHOCYTES % (AUTO) 2.8 % (20.5-51.5); MEAN CORPUSCULAR HEMOGLOBIN 30.3 UUG (27.0-31.0); MEAN CORPUSCULAR HGB CONC 34 g/dL (32.0-37.0); MEAN CORPUSCULAR VOLUME 89.9 FL (82.0-92.0); MONOCYTES # (AUTO) 0.4 K/UL (0.1-1.30); MONOCYTES % (AUTO) 2.1 % (0.0-11.0); NEUTROPHILS # (AUTO) 17.9 K/UL (1.8-8.9); NEUTROPHILS % (AUTO) 94.8 % (38.5-71.5); PLATELET COUNT (AUTO) 148 K/UL (150-450); WHITE BLOOD COUNT (AUTO) 18.8 K/UL (4.0-11.2)
[2017-03-10 05:46] LABS: BILIRUBIN,TOTAL 0.6 mg/dL (0.2-1.0); MAGNESIUM 1.8 mg/dL (1.8-2.4); PHOSPHOROUS 2.3 mg/dL (2.5-4.9); POTASSIUM 4.3 mmol/L (3.5-5.1); TOTAL PROTEIN, SERUM 6.4 g/dL (6.4-8.2)
[2017-03-10 05:52] LABS: THYROID STIMULATING HORMONE 0.361 mIU/mL (0.358-3.740)
[2017-03-10] MEDS: OSELTAMIVIR PHOSPHATE 75 MG CAPSULE PO SCH ×2 (08:47→20:13)
[2017-03-10] MEDS: NICOTINE 21 MG/24HR PATCH TD SCH (08:47)
[2017-03-10] MEDS: PANTOPRAZOLE SODIUM 40 MG VIAL IV SCH (08:47)
--- NOTE | 2017-03-10 10:00 | NUR ---
Dr. Cartwright in the unit to examine patient, report given. see orders.
[2017-03-10] MEDS ORDERED: MVI ADULT 10 ML VIAL=1 AMP 10 ML, FOLIC ACID 1 MG, THIAMINE HCL INJ 100 MG, MAGNESIUM S... IV PRN ×5 (10:30)
[2017-03-10] MEDS ORDERED: D5W IV PRN (10:45)
[2017-03-10] MEDS ORDERED: MVI ADULT IV PRN (10:45)
[2017-03-10] MEDS ORDERED: THIAMINE HCL INJ 100 MG in IV DEXTROSE 5% 50 ML IV SCH (10:45)
[2017-03-10] MEDS ORDERED: MAGNESIUM SULFATE 1 GM in IV DEXTROSE 5% 50 ML IV SCH (10:45)
--- NOTE | 2017-03-10 11:00 | NUR ---
Dr. Ramesh pulmonary services, in the unit to examine patient; report given.
--- NOTE | 2017-03-10 12:07 | NUR ---
PHARMACY NOTE: (VANCOMYCIN DOSING) Subjective: Vancomycin to continue for this 31 YO male patient for sepsis, pna Objective: ht 6' wt 221 lb bun /scr 9/1.0 wbc 18.8 temp 98.6 A/P: Will start vanco 1500mg IVPB q9h for predicted vanco trough level of 17 mcg/ml at steady state. Second dose is due today at 2100. Plan to draw vanco trough level before 4th dose (ordered for 03/11 at 1430). Pharmacy shall review the level & adjust the dose if needed. Will monitor daily.
[2017-03-10] MEDS: VANCOMYCIN IV 1,500 MG in IV DEXTROSE 5% 500 ML IV SCH ×2 (12:24→20:39)
[2017-03-10] MEDS: ACETAMINOPHEN 325 MG TABLET PO PRN (12:59)
[2017-03-10] MEDS: MEROPENEM 1 G in IV NORMAL SALINE 100 ML IV SCH ×2 (14:51→21:15)
[2017-03-10] MEDS ORDERED: NEUTRA PHOS PACKET PO ONE (15:30)
[2017-03-10] MEDS: LORAZEPAM 2 MG/1 ML VIAL IV PRN ×3 (16:18→23:58)
--- NOTE | 2017-03-10 17:45 | NUR ---
Dr. Jones ID services in to assess patient, report given.
--- NOTE | 2017-03-10 19:30 | NUR ---
received patient on nasal cannula at 4 l/min.no respiratory distress noted and breathing even and unlabored .RR 16 saturation 95% .continue to monitor vital sign and breathing pattern. Addendum: 03/10/17 at 2100 by TANYA HARTMAN RN Amended: Links added.
--- NOTE | 2017-03-10 19:50 | NUR ---
patient verbalized understand with regards to plan of treatment PNA,given Ativan prn as requested . continue to monitor levels of anxiety and agitation . patient with history of heroin addiction. Addendum: 03/10/17 at 2134 by TANYA HARTMAN RN Amended: Links added.
--- NOTE | 2017-03-10 19:50 | NUR ---
patient verbalized understand with regards to plan of treatment PNA, given Ativan as requested , Addendum: 03/10/17 at 2134 by TANYA HARTMAN RN Amended: Links added.
[2017-03-10] MEDS: ENOXAPARIN SODIUM 40 MG/0.4 ML DISP.SYRIN SQ SCH (20:13)
[2017-03-10] MEDS: LACTOBACILLUS RHAMNOSUS GG 1 EACH CAPSULE PO SCH (20:14)
--- NOTE | 2017-03-10 23:30 | NUR ---
steady of gait,escorted to the bathroom . patient had x1 BM moderate in amt soft brownish in color . changed soiled linens and gown .pm care done .patient able to help with adls . Addendum: 03/11/17 at 0042 by TANYA HARTMAN RN Amended: Links added.
[2017-03-11] VITALS (10 sets, daily range): BP systolic 102–136; BP diastolic 57–95
[2017-03-11] MEDS: LEVOFLOXACIN 750MG/D5W 750 MG in PREMIXED 1 EACH IV SCH (02:49)
--- NOTE | 2017-03-11 04:00 | NUR ---
labs collected bmp and phos . flushed midline ivf site .
--- NOTE | 2017-03-11 04:45 | NUR ---
patient had PORTABLE CHEST XRAY by mobile sales technician at bedside .
[2017-03-11 05:03] LABS: CREATININE 0.8 mg/dL (0.6-1.3); PHOSPHOROUS 2.8 mg/dL (2.5-4.9)
[2017-03-11] MEDS: methylPREDNISolone SOD SUCC 40 MG/ML VIAL IV SCH ×3 (05:13→21:02)
[2017-03-11] MEDS: MEROPENEM 1 G in IV NORMAL SALINE 100 ML IV SCH ×2 (05:13→13:17)
[2017-03-11] MEDS: VANCOMYCIN IV 1,500 MG in IV DEXTROSE 5% 500 ML IV SCH (05:13)
--- NOTE | 2017-03-11 06:00 | NUR ---
patient in bed asleep breathing even and unlabored no respiratory distress noted tolerating nasal cannula at 4 liter /min . RR 18 saturation 95% ..
[2017-03-11] MEDS: PANTOPRAZOLE SODIUM 40 MG TABLET.DR PO SCH (06:06)
[2017-03-11] MEDS: ACETAMINOPHEN 325 MG TABLET PO PRN (07:51)
[2017-03-11] MEDS: LORAZEPAM 2 MG/1 ML VIAL IV PRN ×4 (07:52→18:47)
--- NOTE | 2017-03-11 08:00 | NUR ---
medicated for headache scale 10/06 and for anxiety. Addendum: 03/11/17 at 0820 by ERENDIRA FELDER RN Amended: Links added.
[2017-03-11] MEDS: LACTOBACILLUS RHAMNOSUS GG 1 EACH CAPSULE PO SCH ×2 (08:41→20:47)
[2017-03-11] MEDS: OSELTAMIVIR PHOSPHATE 75 MG CAPSULE PO SCH ×2 (08:42→20:47)
[2017-03-11] MEDS: NICOTINE 21 MG/24HR PATCH TD SCH (09:17)
--- NOTE | 2017-03-11 10:46 | NUR ---
family at the bedside, mother and girlfriend. condition report given Addendum: 03/11/17 at 1046 by ERENDIRA FELDER RN Amended: Links added. Addendum: 03/11/17 at 1101 by ERENDIRA FELDER RN Amended: Links added.
--- NOTE | 2017-03-11 11:03 | NUR ---
seen by dr perez. orders received to transfer patient to tele status Addendum: 03/11/17 at 1104 by ERENDIRA FELDER RN Amended: Links added.
[2017-03-11] MEDS ORDERED: MAGNESIUM SULFATE/D5W 100 ML IV SCH ×2 (11:30→12:00)
[2017-03-11 11:58] LABS: BASOPHILS # (AUTO) 0.1 K/uL (0.0-8.0); BASOPHILS % (AUTO) 0.7 % (0.0-2.0); HEMATOCRIT 37.2 % (40-50); LYMPHOCYTES # (AUTO) 0.8 K/UL (0.8-4.8); LYMPHOCYTES % (AUTO) 4.9 % (20.5-51.5); MEAN CORPUSCULAR HGB CONC 32 g/dL (32.0-37.0); MEAN CORPUSCULAR VOLUME 89.7 FL (82.0-92.0); MONOCYTES # (AUTO) 0.3 K/UL (0.1-1.30); MONOCYTES % (AUTO) 2.1 % (0.0-11.0); NEUTROPHILS # (AUTO) 14.5 K/UL (1.8-8.9); NEUTROPHILS % (AUTO) 92.3 % (38.5-71.5); PLATELET COUNT (AUTO) 167 K/UL (150-450); RED BLOOD CELL COUNT(AUTO) 4.15 MIL/UL (4.7-6.1); WHITE BLOOD COUNT (AUTO) 15.7 K/UL (4.0-11.2)
[2017-03-11] MEDS: FOLIC ACID 1 MG TABLET PO SCH (12:34)
[2017-03-11] MEDS: THIAMINE HCL 100 MG TABLET PO SCH (12:34)
[2017-03-11] MEDS: MULTIVITAMINS,THERAPEUTIC TABLET PO SCH (12:34)
--- NOTE | 2017-03-11 12:38 | NUR ---
seen by dr Ramesh. orders received Addendum: 03/11/17 at 1239 by ERENDIRA FELDER RN Amended: Links added.
[2017-03-11] MEDS ORDERED: IV NORMAL SALINE 250 ML IV ONE (12:51)
[2017-03-11] MEDS ORDERED: IOHEXOL 300MG/ML 100 ML INFUS..BTL ONE (12:51)
--- NOTE | 2017-03-11 14:30 | NUR ---
transferred to telemetry. [facility]
[2017-03-11 14:37] LABS: BAND % (MANUAL) 6 % (0-10); LYMPHOCYTES % (MANUAL) 6 % (20-40); MONOCYTES % (MANUAL) 5 % (2-10); NEUTROPHILS % (MANUAL) 83 % (42-75)
--- NOTE | 2017-03-11 16:06 | NUR ---
PHARMACY NOTE: (VANCOMYCIN DOSING) Subjective: Vancomycin to continue for this 31 YO male patient for sepsis, pna Objective: ht 6' wt 221 lb bun /scr 10/0.8 wbc 15.7 temp 98.7 Vancomycin trough 10.5 today at 1430 A/P: Will change vanco to 2000mg IVPB q8h for predicted vanco trough level of 17 mcg/ml at steady state. First dose is due today at 1630. Plan to draw vanco trough level before 4th dose (ordered for 03/12 at 1630). Pharmacy shall review the level & adjust the dose if needed. Will monitor daily.
[2017-03-11] MEDS: VANCOMYCIN IV 2,000 MG in IV DEXTROSE 5% 500 ML IV SCH (16:34)
--- NOTE | 2017-03-11 19:40 | NUR ---
RECEIVED PATIENT IN HIS ROOM, NO SOB NO CHEST PAIN, RHYTHM SINUS RHYTHM, CONT ON PAIN MANAGEMENT, CONTINENT OF BOWEL AND BLADDER, PATIENT HAS 2 BOWEL MOVEMENT TODAY PER RESIDENT, CONT TO MONITOR.
[2017-03-11] MEDS: ENOXAPARIN SODIUM 40 MG/0.4 ML DISP.SYRIN SQ SCH (20:57)
--- NOTE | 2017-03-11 23:28 | NUR ---
PATIENT REQUESTING TO BRING BACK [facility] LEXAPRO 10 MG PO AND WELLBUTRIN 150 XL FOR HIS DEPRESSION, NOTIFY CATHERINE OLIVIER, WITH ORDER.
[2017-03-12] VITALS: BP 95/46
[2017-03-12] MEDS: VANCOMYCIN IV 2,000 MG in IV DEXTROSE 5% 500 ML IV SCH ×3 (00:46→16:22)
[2017-03-12] MEDS: LORAZEPAM 2 MG/1 ML VIAL IV PRN ×4 (00:51→20:31)
[2017-03-12 04:00] VITALS: BP 127/85
--- NOTE | 2017-03-12 04:53 | NUR ---
PATIENT SLEPT MOST OF THE NIGHT, NO SOB NO CHEST PAIN NOTED, RHYTHM SINUS RHYTHM, WITH EPISODE OF ANXIETY, GIVEN ATIVAN ORDERED WITH NO ADVERSE REACTION NOTED, NO COUGHING NOTED, CALL LIGHT WITHIN REACH.
[2017-03-12] MEDS: methylPREDNISolone SOD SUCC 40 MG/ML VIAL IV SCH ×2 (06:03→14:00)
[2017-03-12] MEDS: PANTOPRAZOLE SODIUM 40 MG TABLET.DR PO SCH (06:03)
[2017-03-12] MEDS: NICOTINE 21 MG/24HR PATCH TD SCH (08:14)
[2017-03-12] MEDS: MULTIVITAMINS,THERAPEUTIC TABLET PO SCH (08:14)
[2017-03-12] MEDS: THIAMINE HCL 100 MG TABLET PO SCH (08:15)
[2017-03-12] MEDS: buPROPion XL 150 MG TAB.SR.24H PO SCH (08:15)
[2017-03-12] MEDS: LACTOBACILLUS RHAMNOSUS GG 1 EACH CAPSULE PO SCH ×2 (08:15→20:31)
[2017-03-12] MEDS: FOLIC ACID 1 MG TABLET PO SCH (08:15)
[2017-03-12] MEDS: ESCITALOPRAM OXALATE 10 MG TABLET PO SCH (08:15)
[2017-03-12] MEDS: OSELTAMIVIR PHOSPHATE 75 MG CAPSULE PO SCH ×2 (08:15→20:31)
--- NOTE | 2017-03-12 09:54 | NUR ---
PT RECEIVED LAYING IN BED, NO ACUTE DISTRESS NOTED. PT C/O ANXIETY, GIVEN ATIVAN PRN ORDERED, NASAL CANULA APPLIED WITH OXYGEN AT 2 LITERS WITH ATIVAN. COMPLIANT WITH PO MEDICATIONS. MIDLINE IN RIGHT UPPER ARM, INTACT AND PATENT. DENIES ANT WITHDRAWAL SYMPTOMS BESIDES ANXIETY. SOME YAWNING NOTED. BED IN LOW AND LOCKED POSITION. CALL LIGHT WITHIN REACH.
[2017-03-12 11:46] VITALS: BP 117/65
[2017-03-12 12:16] LABS: HEMATOCRIT 37.5 % (40-50); HEMOGLOBIN 12.7 G/DL (14.0-18.0); LYMPHOCYTES # (AUTO) 1.1 K/UL (0.8-4.8); LYMPHOCYTES % (AUTO) 8.8 % (20.5-51.5); MEAN CORPUSCULAR HGB CONC 34 g/dL (32.0-37.0); MEAN CORPUSCULAR VOLUME 88.7 FL (82.0-92.0); MONOCYTES # (AUTO) 0.6 K/UL (0.1-1.30); NEUTROPHILS # (AUTO) 11.1 K/UL (1.8-8.9); NEUTROPHILS % (AUTO) 86.2 % (38.5-71.5); PLATELET COUNT (AUTO) 215 K/UL (150-450); RED BLOOD CELL COUNT(AUTO) 4.23 MIL/UL (4.7-6.1); WHITE BLOOD COUNT (AUTO) 12.8 K/UL (4.0-11.2)
[2017-03-12 12:18] LABS: BILIRUBIN,TOTAL 0.5 mg/dL (0.2-1.0); CREATININE 0.9 mg/dL (0.6-1.3); MAGNESIUM 1.8 mg/dL (1.8-2.4); PHOSPHOROUS 3.1 mg/dL (2.5-4.9); POTASSIUM 3.4 mmol/L (3.5-5.1); TOTAL PROTEIN, SERUM 5.7 g/dL (6.4-8.2)
[2017-03-12 12:46] LABS: BAND % (MANUAL) 3 % (0-10); LYMPHOCYTES % (MANUAL) 9 % (20-40); MONOCYTES % (MANUAL) 1 % (2-10); NEUTROPHILS % (MANUAL) 87 % (42-75)
[2017-03-12] MEDS ORDERED: POTASSIUM CHLORIDE 20 MEQ TAB.PRT.SR PO ONE (13:15)
[2017-03-12] MEDS ORDERED: MEROPENEM 1 G in IV NORMAL SALINE 100 ML IV ONE (14:30)
[2017-03-12] MEDS ORDERED: IPRATROPIUM BROMIDE 0.5 MG/2.5 ML NEBU NEB PRN (15:00)
[2017-03-12] MEDS ORDERED: ALBUTEROL SULFATE 2.5 MG/3 ML NEBU NEB PRN (15:00)
[2017-03-12 15:48] VITALS: BP 124/82
--- NOTE | 2017-03-12 16:23 | NUR ---
VANCO TROUGH 22.7, PHARMACY NOTIFIED AND VANCO DUE AT 1630 NOT GIVEN. WILL NOTIFY
--- NOTE | 2017-03-12 16:51 | NUR ---
PHARMACY NOTE: (VANCOMYCIN DOSING) Subjective: Vancomycin to continue for this 31 YO male patient for sepsis, pna Objective: ht 6' wt 221 lb bun /scr 15/0.9 wbc 12.8 temp 99 Vancomycin trough 22.7 today at 1600 A/P: Since vanco trough level is supra-therapeutic, will change vanco to 2000mg IVPB q11h for predicted vanco trough level of 16 mcg/ml at steady state. First dose is due today at 2200. Plan to draw vanco trough level before 4th dose (not yet ordered). Will monitor daily.
--- NOTE | 2017-03-12 18:38 | NUR ---
PT LAYING IN BED, NO ACUTE DISTRESS NOTED. TELE DISCONTINUED. COMFORT MEASURES PROVIDED.
[2017-03-12] MEDS: IPRATROPIUM BROMIDE 0.5 MG/2.5 ML NEBU NEB SCH (19:23)
[2017-03-12] MEDS: ALBUTEROL SULFATE 2.5 MG/3 ML NEBU NEB SCH (19:24)
--- NOTE | 2017-03-12 19:30 | NUR ---
Received patient laying comfortably in bed. A&O x 4. No acute distress noted. No c/o pain or SOB. Midline on the right upper arm, patent and intact. Safety initiated. Call light within reach.
[2017-03-12 20:21] VITALS: BP 133/81
[2017-03-12] MEDS: ENOXAPARIN SODIUM 40 MG/0.4 ML DISP.SYRIN SQ SCH (20:32)
[2017-03-12] MEDS ORDERED: methylPREDNISolone SOD SUCC 40 MG/ML VIAL IV SCH (21:00)
[2017-03-12] MEDS ORDERED: MEROPENEM 1 G in IV NORMAL SALINE 100 ML IV SCH (22:00)
[2017-03-12] MEDS ORDERED: VANCOMYCIN IV 2,000 MG in IV DEXTROSE 5% 500 ML IV SCH (22:00)
[2017-03-12] MEDS: CEFAZOLIN 2 G in IV DEXTROSE 5% 100 ML IV SCH (22:10)
[2017-03-13] MEDS: ALBUTEROL SULFATE 2.5 MG/3 ML NEBU NEB SCH ×3 (01:30→12:51)
[2017-03-13] MEDS: IPRATROPIUM BROMIDE 0.5 MG/2.5 ML NEBU NEB SCH ×3 (01:30→12:51)
--- NOTE | 2017-03-13 02:13 | NUR ---
Pt asleep. No respiratory distress noted. HHN tx not given. RN Jessica notified.
[2017-03-13 04:58] VITALS: BP 112/73
[2017-03-13] MEDS: CEFAZOLIN 2 G in IV DEXTROSE 5% 100 ML IV SCH ×3 (05:21→15:17)
[2017-03-13] MEDS: LORAZEPAM 2 MG/1 ML VIAL IV PRN ×2 (05:23→11:59)
--- NOTE | 2017-03-13 06:25 | NUR ---
Patient asleep right now. Slept most of the shift. No c/o pain or sob. Safety and comfort measures maintained t/o shift. Vital signs stable. All meds given as ordered. All needs met.
[2017-03-13] MEDS: PANTOPRAZOLE SODIUM 40 MG TABLET.DR PO SCH (07:18)
[2017-03-13 07:42] LABS: BASOPHILS % (AUTO) 0.2 % (0.0-2.0); HEMATOCRIT 35.8 % (36.7-47.1); HEMOGLOBIN 12.6 g/dL (12.5-16.3); LYMPHOCYTES # (AUTO) 1.7 K/uL (20.0-40.0); LYMPHOCYTES % (AUTO) 14.7 % (20.5-51.5); MEAN CORPUSCULAR HEMOGLOBIN 30.8 uug (23.8-33.4); MEAN CORPUSCULAR HGB CONC 35 g/dL (32.5-36.3); MEAN CORPUSCULAR VOLUME 87.5 fL (73.0-96.2); MONOCYTES # (AUTO) 0.7 K/uL (2.0-10.0); MONOCYTES % (AUTO) 5.8 % (0.0-11.0); NEUTROPHILS # (AUTO) 9.2 K/uL (1.8-8.9); NEUTROPHILS % (AUTO) 79.3 % (38.5-71.5); PLATELET COUNT (AUTO) 194 K/uL (152-348); RED BLOOD CELL COUNT(AUTO) 4.09 MIL/uL (4.06-5.63); WHITE BLOOD COUNT (AUTO) 11.6 K/uL (3.6-10.2)
[2017-03-13 08:02] LABS: BILIRUBIN,TOTAL 0.4 mg/dL (0.2-1.0); CREATININE 0.9 mg/dL (0.6-1.3); PHOSPHOROUS 4.9 mg/dL (2.5-4.9); TOTAL PROTEIN, SERUM 5.5 g/dL (6.4-8.2)
--- NOTE | 2017-03-13 08:10 | NUR ---
PT RECEIED SLEEPING IN BED, EASILY AROUSABLE. MIDLINE IN RIGHT UPPER ARM, INTACT AND PATENT. LUNG SOUNDS CLEAR WITH AUSCULTATION. DENIES ANY PHYSICAL PAIN AT THIS TIME. BED IN LOW AND LOCKED POSITION. CALL LIGHT WITHIN REACH.
--- NOTE | 2017-03-13 08:42 | NUR ---
PT REFUSED TX AT THIS TIME. NO RESPIRATORY DISTRESS NOTED. RN NOTIFIED.
[2017-03-13] MEDS: THIAMINE HCL 100 MG TABLET PO SCH (09:33)
[2017-03-13] MEDS: buPROPion XL 150 MG TAB.SR.24H PO SCH (09:33)
[2017-03-13] MEDS: FOLIC ACID 1 MG TABLET PO SCH (09:33)
[2017-03-13] MEDS: OSELTAMIVIR PHOSPHATE 75 MG CAPSULE PO SCH (09:33)
[2017-03-13] MEDS: MULTIVITAMINS,THERAPEUTIC TABLET PO SCH (09:33)
[2017-03-13] MEDS: NICOTINE 21 MG/24HR PATCH TD SCH (09:33)
[2017-03-13] MEDS: LACTOBACILLUS RHAMNOSUS GG 1 EACH CAPSULE PO SCH (09:33)
[2017-03-13] MEDS: ESCITALOPRAM OXALATE 10 MG TABLET PO SCH (09:33)
[2017-03-13 10:56] LABS: BAND % (MANUAL) 2 % (0-10); LYMPHOCYTES % (MANUAL) 13 % (20-40); METAMYELOCYTES % 1 % (0-1); MONOCYTES % (MANUAL) 9 % (2-10); NEUTROPHILS % (MANUAL) 75 % (42-75)
[2017-03-13 12:21] VITALS: BP 106/73
[2017-03-13] MEDS ORDERED: CEFA2PLA10 IV (13:06)
[2017-03-13] MEDS ORDERED: PRED20TA PO (13:06)
[2017-03-13] MEDS ORDERED: PANT40TA2 PO (13:06)
[2017-03-13] MEDS ORDERED: IPRA0.2S6 NEB ×2 (13:06)
[2017-03-13] MEDS ORDERED: FOLI1TAB16 PO (13:06)
[2017-03-13] MEDS ORDERED: LACT1CAP57 PO (13:06)
[2017-03-13] MEDS ORDERED: MULT-24 PO (13:06)
[2017-03-13] MEDS ORDERED: BUPR-96 PO (13:06)
[2017-03-13] MEDS ORDERED: MAGN400O6 PO (13:06)
[2017-03-13] MEDS ORDERED: NICO1PAT28 TD (13:06)
[2017-03-13] MEDS ORDERED: LORA2VIA6 IV (13:06)
[2017-03-13] MEDS ORDERED: THIA100T13 PO (13:06)
[2017-03-13] MEDS ORDERED: PRED10TA PO (13:06)
[2017-03-13] MEDS ORDERED: PRED-170 PO (13:06)
[2017-03-13] MEDS ORDERED: ACET325T53 PO (13:06)
[2017-03-13] MEDS ORDERED: ALBU2.5V7 NEB ×2 (13:06)
[2017-03-13] MEDS ORDERED: OSEL75CA PO (13:06)
[2017-03-13] MEDS ORDERED: ESCI10TA PO (13:06)
[2017-03-13] MEDS ORDERED: ZOLP5TAB8 PO (13:06)
--- NOTE | 2017-03-13 15:05 | NUR ---
DISCHARGE NOTE PT IS DISCHARGING TO [facility] AND WILL BE ACCOMPANIED BY INTAKE STAFF FOR [facility]. PT IS AOX4 COMPLIANT AND COOPERATIVE. VITAL SIGNS WNL, DENIES ANY SOB, CHEST PAIN, OR PHYSICAL DISCOMFORT. PT VERBALIZED UNDERSTANDING OF DISCHARGE INSTRUCTIONS, PT ENCOURAGED TO FOLLOW THROUGH WITH RECOVERY AND MEDICATION COMPLIANCE. PT WILL BE SEEN AND FOLLOW UP WITH DR OLVERA ON [facility]. NO ACUTE DISTRESS NOTED. BELONGINGS RETURNED TO PT. PER OKAY TO LEAVE MIDLINE IN RIGHT ARM. AWAITING [facility] UNIT STAFF TO MANAGER INVESTMENT PATIENT. REPORT GIVEN TO LORNA WOLF.
[2017-03-13 16:47] VITALS: BP 124/85
[2017-03-13] MEDS ORDERED: predniSONE 20 MG TABLET PO SCH (18:00)
[2017-03-13] MEDS ORDERED: methylPREDNISolone SOD SUCC 40 MG/ML VIAL IV SCH (21:00)
[2017-03-14] MEDS ORDERED: predniSONE 10 MG TABLET PO SCH (18:00)
[2017-03-15] MEDS ORDERED: predniSONE 5 MG TABLET PO SCH (18:00)
[2017-03-17] MEDS ORDERED: LACT1CAP57 PO (21:13)
[2017-03-17] MEDS ORDERED: CEPH500C2 PO (21:13)
[2017-03-17] MEDS ORDERED: BACL20TA PO (21:13)
[2017-03-17] MEDS ORDERED: BUSP5TAB3 PO (21:13)
[2017-03-17] MEDS ORDERED: ESCI10TA PO (21:13)
[2017-03-17] MEDS ORDERED: BUPR-96 PO (21:13)
[2017-03-17] MEDS ORDERED: NICO1PAT28 TD (21:13)
[2017-03-17] MEDS ORDERED: DIPH50CA37 PO (21:13)
[2017-03-17] MEDS ORDERED: GABA-536 PO (21:13)
== END 2017-03-13 17:20 | DRG 871 ==
LOC: ER 18:49 → CCU 21:00 → TELE 03-11 15:16 → MED 03-12 17:53
PROVIDERS: ADMIT Internal Medicine; ATTEND Internal Medicine
PROC: 5A09357 Assistance with Respiratory Ventilation, Less than 24 Consecutive Hours, Continuous Positive Airway Pressure (ICD-10-PCS; principal; 2017-03-09)
PROC: 05H533Z Insertion of Infusion Device into Right Subclavian Vein, Percutaneous Approach (ICD-10-PCS; principal; 2017-03-09)
DX: A41.9 Sepsis, unspecified organism (principal); J11.08 Influenza due to unidentified influenza virus with specified pneumonia; J96.01 Acute respiratory failure with hypoxia; G93.1 Anoxic brain damage, not elsewhere classified; J91.8 Pleural effusion in other conditions classified elsewhere; J15.211 Pneumonia due to Methicillin susceptible Staphylococcus aureus; J96.02 Acute respiratory failure with hypercapnia; D69.6 Thrombocytopenia, unspecified; E44.0 Moderate protein-calorie malnutrition; F11.20 Opioid dependence, uncomplicated; F10.230 Alcohol dependence with withdrawal, uncomplicated; F13.20 Sedative, hypnotic or anxiolytic dependence, uncomplicated; I08.1 Rheumatic disorders of both mitral and tricuspid valves; R65.20 Severe sepsis without septic shock; E66.9 Obesity, unspecified; Z68.31 Body mass index [BMI] 31.0-31.9, adult; F41.8 Other specified anxiety disorders; Y90.9 Presence of alcohol in blood, level not specified; E87.6 Hypokalemia; F17.210 Nicotine dependence, cigarettes, uncomplicated; R70.0 Elevated erythrocyte sedimentation rate; K59.00 Constipation, unspecified
CPT/HCPCS: 36415; 36600; 70030-TC; 71010; 71260; 83605; 83735; 84100; 84443; 85025; 85610; 85651; 86140; 87040; 87400; 93005; 93307; 94660; 94664; A4663; C9113; J0690; J0696; J1650; J1956; J2060; J2185; J2920; J3370; J3411; J3475; J3490; J3590; J7030; J7050; J7060; J7070; Q9967

== ENCOUNTER 2017-03-13 17:40 | Inpatient (IN) | payer BC, OTHER ==
[~2017-03-13] VITALS: Ht 182.9 cm; Wt 93.0 kg
[~2017-03-13 17:40] MED LIST changes: +ACET325T53 PO; +ALBU2.5V7 NEB; -BACL20TA PO; -BUPR-51 PO; +BUPR-96 PO; -BUSP10TA3 PO; +CEFA2PLA10 IV; -CLON0.1T PO; -CLON0.1T14 PO; -DICY20TA28 PO; -DIPH50CA37 PO; -DOCU250C14 PO; +FOLI1TAB16 PO; -GABA600T2 PO; -HYDR-3895 PO; -IBUP-1955 PO; +IPRA0.2S6 NEB; +LACT1CAP57 PO; +LORA2VIA6 IV; +MAGN400O6 PO; +MULT-24 PO; +NICO1PAT27 TD; +NICO1PAT28 TD; +NORMAL SALINE IV; +OSEL75CA PO; +PANT40TA4 PO; +PIPE3.3711 IV; +PRED-170 PO; +PRED10TA PO; +PRED20TA PO; -PSYL3.4P6 PO; +THIA100T13 PO; +VANC1.257 IV; -VANCOMYCIN IV 1,500 MG in IV DEXTROSE 5% 500 ML IV SCH; +ZOLP5TAB8 PO; +[UNRECOGNIZED DRUG - CODE] BC
--- NOTE | 2017-03-13 17:50 | NUR ---
PRE ADMISSION Pt came from 2nd floor. Pt alert and oriented to name, place, and time. Perrla. Skin warm and moist to touch. Respirations even and unlabored. Bilateral hand tremors noted. pt fidgety, tapping foot while sitting, and pressured speech noted. Pt with midline on right arm , intact and in place and saline locked, with no redness and is not hot to touch. ot=602/93 p=64 o2=96% @ ra t= 98.0. Report was received from Zachary from 2nd floor. Educated pt to unit rules with acknowledgement. No distress noted at this time.
[2017-03-13] MEDS ORDERED: LORAZEPAM 2 MG/1 ML VIAL IM PRN (18:00)
[2017-03-13] MEDS ORDERED: DIAZEPAM 5 MG TABLET PO PRN (18:00)
[2017-03-13] MEDS ORDERED: DIAZEPAM 10 MG TABLET PO PRN ×2 (18:00)
[2017-03-13] MEDS ORDERED: IPRATROPIUM BROMIDE 0.5 MG/2.5 ML NEBU NEB PRN (18:00)
[2017-03-13] MEDS ORDERED: ALBUTEROL SULFATE 2.5 MG/ 0.5 ML NEBU NEB PRN (18:00)
--- NOTE | 2017-03-13 18:00 | NUR ---
ADMISSION Pt 31 y/o male admitted for benzo dependence. Pt alert and oriented to name, place, and time. Perrla. Skin warm and moist to touch. Respirations even and unlabored. Bilateral hand tremors noted. pt fidgety, tapping foot while sitting, and pressured speech noted. Pt with midline on right arm , intact and in place and saline locked, with no redness and is not hot to touch. ns=403/93 p=64 o2=96% @ ra t= 98.0. ciwa=15. Report was received from Zachary from 2nd floor. aware. Oriented pt to unit and room. No distress noted at this time. NKA. substance hx: - ativan IV 6-8mg daily x3 days. last received 2 mg 03/13/17 @ 1130 [facility] 2015 medical hx: PNA 2017, sz withdrawal related 2006, appendectomy
[2017-03-13] MEDS: METHOCARBAMOL 750 MG TABLET PO PRN (18:45)
--- NOTE | 2017-03-13 18:46 | NUR ---
PRN pt with ciwa=11. Valium 10mg po prn per MD order given and tolerated well.
[2017-03-13 19:16] LABS: *AMPHETAMINE, URINE NEGATIVE (NEGATIVE); *BARBITURATE, URINE NEGATIVE (NEGATIVE); *CANNABINOID, URINE NEGATIVE (NEGATIVE); *COCCAINE, URINE NEGATIVE (NEGATIVE); *OPIATE, URINE NEGATIVE (NEGATIVE); *PHENCYCLIDINE SCREEN,URINE NEGATIVE (NEGATIVE)
--- NOTE | 2017-03-13 19:30 | NUR ---
Start of shift PAtient is a 31 year old male admitted to [facility] on 03-13-17 for benzo dependence. He is a full code on a regular diet and has NKA. Patient with PICC line to right upper arm intact. Patient is placed on a phenobarbitol taper to start at 2100. HE is on fall and seizure precautions. PMH of Sz galilea 2005, appendectomy and currently being treated for pneumonia. Last CIWA . Patient received PRN valium 10 mg on AM shift with fair effect noted. Safety measures in place bed locked and in lowest position with 2 side rails up for safety. Report received from Am nurse. Addendum: 03/13/17 at 2112 by DAVID CARMONA RN Patient without PICC line/ Pt with midline on right arm , intact and in place.
[2017-03-13 20:00] VITALS: BP 138/90
[2017-03-13] MEDS: OSELTAMIVIR PHOSPHATE 75 MG CAPSULE PO SCH (20:02)
[2017-03-13] MEDS: LACTOBACILLUS RHAMNOSUS GG 1 EACH CAPSULE PO SCH (20:02)
[2017-03-13] MEDS ORDERED: PHENOBARBITAL 60 MG TABLET PO SCH (21:00)
[2017-03-13] MEDS: CEFAZOLIN 2 G in IV DEXTROSE 5% 100 ML IV SCH (21:00)
[2017-03-13] MEDS: diphenhydrAMINE 50 MG CAPSULE PO PRN (23:12)
--- NOTE | 2017-03-13 23:18 | NUR ---
PRN medication Patient received Bendaryl 50 mg PO PRN for sleep. Effect pending.
[2017-03-13] MEDS ORDERED: diphenhydrAMINE 50 MG CAPSULE ONE (23:26)
[2017-03-14] VITALS: BP 117/68
--- NOTE | 2017-03-14 | NUR ---
CIWA DEFERRED FOR SLEEP
--- NOTE | 2017-03-14 00:20 | NUR ---
REASSESSMENT OF PATIENT Patient reassessed one hour after Bendaryl 50 mg PO PRN given for sleep. Effectiveness noted patient resting comfortably in bed with eyes closed.
[2017-03-14 04:00] VITALS: BP_SYST 106; BP_SYST 122; BP_DIAS 63; BP_DIAS 70
--- NOTE | 2017-03-14 04:00 | NUR ---
CIWA DEFERRED 0400 CIWA DEFERRED FOR SLEEP
[2017-03-14] MEDS: CEFAZOLIN 2 G in IV DEXTROSE 5% 100 ML IV SCH ×3 (05:00→21:50)
--- NOTE | 2017-03-14 06:53 | NUR ---
End of shift Patient is a 31 year old male re-admitted to [facility] on 03[facility]17 for benzo dependence. He is a full code on a regular diet and has NKA. Patient with mid- line to right upper arm clean, dry, and intact. Patient is placed on a phenobarbitol taper started 03-13-17 at 2100. He is on fall and seizure precautions. PMH of SZ in 2005, appendectomy and currently being treated for pneumonia. VS at 2000 BP 138/90, P 68, R 16, SPO@ 98% on RA, T 98.1 CIWA 6. Patient received PRN Benadryl 50 mg for insomnia with good effect. Patient vital signs at 0000 BP 117/68, P 90, R 16, SPO2 95% on RA, T 98.1. VS at 0400 BP 106/63, P 63, R 16, SPO2 95%. CIWA deferred. Slept a total of 6 hours. Intake 1105 ml Output [address] voids. Safety measures in place bed locked and in lowest position with 2 side rails up for safety. Report given to am nurse.
[2017-03-14 07:57] LABS: BASOPHILS % (AUTO) 0.3 % (0.0-2.0); EOSINOPHILS # (AUTO) 0.2 K/uL (0.0-0.7); EOSINOPHILS % (AUTO) 1.7 % (0.0-7.0); HEMATOCRIT 39.3 % (36.7-47.1); HEMOGLOBIN 13.8 g/dL (12.5-16.3); LYMPHOCYTES # (AUTO) 3.3 K/uL (20.0-40.0); LYMPHOCYTES % (AUTO) 32.8 % (20.5-51.5); MEAN CORPUSCULAR HEMOGLOBIN 30.7 uug (23.8-33.4); MEAN CORPUSCULAR HGB CONC 35 g/dL (32.5-36.3); MEAN CORPUSCULAR VOLUME 87.5 fL (73.0-96.2); MONOCYTES # (AUTO) 0.7 K/uL (2.0-10.0); MONOCYTES % (AUTO) 7.1 % (0.0-11.0); NEUTROPHILS # (AUTO) 5.9 K/uL (1.8-8.9); NEUTROPHILS % (AUTO) 58.1 % (38.5-71.5); PLATELET COUNT (AUTO) 181 K/uL (152-348); RED BLOOD CELL COUNT(AUTO) 4.49 MIL/uL (4.06-5.63); WHITE BLOOD COUNT (AUTO) 10.1 K/uL (3.6-10.2)
[2017-03-14 08:00] VITALS: BP 111/76
[2017-03-14 08:05] LABS: MAGNESIUM 1.9 mg/dL (1.8-2.4); POTASSIUM 3.7 mmol/L (3.5-5.1)
[2017-03-14] MEDS: PHENOBARBITAL 60 MG TABLET PO SCH ×3 (08:22→20:45)
[2017-03-14] MEDS: OSELTAMIVIR PHOSPHATE 75 MG CAPSULE PO SCH ×2 (08:22→20:45)
[2017-03-14] MEDS: NICOTINE 21 MG/24HR PATCH TD SCH (08:22)
[2017-03-14] MEDS: FAMOTIDINE 20 MG TABLET PO SCH (08:22)
[2017-03-14] MEDS: GABAPENTIN 300 MG CAPSULE PO SCH ×3 (08:22→20:45)
[2017-03-14] MEDS: LACTOBACILLUS RHAMNOSUS GG 1 EACH CAPSULE PO SCH ×2 (08:22→20:45)
[2017-03-14 08:24] LABS: BAND % (MANUAL) 2 % (0-10); EOSINOPHILS % (MANUAL) 2 % (0-8); LYMPHOCYTES % (MANUAL) 30 % (20-40); METAMYELOCYTES % 1 % (0-1); MONOCYTES % (MANUAL) 3 % (2-10); NEUTROPHILS % (MANUAL) 62 % (42-75)
--- NOTE | 2017-03-14 08:30 | NUR ---
START OF SHIFT Received report from shift mgr nurse. Patient is 31 year old male admitted for medically supervised withdrawal from Ativan. Patient is full code with NKA. Patient on 4-day phenobarb taper. On assessment this AM: CIWA: 3. Denies SOB, chest pain. Patients vitals signs: 111/76, HR 59, R 16, Temp 98.6, 02 sat 99% RA, pain 0/10. Lung sounds clear on auscultation, denies cough at this time. Reports mild anxiety. Reports last BM was 03/13/17. Med compliant with AM meds. Midline access on SCAR, patent, good blood return, dressing c/d/i. No PRN given. Patient was encouraged to attend group meetings today. Safety measures in place bed locked and in lowest position with 2 side rails up for safety. Will continue to monitor patient.
[2017-03-14] MEDS ORDERED: predniSONE 20 MG TABLET PO SCH (09:00)
[2017-03-14 12:00] VITALS: BP 136/95
[2017-03-14] MEDS: NICOTINE POLACRILEX 4 MG GUM-PK OF TEN BC PRN ×3 (15:00→21:49)
--- NOTE | 2017-03-14 15:00 | NUR ---
PRN NICOTINE GUM Patient requested for nicotine gum for smoking craving. PRN nicotine gum given. Will continue to monitor patient.
[2017-03-14 16:00] VITALS: BP 118/70
--- NOTE | 2017-03-14 16:00 | NUR ---
REASSESSMENT PRN NICOTINE GUM Patient reports nicotine gum was effective.
--- NOTE | 2017-03-14 17:06 | NUR ---
PRN NICOTINE GUM Patient requests for nicotine gum for smoking craving. PRN nicotine gum given. Will continue to monitor patient.
--- NOTE | 2017-03-14 17:06 | NUR ---
PRN VALIUM Patient's CIWA 7, complains of sweating, anxiety and tremors. PRN Valium 5mg po given. Will continue to monitor patient.
--- NOTE | 2017-03-14 18:06 | NUR ---
REASSESSEMNT PRN VALIUM Patient's current CIWA: 3, pt. reports med was effective.
--- NOTE | 2017-03-14 18:11 | NUR ---
END OF SHIFT Patient is 31 year old male admitted for medically supervised withdrawal from ativan. Patient is full code with NKA. Patient on 4-day phenobarb taper. Most recent COWS: 7. Patient reports anxiety, tremors and sweating, prn Valium 5mg given. Compliant with routine meds during this shift. Patient denies any respiratory issues at this time, saturating at 97% room air, lung sounds clear on auscultation. Midline access on SCAR, patent, good blood return, dressing c/d/i. Patient has scheduled IV antibiotic. Patient is aware of patio restriction due to PNA, patient verbalized understanding, patient on nicotine patch and requests for prn nicotine gum. Safety measures in place bed locked and in lowest position with 2 side rails up for safety. program hostsecurity shift supervisor will continue to monitor patient. Addendum: 03/14/17 at 1830 by HANDY MARTINEZ RN Patient's most recent CIWA is 3. Addendum: 03/14/17 at 1909 by HANDY MARTINEZ RN Disregard COWS score.
[2017-03-14 20:00] VITALS: BP 131/80
--- NOTE | 2017-03-14 20:00 | NUR ---
Start of Shift Pt is a 31 year old male admitted for Benzo dependence, placed on phenobarbital taper. PRN Valium available. Pt reported use of Xanax 16mg/daily, whiskey 750ml/daily, Heroin IV 2mg daily and Ativan IV 6-8mg/daily x3 days. PMH: PNA, SX (2005), appendectomy, partial bowel resection, jaw reconstruction, sedative hypnotic use d/o, major depressive d/o and anxiety d/o. NKA, regular diet, fall/seizure precautions and full code. Upon assessment, pt reports feeling anxious, tremors felt upon touch, skin clammy, reports chills with muscle aches throughout body, respirations even/unlabored, denies SOB/chest pain, denies n/v/d. Pt with midline to right upper arm. Site is intact, patent, no redness/swelling noted. Pt is on scheduled antibiotic - Ancef 2g in IV dextrose 5% 100ml. Medications due, Safety measures in place, call light within reach, side rails up x2, bed locked and in low position. Will continue to monitor. .
[2017-03-14] MEDS ORDERED: DIAZEPAM 10 MG TABLET PO PRN ×2 (21:30)
[2017-03-14] MEDS ORDERED: DIAZEPAM 5 MG TABLET PO PRN (21:30)
[2017-03-14] MEDS: diphenhydrAMINE 50 MG CAPSULE PO PRN (21:49)
--- NOTE | 2017-03-14 21:49 | NUR ---
PRN Administration Pt requests nicotine gum for nicotine craving and requests aid for sleep. Nicotine gum 4mg PRN given and Benadryl 50mg PRN administered. Safety measures in place, will continue to monitor.
--- NOTE | 2017-03-14 22:49 | NUR ---
PRN Reassessment Pt is in bed, resting with eyes closed, respirations even/unlabored. Safety measures in place, will continue to monitor.
[2017-03-14] MEDS: METHOCARBAMOL 750 MG TABLET PO PRN (23:17)
--- NOTE | 2017-03-14 23:17 | NUR ---
PRN Administration Pt states, "I can't sleep because my body hurts". Robaxin 750mg PRN administered for body/muscle aches. Safety measures in place, will continue to monitor.
[2017-03-15] VITALS: BP 112/63
--- NOTE | 2017-03-15 00:17 | NUR ---
PRN Reassessment Pt is in bed, resting with eyes closed, respirations even/unlabored. Safety measures in place, will continue to monitor.
[2017-03-15 04:00] VITALS: BP 108/73
--- NOTE | 2017-03-15 04:00 | NUR ---
CIWA deferred due to pt sleeping, to assess while pt is awake as ordered. BP 108/73, pulse 78, SpO2 96% room air, resp 16, temp 98.2, no pain 0/[address], will continue to monitor.
[2017-03-15] MEDS: CEFAZOLIN 2 G in IV DEXTROSE 5% 100 ML IV SCH ×4 (06:01→22:55)
--- NOTE | 2017-03-15 07:00 | NUR ---
End of Shift Pt is a 31 year old male admitted for Benzo dependence, placed on phenobarbital taper. PRN Valium available. Pt reported use of Xanax 16mg/daily, whiskey 750ml/daily, Heroin IV 2mg daily and Ativan IV 6-8mg/daily x3 days. PMH: PNA, SX (2005), appendectomy, partial bowel resection, jaw reconstruction, sedative hypnotic use d/o, major depressive d/o and anxiety d/o. NKA, regular diet, fall/seizure precautions and full code. During shift, pt reported feeling anxious, tremors felt upon touch, skin clammy, reported chills with muscle aches throughout body - scheduled taper medications administered, along with Robaxin 750mg PRN for muscle aches and Benadryl 50mg for sleep. Nicotine gum administered for nicotine craving. Pt with midline to right upper arm. Site is intact, patent, no redness/swelling noted. Pt is on scheduled antibiotic - Ancef 2g in IV dextrose 5% 100ml. Pt slept for 6 hours, intake of 796 ml PO, voids x3 and stool x0. Safety measures in place, call light within reach, side rails up x2, bed locked and in low position. Endorsed to day shift nurse.
[2017-03-15 08:00] VITALS: BP 117/71
--- NOTE | 2017-03-15 08:00 | NUR ---
START OF SHIFT 31 year old male admitted 03/13/17 for Heroin, alprazolam and ETOH dependence. History of pneumonia, seizure, appendectomy, partial bowel resection, jaw reconstruction, depression and anxiety, recently in ICU for pneumonia. NKA, full code status, on regular diet, fall and seizure precautions. Currently with midline IV in right arm and is on Ancef IV due to recent pneumonia. Received report from night RN. Pt on 4 day Phenobarbital taper and PRN valium. Last CIWA 4, received prn Benadryl, Robaxin, nicotine. 0800 nursing rounds, pt is alert and oriented. Midline IV dressing dry and intact, IV site without redness, swelling or drainage. Bed in low position and locked, call ng within reach, side rails up x 2 and padded. Will continue to monitor.
[2017-03-15] MEDS: PHENOBARBITAL 60 MG TABLET PO SCH ×3 (08:15→23:12)
[2017-03-15] MEDS: FAMOTIDINE 20 MG TABLET PO SCH (08:16)
[2017-03-15] MEDS: OSELTAMIVIR PHOSPHATE 75 MG CAPSULE PO SCH ×2 (08:16→23:12)
[2017-03-15] MEDS: LACTOBACILLUS RHAMNOSUS GG 1 EACH CAPSULE PO SCH ×2 (08:17→23:12)
[2017-03-15] MEDS: GABAPENTIN 300 MG CAPSULE PO SCH ×4 (08:17→23:12)
[2017-03-15] MEDS: NICOTINE 21 MG/24HR PATCH TD SCH (08:19)
[2017-03-15] MEDS ORDERED: predniSONE 10 MG TABLET PO SCH (09:00)
[2017-03-15] MEDS ORDERED: ESCITALOPRAM OXALATE 10 MG TABLET PO ONE (11:30)
[2017-03-15] MEDS ORDERED: buPROPion XL 150 MG TAB.SR.24H PO ONE (11:30)
[2017-03-15 12:00] VITALS: BP 135/90
[2017-03-15] MEDS ORDERED: DIAZEPAM 10 MG TABLET PO ONE (15:00)
--- NOTE | 2017-03-15 17:07 | NUR ---
TRANSITION OF CARE 31 year old male admitted 03/13/17 for Heroin, alprazolam and ETOH dependence. History of pneumonia, seizure, appendectomy, partial bowel resection, jaw reconstruction, depression and anxiety, recently in ICU for pneumonia. NKA, full code status, on regular diet, fall and seizure precautions. Currently with midline IV in right arm and is on Ancef IV due to recent pneumonia. Received report from night RN. Pt on 4 day Phenobarbital taper and PRN valium. Last CIWA 4, received prn Benadryl, Robaxin, nicotine. Midline IV dressing dry and intact, IV site without redness, swelling or drainage. Midline dressing changed. Report given to commercial sheet metal foreman Leah. Last CIWA 5 at 1200. No PRN medications given. Bed in low position and locked, call ng within reach, side rails up x 2 and padded.
[2017-03-15] MEDS: busPIRone 5 MG TABLET PO SCH (17:34)
[2017-03-15 18:08] VITALS: BP 131/83
--- NOTE | 2017-03-15 19:39 | NUR ---
end of shift note: pt is in stable condition no s/s of pain or discomfort at this time pt is on a pheno taper and tolerating taper well. pt's last ciwa is 5. pt 's midline was changed after shower d/t dislodgement. pt is tolerating IV atb well no A/R. pt is able to go to patio area but not allowed to smoke, pt verbalized understanding. will endorse pt to maintenance mechanic 2nd shift nurse.
--- NOTE | 2017-03-15 19:40 | NUR ---
Start of shift note Received report from day shift nurse. Pt is a 31 yo male, A+Ox4, presenting to [facility] for Opiate/Benzo/ETOH dependence. Pt has NKA, is on Full code status, and on Regular diet. Pt is on fall and Seizure precautions. Pt has HX of PNA, Seizure, Appendectomy, Partial bowel resection, Jaw SX, depression, and Anxiety. Pt is on 4 day Phenobarbital taper, tolerated well. No s/s of distress noted at this time. Respirations even and unlabored. Will continue to monitor.
[2017-03-15 20:10] VITALS: BP 124/81
[2017-03-15] MEDS: diphenhydrAMINE 50 MG CAPSULE PO PRN (23:18)
--- NOTE | 2017-03-15 23:18 | NUR ---
PRN Benadryl Pt c/o inability to sleep and requested for PRN Benadryl. Medication given and tolerated well. Will reassess within 1 HR. Will continue to monitor.
--- NOTE | 2017-03-15 23:36 | NUR ---
Midline Dislodged: Unable to flush midline, catheter noted to be dislodged. Patient refused insertion of peripheral IV. Dr Nicole aware. Unable to administer 22:00 scheduled dose of Ancef. As per Dr Nicole, patient to be started on PO antibiotic tomorrow morning.
[2017-03-16 00:11] VITALS: BP 125/85
--- NOTE | 2017-03-16 00:15 | NUR ---
PRN Benadryl Reassessment Medication effective. Pt is resting well in bed. No s/s of ASE/distress noted at this time. Respirations even and unlabored. Will continue to monitor.
[2017-03-16 04:17] VITALS: BP 123/79
[2017-03-16] MEDS: CEFAZOLIN 2 G in IV DEXTROSE 5% 100 ML IV SCH (06:00)
--- NOTE | 2017-03-16 07:00 | NUR ---
End of shift note Pt is a 31 yo male, A+Ox4, presenting to [facility] for Opiate/Benzo/ETOH dependence. Pt has NKA, is on Full code status, and on Regular diet. Pt is on fall and Seizure precautions. Pt has HX of PNA, Seizure, Appendectomy, Partial bowel resection, Jaw SX, depression, and Anxiety. Pt is on 4 day Phenobarbital taper, tolerated well. Pt was given PRN Benadryl @9198. Pt slept for a total of 6 HRS. Last CIWA: 2 @0400. No s/s of distress noted at this time. Respirations even and unlabored. Will endorse to day shift nurse.
--- NOTE | 2017-03-16 07:30 | NUR ---
START OF SHIFT Pt is a 31 yr old male, A&OX4. Pt was admitted on 03/13/17 for Benzo Dependence and is on 4 day Phenobarbital. Received report from hourly shift nurse. Pt received Benadryl PRN. Medication was effective. Pt slept for 6 hrs. Last CIWA score was x2 at 0400. Pt remains on antibiotic for PNA. No adverse reaction noted. Pt is currently in bed resting with respirations even and unlabored. No acute distress noted. Skin is intact, warm and dry to touch. Safety precautions is observed. Call light is within reach. will continue to monitor.
[2017-03-16 08:00] VITALS: BP 113/82
[2017-03-16] MEDS ORDERED: ESCITALOPRAM OXALATE 10 MG TABLET PO SCH (09:00)
[2017-03-16] MEDS ORDERED: predniSONE 5 MG TABLET PO SCH (09:00)
[2017-03-16] MEDS ORDERED: PHENOBARBITAL 60 MG TABLET PO SCH ×2 (09:00→21:00)
[2017-03-16] MEDS: LACTOBACILLUS RHAMNOSUS GG 1 EACH CAPSULE PO SCH ×2 (09:10→20:43)
[2017-03-16] MEDS: busPIRone 5 MG TABLET PO SCH ×3 (09:10→17:28)
[2017-03-16] MEDS: FAMOTIDINE 20 MG TABLET PO SCH (09:10)
[2017-03-16] MEDS: ESCITALOPRAM OXALATE 10 MG TABLET PO SCH (09:10)
[2017-03-16] MEDS: OSELTAMIVIR PHOSPHATE 75 MG CAPSULE PO SCH ×2 (09:10→20:43)
[2017-03-16] MEDS: buPROPion XL 150 MG TAB.SR.24H PO SCH (09:10)
[2017-03-16] MEDS: GABAPENTIN 300 MG CAPSULE PO SCH ×4 (09:10→20:43)
[2017-03-16] MEDS: NICOTINE 21 MG/24HR PATCH TD SCH (09:10)
[2017-03-16 12:00] VITALS: BP 129/84
[2017-03-16] MEDS ORDERED: DIAZEPAM 5 MG TABLET PO PRN (12:45)
[2017-03-16] MEDS ORDERED: DIAZEPAM 10 MG TABLET PO PRN ×2 (12:45)
[2017-03-16] MEDS ORDERED: LEVOFLOXACIN 750 MG TABLET PO SCH (13:00)
--- NOTE | 2017-03-16 13:57 | NUR ---
PRN Pt states feels anxious. Pt with pressured speech noted. Ciwa=6. Valium po prn per MD order given and tolerated well.
--- NOTE | 2017-03-16 15:00 | NUR ---
PRN RE-ASSESSMENT Valium 5mg was mildly effective. Pt continue to c/o s/s of w/d. Will continue to monitor.
[2017-03-16 16:00] VITALS: BP 134/90
[2017-03-16] MEDS ORDERED: DIAZEPAM 10 MG TABLET PO ONE (17:45)
--- NOTE | 2017-03-16 18:06 | NUR ---
MD COMMUNICATION Pt c/o increase anxiety, cold/hot chills and is observed with increase anxiety. CIWA score was 13. Reported to Dr. Nicole with new order for Valium 10mg PO x1. Medication was administered and ambrose well. Encouraged increase fluid intake. Will continue to monitor.
--- NOTE | 2017-03-16 19:00 | NUR ---
END OF SHIFT Pt is a 31 yr old male, A&OX4. Pt was admitted on 03/13/17 for Benzo Dependence and is on 4 day Phenobarbital. Medication was effective. Pt has been observed with episode of increase anxiety with agitation. Pt was c/o s/s of w/d. Valium 5mg PO PRN was given x1 and Valium 10mg X1 was given at 1804. Medication was effective. Last CIWA was 13 at 1737. Pt remains on antibiotic for PNA. No adverse reaction noted. No episodes of cough noted. Skin is intact, warm and moist to touch. Fine tremors are seen. Pt denies any n/v. Encouraged increase fluid intake. Safety precautions is observed. Call light is within reach.
--- NOTE | 2017-03-16 19:30 | NUR ---
START OF SHIFT Pt is a 31 yr old male, A&OX4. Pt was admitted for Benzo Dependence and is on 4 day Phenobarbital. Last CIWA was 13 at 1737.Per day shift report, Pt remains on antibiotic for PNA. No adverse reaction noted. No episodes of cough noted. Encouraged PO fluid intake as tolerated. Safety precautions observed. Bed locked in the lowest position with side rails x2 up for safety. Call light within reach,will continue to monitor.
[2017-03-16 20:00] VITALS: BP 127/89
[2017-03-16] MEDS ORDERED: DOXYCYCLINE HYCLATE 100 MG TABLET PO SCH (21:00)
[2017-03-16] MEDS: diphenhydrAMINE 50 MG CAPSULE PO PRN (23:43)
[2017-03-16] MEDS: CEPHALEXIN MONOHYDRATE 500 MG CAPSULE PO SCH (23:44)
--- NOTE | 2017-03-16 23:45 | NUR ---
PRN BENADRYL GIVEN FOR C/O INSOMNIA.WILL MONITOR.
[2017-03-17] VITALS: BP 123/80
--- NOTE | 2017-03-17 00:45 | NUR ---
PRN F/U PT IS RESTING IN BED WITH EYES CLOSED,NO S/S OF DISTRESS NOTED,WILL CONTINUE TO MONITOR.
[2017-03-17 04:00] VITALS: BP 101/62
[2017-03-17] MEDS: CEPHALEXIN MONOHYDRATE 500 MG CAPSULE PO SCH ×4 (06:14→23:44)
--- NOTE | 2017-03-17 06:49 | NUR ---
END OF SHIFT Pt is a 31 yr old male, A&OX4. Pt was admitted for Benzo Dependence and is on 4 day Phenobarbital. Last CIWA was 3 at 0400. Pt remains on antibiotic for PNA. No adverse reaction noted. Encouraged PO fluid intake as tolerated.PRN Benadryl was given for insomnia; pt slept 6 hrs; fluid intake was 1210 mls;voided x 2; b/m x 1.All Safety precautions observed. Bed locked in the lowest position with side rails x2 up for safety. Call light within reach,will continue to monitor.
--- NOTE | 2017-03-17 07:42 | NUR ---
START OF SHIFT NOTE: Received report from it solutions architect nurse. Pt is a 31 yo male admitted 03-13-17 for Heroin, Xanax and ETOH dependence. Pt is on a 4 day Phenobarb taper. Tolerating well. Pt has a hx of pneumonia. On po antibiotics. Pt is alert and oriented X4. Color good, skin warm and dry. Respirations even and unlabored. Safety precautions observed. Call light within reach. Will continue to monitor.
[2017-03-17 08:18] VITALS: BP 101/62
[2017-03-17] MEDS: NICOTINE 21 MG/24HR PATCH TD SCH (09:00)
[2017-03-17] MEDS ORDERED: PHENOBARBITAL 60 MG TABLET PO SCH (09:00)
[2017-03-17] MEDS: ESCITALOPRAM OXALATE 10 MG TABLET PO SCH (09:07)
[2017-03-17] MEDS: buPROPion XL 150 MG TAB.SR.24H PO SCH (09:07)
[2017-03-17] MEDS: GABAPENTIN 300 MG CAPSULE PO SCH ×2 (09:07→12:33)
[2017-03-17] MEDS: FAMOTIDINE 20 MG TABLET PO SCH (09:07)
[2017-03-17] MEDS: busPIRone 5 MG TABLET PO SCH ×3 (09:07→17:25)
[2017-03-17] MEDS: LACTOBACILLUS RHAMNOSUS GG 1 EACH CAPSULE PO SCH ×2 (09:07→20:28)
[2017-03-17] MEDS: OSELTAMIVIR PHOSPHATE 75 MG CAPSULE PO SCH ×2 (09:08→20:28)
--- NOTE | 2017-03-17 09:38 | NUR ---
MOIZ BENAVIDEZ 2 Pt states "I feel pretty good."
[2017-03-17] MEDS ORDERED: CLONIDINE HCL 0.1 MG TABLET PO PRN (13:15)
[2017-03-17 14:00] VITALS: BP 112/62
[2017-03-17] MEDS: BACLOFEN 20 MG TABLET PO SCH ×2 (14:10→20:28)
--- NOTE | 2017-03-17 14:16 | NUR ---
VSS Clonidine 0.1mg po prn given for anxiety
--- NOTE | 2017-03-17 15:20 | NUR ---
Pt feels improved after Clonidine 0.1mg po prn
[2017-03-17 16:00] VITALS: BP 120/74
[2017-03-17] MEDS: GABAPENTIN 400 MG CAPSULE PO SCH ×2 (17:25→20:28)
--- NOTE | 2017-03-17 19:03 | NUR ---
END OF SHIFT NOTE: Report given to overnight associate nurse. Pt is a 31 yo male admitted 03-13-17 for Heroin, Xanax and ETOH dependence. Pt is on a 4 day Phenobarb taper. Tolerating well. To be discharged tomorrow. Pt has a hx of pneumonia. On po antibiotics. Pt is alert and oriented X4. Color good, skin warm and dry. Respirations even and unlabored. Vital signs have remained stable throughout shift. Last CIWA 2. Pt received Clonidine 0.1mg po prn @ 1415. Safety precautions observed. Call light within reach.
--- NOTE | 2017-03-17 19:30 | NUR ---
START OF SHIFT Pt is a 31 yr old male, A&OX4. Pt was admitted for Benzo/Heroin/ETOH Dependency and was on 4 day Phenobarbital.Pt has completed his taper and is scheduled for DC tomorrow. Last CIWA was 2. Pt remains on antibiotic for PNA. No adverse reaction noted. Encouraged PO fluid intake as tolerated. Safety precautions observed. Bed locked in the lowest position with side rails x2 up for safety. Call light within reach,will continue to monitor.
[2017-03-17 20:00] VITALS: BP 123/77
[2017-03-17] MEDS ORDERED: BUSP5TAB3 PO (21:13)
[2017-03-17] MEDS ORDERED: ESCI10TA PO (21:13)
[2017-03-17] MEDS ORDERED: LACT1CAP57 PO (21:13)
[2017-03-17] MEDS ORDERED: DIPH50CA37 PO (21:13)
[2017-03-17] MEDS ORDERED: BACL20TA PO (21:13)
[2017-03-17] MEDS ORDERED: CEPH500C2 PO (21:13)
[2017-03-17] MEDS ORDERED: GABA-536 PO (21:13)
[2017-03-17] MEDS ORDERED: NICO1PAT28 TD (21:13)
[2017-03-17] MEDS ORDERED: BUPR-96 PO (21:13)
--- NOTE | 2017-03-17 23:40 | NUR ---
PRN BENADRYL GIVEN FOR C/O INSOMNIA.WILL MONITOR.
[2017-03-17] MEDS: diphenhydrAMINE 50 MG CAPSULE PO PRN (23:44)
[2017-03-18] VITALS: BP 129/89
--- NOTE | 2017-03-18 00:40 | NUR ---
PRN F/U PT IS RESTING IN BED WITH EYES CLOSED,NO S/S OF DISTRESS NOTED,WILL CONTINUE TO MONITOR.
--- NOTE | 2017-03-18 04:00 | NUR ---
V/S REFUSED/CIWA DEFERRED PT IS IN DEEP SLEEP,V/S REFUSED;CIWA DEFERRED DUE TO SLEEP.
[2017-03-18] MEDS: CEPHALEXIN MONOHYDRATE 500 MG CAPSULE PO SCH (06:23)
--- NOTE | 2017-03-18 06:55 | NUR ---
END OF SHIFT Pt is a 31 yr old male, A&OX4. Pt was admitted for Benzo/Heroin/ETOH Dependency and was on 4 day Phenobarbital.Pt has completed his taper and is scheduled for DC today. Last CIWA was 2. Pt remains on antibiotic for PNA. No adverse reaction noted. Encouraged PO fluid intake as tolerated.No prn meds given;slept 7 hrs;fluid intake was 651 mls,voided x 3. Safety precautions observed. Bed locked in the lowest position with side rails x2 up for safety. Call light within reach,will continue to monitor.
--- NOTE | 2017-03-18 07:31 | NUR ---
END OF SHIFT Received report from night nurse. 31 year old male admitted on 03/13/17 for opiate, benzo, and ETOH withdrawals. Pt is A/O x4, and is medically cleared for d/c. No acute s/s of withdrawals noted throughout night. PRN Benadryl administered and effective, pt slept for 7 hours. Most recent CIWA is 2. Pt continues on PO antibx for pneumonia. Safety measures are in place, will continue to monitor. Addendum: 03/18/17 at 0738 by ADRIA ARRIAGA RN START OF SHIFT
[2017-03-18 08:03] VITALS: BP 122/65
[2017-03-18] MEDS: BACLOFEN 20 MG TABLET PO SCH (08:15)
[2017-03-18] MEDS: GABAPENTIN 400 MG CAPSULE PO SCH (08:15)
[2017-03-18] MEDS: FAMOTIDINE 20 MG TABLET PO SCH (08:15)
[2017-03-18] MEDS: LACTOBACILLUS RHAMNOSUS GG 1 EACH CAPSULE PO SCH (08:16)
[2017-03-18] MEDS: buPROPion XL 150 MG TAB.SR.24H PO SCH (08:16)
[2017-03-18] MEDS: busPIRone 5 MG TABLET PO SCH (08:16)
[2017-03-18] MEDS: OSELTAMIVIR PHOSPHATE 75 MG CAPSULE PO SCH (08:16)
[2017-03-18] MEDS: NICOTINE 21 MG/24HR PATCH TD SCH (08:17)
[2017-03-18] MEDS ORDERED: ESCITALOPRAM OXALATE 10 MG TABLET PO SCH (09:00)
--- NOTE | 2017-03-18 09:22 | NUR ---
D/C NOTE Pt is A/O x4. V/S remain WNL. Pt denies SI/HI or hallucinations. Pt shows no s/s of acute withdrawal at this time, and is stable. has medically cleared pt for d/c. Education on Hepatitis C, smoking cessation and medication side effects provided. Pt verbalizes understanding. All pt belongings are in belonging bag, including prescriptions, pt did not have any home medications. Refuses PNU vaccination. Pt is being accompanied by EXPERIENCE SPECIALIST at this time to be transported to rehab. All needs met.
== END 2017-03-18 09:29 | disposition home or self-care (01) | DRG 895 ==
LOC: SRC 17:40
PROVIDERS: ADMIT Internal Medicine; ATTEND Internal Medicine
PROC: HZ2ZZZZ Detoxification Services for Substance Abuse Treatment (ICD-10-PCS; principal; 2017-03-13)
PROC: HZ41ZZZ Group Counseling for Substance Abuse Treatment, Behavioral (ICD-10-PCS; principal; 2017-03-13)
DX: F13.239 Sedative, hypnotic or anxiolytic dependence with withdrawal, unspecified (principal); J11.08 Influenza due to unidentified influenza virus with specified pneumonia; J15.211 Pneumonia due to Methicillin susceptible Staphylococcus aureus; F11.20 Opioid dependence, uncomplicated; F33.1 Major depressive disorder, recurrent, moderate; J90 Pleural effusion, not elsewhere classified; F10.230 Alcohol dependence with withdrawal, uncomplicated; Y90.9 Presence of alcohol in blood, level not specified; R09.02 Hypoxemia; F17.210 Nicotine dependence, cigarettes, uncomplicated; Z59.1 Inadequate housing; Z91.89 Other specified personal risk factors, not elsewhere classified; F41.9 Anxiety disorder, unspecified; Z81.8 Family history of other mental and behavioral disorders; Z81.1 Family history of alcohol abuse and dependence; Z79.899 Other long term (current) drug therapy
CPT/HCPCS: 36415; 70030-TC; 80307; 83735; 85025; J0690; J7060; J7512; J8499; Q0163

== ENCOUNTER 2019-08-23 12:53 | Emergency (ER) | payer BC, OTHER ==
[~2019-08-23] VITALS: Ht 185.4 cm; Wt 77.1 kg
--- NOTE | 2019-08-23 13:22 | NUR ---
Dr Turner at the bedside for MSE.
--- NOTE | 2019-08-23 13:22 | NUR ---
Clean pt's hands w/ saline, and pt has 1 small abrasion on Rt hand, also an old abrasion wound of occipital. Pt tolorated well, [employer] at the bedside.
[2019-08-23 13:53] VITALS: BP 120/76
--- NOTE | 2019-08-23 13:54 | NUR ---
Patient discharged to home in stable condition. Written and verbal after care instructions given. Patient verbalizes understanding of instructions. Stressed follow up or return to ER for worsening s/s.
== END 2019-08-23 13:54 | disposition home or self-care (01) ==
LOC: ER 13:01
DX: S00.00XA Unspecified superficial injury of scalp, initial encounter (principal); Y33.XXXA Other specified events, undetermined intent, initial encounter; Y93.89 Activity, other specified; Y92.59 Other trade areas as the place of occurrence of the external cause; F98.8 Other specified behavioral and emotional disorders with onset usually occurring in childhood and adolescence
CPT/HCPCS: A4217; A4663